=== PATIENT | female | born 1940 | race Caucasian/White ===

== ENCOUNTER 2020-11-26 14:59 | Inpatient (IN) ==
--- NOTE | 2020-11-26 15:41 | CT Scan Report ---
CT head/brain wo con CLINICAL HISTORY: 80 years-old Female with fall eval for injury. Acute head trauma status post fall TECHNIQUE: Multiple axial CT images of the head were obtained without contrast. A dose lowering tech nique was utilized adhering to the principles of ALARA. COMPARISON: CT cervical spine of same day FINDINGS: No acute intracranial hemorrhage, midline shift, intracranial mass, hydrocephalus, territorial ischem ia or abnormal extra-axial collection. Age-related involutional changes with patchy white matter hypo densities suggestive of chronic microvascular ischemic disease. Subcentimeter hypodensity of the left lentiform nucleus suggests chronic lacunar infarct. The calvarium is intact. Prior bilateral lens replacement. Small left supraorbital soft tissue contus ion. The paranasal sinuses, mastoid air cells, and middle ear cavities are clear. IMPRESSION: 1. No acute intracranial abnormality or calvarial fracture. 2. Small left supraorbital scalp contusion. ACT 112: Negative or not required by law. The above report was generated using voice recognition software. It may contain grammatical, syntax o r spelling errors. Electronically signed by: Lonnie Loya M.D. 11/26/2020 3:40 PM
--- NOTE | 2020-11-26 15:49 | CT Scan Report ---
CT cervical spine wo con CT DOSE: 1020.15 mGy.cm CLINICAL HISTORY: 80 years-old Female with fall eval for injury. Acute head and neck injury status p ost fall COMPARISON: Head CT of same day TECHNIQUE: Multiple axial CT images of the cervical spine were obtained without contrast. A dose low ering technique was utilized adhering to the principles of ALARA. FINDINGS: Demineralized appearance of the bones. Severe degeneration at C1-C2. Moderate disc space na rrowing at C5-C6 and C6-C7 with moderate to severe multilevel facet arthrosis. 3 mm anterolisthesis C 7 on T1 is likely on a degenerative basis secondary to chronic severe facet arthrosis. Nuchal ligamen t calcifications. Mastoid air cells and middle ear cavities are clear. No acute fracture or subluxati on. Right IJ Mjmofb-[id number]-Qbiz catheter. No pneumothorax. Enlarged heterogeneous thyroid. Calcified plaque of the carotid bulbs. No prevertebral edema. IMPRESSION: No acute fracture or subluxation. ACT 112: Negative or not required by law. The above report was generated using voice recognition software. It may contain grammatical, syntax o r spelling errors. Electronically signed by: Lonnie Loya M.D. 11/26/2020 3:47 PM
[2020-11-26] MEDS ORDERED: SODIUM CHLORIDE 0.9% 500 ML IV SCH (16:00)
--- NOTE | 2020-11-26 16:03 | Emergency Department Note ---
History of Present Illness General Chief complaint: Fall Stated complaint: FALL, LEFT SIDE HEAD PAIN Time Seen by Provider: 11/26/20 15:06 Source: patient and family History of Present Illness Provider complaint: Generalized weakness Onset (ago): week(s) Location: head Pain Consistency: + constant Maximum Pain Intensity: 4 Quality: + other (Generalized weakness) Relieved By: + none Associated symptoms: + weakness; no chest pain, no cough, no fever/chills, no headaches, no nausea/vomiting and no shortness of breath This is an 80-year-old female with a history of bladder cancer status post surgical resection on the of this month at [facility] presenting with generalized weakness and fall today. The patient states that she has been feeling unsteady and as she was walking today she fell forward and hit her head on the ground. She had no LOC. She has a small laceration to her forehead but denies any significant pain. She states that she has been generally weak since his surgery. She has been having a sore throat since the intubation as the surgery was 7 hours. She sometimes feels nauseous and has been having difficulty eating and drinking. Her son states that she has been refusing her Zofran and Tylenol and has been generally weak. He requests that she be placed in a rehab hospital as they cannot manage taking care of her at home. She denies any chest pain, cough, shortness of breath, vomiting or cold symptoms. She states that her abdominal pain has been getting better since the surgery. She does state that she thinks her naqeinjz-uz-bco took her temperature last night and it was about 100. She denies any other injuries from the fall. She has no hip pain or shoulder or extremity pain. She denies any neck pain. Home Medications Medication Instructions Recorded Confirmed Type cyanocobalamin (vitamin B-12) 1,000 mcg PO DAILY 11/26/20 11/26/20 History [Vitamin B-12] enoxaparin 40 mg SUBCUT DAILY 11/26/20 11/26/20 History hydrochlorothiazide 25 mg PO DAILY 11/26/20 11/26/20 History losartan 100 mg PO DAILY 11/26/20 11/26/20 History Allergies Allergy/AdvReac Type Severity Reaction Status Date / Time ciprofloxacin [From Cipro] Allergy Mild Unknown Verified 11/26/20 17:43 levofloxacin [From Levaquin] Allergy Mild Unknown Verified 11/26/20 17:43 Penicillins Allergy Mild Unknown Unverified 11/26/20 17:43 Sulfa (Sulfonamide Allergy Mild Unknown Unverified 11/26/20 17:43 Antibiotics) SODIUM BRAVITOL Allergy Mild Unknown Uncoded 11/26/20 17:43 Past Med/Surg History Medical History Bladder cancer Social History Smoking Status: Former smoker Hx Alcohol Use: No Hx Substance Use: No Preferred Language: French Communication Ability: Effective Beliefs That Will Affect Care: None Current Living Situation: Family Other Information That Helps Us Care for You: No Feels Safe at Home: Yes Safety Concerns: Feels Safe At This Time Assistive Devices: Glasses and Walker Assistive Devices Comment: reading glasses not here Review of Systems See HPI for pertinent positives & negatives. and A total of 10 systems reviewed and were otherwise negative Physical Exam Vital Signs Vital Signs - 24 hr 11/26/20 15:10 11/26/20 16:42 11/26/20 17:01 Temperature 36.7 C Temperature Source Oral Pulse Rate 76 71 79 Pulse Rate [Apical] Pulse Rate from SpO2 Sensor 71 79 Pulse Rhythm Regular Respiratory Rate 17 19 20 Respiratory Effort / Characteristics Non-Labored Spontaneous Respiratory Depth Normal Respiratory Pattern Regular Blood Pressure 111/42 L 132/48 L 133/53 L Blood Pressure [Right Arm] Blood Pressure Mean 65 76 79 Blood Pressure Mean [Right Arm] Pulse Oximetry 99 100 100 Oxygen Delivery Method Room Air Sepsis Recent Fever Within 48 Hours No Sepsis New/Unexplained Change in Mental Status No Sepsis Action Taken by Nursing No Action Required 11/26/20 18:00 11/26/20 18:19 Temperature 36.7 C Temperature Source Oral Pulse Rate 77 Pulse Rate [Apical] 76 Pulse Rate from SpO2 Sensor Pulse Rhythm Respiratory Rate 23 19 Respiratory Effort / Characteristics Non-Labored Respiratory Depth Normal Respiratory Pattern Regular Blood Pressure 134/47 L Blood Pressure [Right Arm] 134/47 L Blood Pressure Mean 76 Blood Pressure Mean [Right Arm] 76 Pulse Oximetry 96 94 Oxygen Delivery Method Room Air Sepsis Recent Fever Within 48 Hours Sepsis New/Unexplained Change in Mental Status Sepsis Action Taken by Nursing Constitutional: Vital signs reviewed. Eyes: Pupils are equal round reactive to light. Conjunctiva are noninjected. No EOM entrapment. ENT: Pharynx is clear without erythema or exudate. Mucous membranes are dry. Bruising around the left orbit with a 0.5 cm very superficial laceration to the left forehead. No bony tenderness to the orbit or midface or jaw. Neck supple without meningeal signs. No midline tenderness to the cervical spine. Respiratory: Clear to auscultation bilaterally. Breath sounds are equal bila terally. Cardiovascular: Regular rate and rhythm. No rubs or gallops. GI: Soft, nondistended. Bowel sounds are present. Ostomy draining into a Patterson catheter with clear yellow urine. Midline incision is clean dry and intact. No drainage or erythema or significant tenderness in the abdomen. Musculoskeletal: No peripheral edema. No lower extremity tenderness. Integumentary: No cyanosis. or jaundice. Neurologic: The patient is awake and alert. Cranial nerves II-XII are intact. Motor is 5 out of 5 all extremities. Sensation is intact to light touch all extremities. Normal speech. No pronator drift. No limb ataxia. Psychiatric: Normal affect. Not anxious appearing. Course Administered Medications Potassium Chloride/Sodium Chloride (Normal Saline W/20 Meq Kcl) 20 meq in 1,000 mls @ 125 mls/hr IV .Q8H NIRANJAN Stop: 11/28/20 04:29 Last Admin: 11/26/20 20:33 Dose: 125 mls/hr Documented by: [id number] Discontinued Medications Sodium Chloride (Nss) 500 mls @ 125 mls/hr IV .Q4H NIRANJAN Stop: 12/26/20 15:59 Last Infusion: 11/26/20 20:20 Dose: 0 mls/hr Documented by: [id number] Admin: 11/26/20 16:20 Dose: 125 mls/hr Documented by: [id number] Ceftriaxone Sodium (Rocephin) 2,000 mg in 70 mls @ 140 mls/hr IV NOW STA Stop: 11/26/20 18:01 Last Infusion: 11/26/20 18:34 Dose: 0 mls/hr Documented by: [id number] Admin: 11/26/20 17:49 Dose: 140 mls/hr Documented by: [id number] Potassium Chloride (Potassium Chloride Crtab 20 Meq Tabcr) 40 meq PO NOW STA Stop: 11/26/20 19:09 Last Admin: 11/26/20 20:28 Dose: 40 meq Documented by: [id number] Medical Decision Making Differential Diagnosis Dehydration, metabolic derangement, intracranial hemorrhage, concussion, anemia, UTI, pneumonia Medical Records Attestation: I reviewed the patient's medical records. I did perform a limited focused review of portions of the patient's old chart on the electronic medical record. The patient has had no recent pertinent visits to this hospital. Home Medications Current Medication List: was personally reviewed by me Laboratory Data Attestation: I reviewed the patient's lab results. Result diagrams: 11/26/20 16:15 11/26/20 16:15 Lab Results 11/26/20 11/26/20 11/26/20 Range/Units 16:15 16:15 16:40 WBC 13.96 H (4.8-10.8) K/uL RBC 2.53 L (4.2-5.4) M/uL Hgb 8.6 L (12.0-16.0) g/dL Hct 26.6 L (37-47) % MCV 105.1 H (80-100) fL MCH 34.0 (25-34) pg MCHC 32.3 (32-36) g/dL RDW Std Deviation 55.7 H (36.4-46.3) fL RDW Coeff of Emmett 14.4 (11.5-14.5) % Plt Count 472 H (130-400) K/uL MPV 9.9 (7.4-10.4) fL Immature Gran % (Auto) 0.4 % Neut % (Auto) 84.8 % Lymph % (Auto) 5.9 % [place] % (Auto) 8.7 % Eos % (Auto) 0.1 % Baso % (Auto) 0.1 % Neut # (Auto) 11.83 H (1.4-6.5) K/uL Lymph # (Auto) 0.83 L (1.2-3.4) K/uL [place] # (Auto) 1.22 H (0.11-0.59) K/uL Eos # (Auto) 0.01 (0-0.5) K/uL Baso # (Auto) 0.02 (0-0.2) K/uL Immature Gran # (Auto) 0.05 H (0.00-0.02) K/uL Sodium 140 (136-145) mmol/L Potassium 3.1 L (3.5-5.1) mmol/L Chloride 103 (98-107) mmol/L Carbon Dioxide 33 H (21-32) mmol/L Anion Gap 4.0 (3-11) BUN 49 H (7-18) mg/dl Creatinine 1.69 H (0.6-1.2) mg/dl Est Cr Clr Drug Dosing 25.6 ml/min Est GFR ( Amer) 32.2 Est GFR (Non-Af Amer) 27.8 BUN/Creatinine Ratio 29.0 H (10-20) Glucose 154 H (70-99) mg/dl Calcium 9.0 (8.5-10.1) mg/dl Magnesium 2.1 (1.8-2.4) mg/dl Total Bilirubin 0.6 (0.2-1) mg/dl AST 12 L (15-37) U/L ALT 16 (12-78) U/L Alkaline Phosphatase 105 (45-117) U/L Troponin I < 0.015 (0-0.045) ng/ml Total Protein 6.0 L (6.4-8.2) gm/dl Albumin 2.1 L (3.4-5.0) gm/dl Globulin 3.9 (2.5-4.0) gm/dl Albumin/Globulin Ratio 0.5 L (0.9-2) TSH 0.600 (0.300-4.500) uIu/ml Urine Color Yellow Urine Appearance Turbid A (Clear) Urine pH 8.0 H (4.5-7.5) Ur Specific [place] 1.015 (1.000-1.030) Urine Protein 2+ H (Negative) Urine Glucose (UA) Negative (Negative) Urine Ketones Negative (Negative) Urine Blood 1+ H (Negative) Urine Nitrite Positive A (Negative) Urine Bilirubin Negative (Negative) Urine Urobilinogen Negative (Negative) Ur Leukocyte Esterase 1+ H (Negative) Urine RBC 5-10 H (0-4) /hpf Urine WBC 10-30 H (0-5) /hpf Ur Epithelial Cells 0-5 (0-5) /lpf Urine Bacteria 2+ H (Negative) Hyaline Casts 5-10 H (0-5) /lpf Granular Casts 1-5 H (0) /lpf Urine Yeast Budding w/ Hyphae A (None Prsent) COVID-19 Eval Order SARS-CoV-2 (PCR) (Negative) Influenza Type A (PCR) (Neg) Influenza Type B (PCR) (Neg) RSV (RT-PCR) (Neg) 11/26/20 11/26/20 Range/Units 17:52 17:52 WBC (4.8-10.8) K/uL RBC (4.2-5.4) M/uL Hgb (12.0-16.0) g/dL Hct (37-47) % MCV (80-100) fL MCH (25-34) pg MCHC (32-36) g/dL RDW Std Deviation (36.4-46.3) fL RDW Coeff of Emmett (11.5-14.5) % Plt Count (130-400) K/uL MPV (7.4-10.4) fL Immature Gran % (Auto) % Neut % (Auto) % Lymph % (Auto) % [place] % (Auto) % Eos % (Auto) % Baso % (Auto) % Neut # (Auto) (1.4-6.5) K/uL Lymph # (Auto) (1.2-3.4) K/uL [place] # (Auto) (0.11-0.59) K/uL Eos # (Auto) (0-0.5) K/uL Baso # (Auto) (0-0.2) K/uL Immature Gran # (Auto) (0.00-0.02) K/uL Sodium (136-145) mmol/L Potassium (3.5-5.1) mmol/L Chloride (98-107) mmol/L Carbon Dioxide (21-32) mmol/L Anion Gap (3-11) BUN (7-18) mg/dl Creatinine (0.6-1.2) mg/dl Est Cr Clr Drug Dosing ml/min Est GFR ( Amer) Est GFR (Non-Af Amer) BUN/Creatinine Ratio (10-20) Glucose (70-99) mg/dl Calcium (8.5-10.1) mg/dl Magnesium (1.8-2.4) mg/dl Total Bilirubin (0.2-1) mg/dl AST (15-37) U/L ALT (12-78) U/L Alkaline Phosphatase (45-117) U/L Troponin I (0-0.045) ng/ml Total Protein (6.4-8.2) gm/dl Albumin (3.4-5.0) gm/dl Globulin (2.5-4.0) gm/dl Albumin/Globulin Ratio (0.9-2) TSH (0.300-4.500) uIu/ml Urine Color Urine Appearance (Clear) Urine pH (4.5-7.5) Ur Specific [place] (1.000-1.030) Urine Protein (Negative) Urine Glucose (UA) (Negative) Urine Ketones (Negative) Urine Blood (Negative) Urine Nitrite (Negative) Urine Bilirubin (Negative) Urine Urobilinogen (Negative) Ur Leukocyte Esterase (Negative) Urine RBC (0-4) /hpf Urine WBC (0-5) /hpf Ur Epithelial Cells (0-5) /lpf Urine Bacteria (Negative) Hyaline Casts (0-5) /lpf Granular Casts (0) /lpf Urine Yeast (None Prsent) COVID-19 Eval Order CovFluRsv at [facility] SARS-CoV-2 (PCR) NEGATIVE (Negative) Influenza Type A (PCR) Negative (Neg) Influenza Type B (PCR) Negative (Neg) RSV (RT-PCR) Negative (Neg) Imaging Data My Impression: CT head/brain wo con CLINICAL HISTORY: 80 years-old Female with fall eval for injury. Acute head trauma status post fall TECHNIQUE: Multiple axial CT images of the head were obtained without contrast. A dose lowering technique was utilized adhering to the principles of ALARA. COMPARISON: CT cervical spine of same day FINDINGS: No acute intracranial hemorrhage, midline shift, intracranial mass, hydrocephalus, territorial ischemia or abnormal extra-axial collection. Age- related involutional changes with patchy white matter hypodensities suggestive of chronic microvascular ischemic disease. Subcentimeter hypodensity of the left lentiform nucleus suggests chronic lacunar infarct. The calvarium is intact. Prior bilateral lens replacement. Small left sup raorbital soft tissue contusion. The paranasal sinuses, mastoid air cells, and middle ear cavities are clear. IMPRESSION: 1. No acute intracranial abnormality or calvarial fracture. 2. Small left supraorbital scalp contusion. ACT 112: Negative or not required by law. The above report was generated using voice recognition software. It may contain grammatical, syntax or spelling errors. Electronically signed by: Lonnie Loya M.D. 11/26/2020 3:40 PM Dictated: 11/26/20 1537 Transcribed: 11/26/[address] cervical spine wo con CT DOSE: 1020.15 mGy.cm CLINICAL HISTORY: 80 years-old Female with fall eval for injury. Acute head and neck injury status post fall COMPARISON: Head CT of same day TECHNIQUE: Multiple axial CT images of the cervical spine were obtained without contrast. A dose lowering technique was utilized adhering to the principles of ALARA. FINDINGS: Demineralized appearance of the bones. Severe degeneration at C1-C2. Moderate disc space narrowing at C5-C6 and C6-C7 with moderate to severe multilevel facet arthrosis. 3 mm anterolisthesis C7 on T1 is likely on a degenerative basis secondary to chronic severe facet arthrosis. Nuchal ligament calcifications. Mastoid air cells and middle ear cavities are clear. No acute fracture or subluxation. Right IJ Xbfzfh-e-Ctoc catheter. No pneumothorax. Enlarged heterogeneous thyroid. Calcified plaque of the carotid bulbs. No prevertebral edema. IMPRESSION: No acute fracture or subluxation. ACT 112: Negative or not required by law. The above report was generated using voice recognition software. It may contain grammatical, syntax or spelling errors. Electronically signed by: Lonnie Loya M.D. 11/26/2020 3:47 PM Dictated: 11/26/20 1540 Transcribed: 11/26/20 1540 XR chest 1V portable CLINICAL HISTORY: weakness COMPARISON STUDY: Chest radiograph 09/16/2007. FINDINGS: Lung volumes are normal. Lungs are clear. There is no pneumothorax or pleural effusion. Cardiac size is normal. Mediastinal contours are normal. There is no evidence for pulmonary edema. A right internal jugular [id number] is in place. IMPRESSION: No acute cardiopulmonary findings. ACT 112: Negative or not required by law. Electronically signed by: Sky Napier M.D. 11/26/2020 4:37 PM Dictated: 11/26/20 1636Transcribed: 11/26/20 1636 ECG Data Attestation: I personally reviewed and interpreted this ECG as follows: Indication: + weakness Rate (beats per minute): 75 Rhythm: + normal sinus ECG Liguori: + Normal ECG ST segments: no ST elevation ECG Findings: no PVCs Head Trauma GCS Score: 15 MDM Narrative I did evaluate the patient as noted above. Patient is presenting with generalized weakness and a low-grade temperature last night. She is postop approximately 15 days. She denies any significant abdominal pain and states that her abdomen feels better. Her son is concerned that she cannot be cared for at home due to her increased weakness. IV access was established. I did place an order for continuous cardiac monitoring. The monitor showed normal sinus rhythm at a rate of 70 bpm. I did order and personally review the patient's 12-lead EKG as described above. She has no acute ischemic changes on twelve-lead EKG. I did order and personally reviewed the images of the patient's chest x-ray as described above. There is no evidence of pneumonia. I did order a urine analysis. She does have a UTI. She does have multiple drug allergies. She is not sure if she is taking cephalosporins before. I did treat her with 2 g of IV ceftriaxone. I did order and review the patient's blood work as noted in the electronic medical record. Her white blood cell count is 13.9. Her hemoglobin is 8.6. Platelets are 472. Electrolytes demonstrate hypokalemia with a potassium of 3.1. Creatinine is 1.69. Baseline is unclear. She was given normal saline IV. I did order a CT of the head and cervical spine. I did review the images myself as well as the radiology report as described above. There is no evidence of acute cervical fracture or dislocation. No acute intracranial abnormality. I did discuss the test results with the patient and her son. I did recommend hospitalization for further care and evaluation. I did discuss case with the hospitalist and high risk case manager. Impression & Plan Complicated UTI (urinary tract infection), Generalized weakness, Fall, Acute head injury, Anemia, Acute hypokalemia, Elevated serum creatinine Discharge Plan Visit Data Chief Complaint: Fall Stated Complaint: FALL, LEFT SIDE HEAD PAIN ED Provider: Colt Moore Discharge Problem: Complicated UTI (urinary tract infection), Generalized weakness, Fall, Acute head injury, Anemia, Acute hypokalemia, Elevated serum creatinine Patient Disposition: Admitted As Inpatient Discharge Instructions Interventions: ED Discharge Assessment Last Done: 11/26/20 19:31
[2020-11-26 16:30] LABS: Basophils # (auto) 0.02 K/uL (0-0.2); Basophils % (auto) 0.1 %; Eosinophils # (auto) 0.01 K/uL (0-0.5); Eosinophils % (auto) 0.1 %; Hematocrit (blood only) 26.6 % (37-47); Hemoglobin 8.6 g/dL (12.0-16.0); Immature Granulocytes # (auto) 0.05 K/uL (0.00-0.02); Immature Granulocytes % (auto) 0.4 %; Lymphocytes # (auto) 0.83 K/uL (1.2-3.4); Lymphocytes % (auto) 5.9 %; Mean Corpuscular Hgb Conc 32.3 g/dL (32-36); Mean Corpuscular Volume 105.1 fL (80-100); Mean Platelet Volume 9.9 fL (7.4-10.4); Monocytes # (auto) 1.22 K/uL (0.11-0.59); Monocytes % (auto) 8.7 %; Neutrophils # (auto) 11.83 K/uL (1.4-6.5); Neutrophils % (auto) 84.8 %; Platelet Count 472 K/uL (130-400); RDW Coefficient of Variation 14.4 % (11.5-14.5); RDW Standard Deviation 55.7 fL (36.4-46.3); Red Blood Count 2.53 M/uL (4.2-5.4); White Blood Count 13.96 K/uL (4.8-10.8)
--- NOTE | 2020-11-26 16:38 | XRay Report ---
XR chest 1V portable CLINICAL HISTORY: weakness COMPARISON STUDY: Chest radiograph 09/16/2007. FINDINGS: Lung volumes are normal. Lungs are clear. There is no pneumothorax or pleural effusion. Car diac size is normal. Mediastinal contours are normal. There is no evidence for pulmonary edema. A rig ht internal jugular [id number]-[id number] is in place. IMPRESSION: No acute cardiopulmonary findings. ACT 112: Negative or not required by law. Electronically signed by: Sky Napier M.D. 11/26/2020 4:37 PM
--- NOTE | 2020-11-26 16:49 | Electrocardiogram Report ---
Test Reason : Blood Pressure : / mmHG Vent. Rate : 075 BPM Atrial Rate : 075 BPM P-R Int : 136 ms QRS Dur : 078 ms QT Int : 404 ms P-R-T Axes : 056 035 024 degrees QTc Int : 451 ms Normal sinus rhythm Normal ECG No previous ECGs available Confirmed by Bennett Reyes ([id number]) on 11/26/2020 4:49:21 PM Referred By: REFERRED SELF Confirmed By:Ghassan Reyes
[2020-11-26 16:50] LABS: Alanine Aminotransferase 16 U/L (12-78); Albumin Level 2.1 gm/dl (3.4-5.0); Aspartate Aminotransferase 12 U/L (15-37); Blood Urea Nitrogen 49 mg/dl (7-18); Carbon Dioxide 33 mmol/L (21-32); Chloride 103 mmol/L (98-107); Creatinine Clr Calc Pharmacy 25.6 ml/min; Est GFR (African American) 32.2; Est GFR (Non-African American) 27.8; Glucose 154 mg/dl (70-99); Magnesium 2.1 mg/dl (1.8-2.4); Potassium 3.1 mmol/L (3.5-5.1); Sodium 140 mmol/L (136-145)
[2020-11-26 17:02] LABS: Appearance Urine Turbid (Clear); Bilirubin Urine Negative (Negative); Blood Urine 1+ (Negative); Color Urine Yellow; Glucose Urine UA Negative (Negative); Ketones Urine Negative (Negative); Leukocyte Esterase Urine 1+ (Negative); Nitrite Urine Positive (Negative); Protein Urine 2+ (Negative); Specific Gravity Urine 1.015 (1.000-1.030); Urobilinogen Urine Negative (Negative)
[2020-11-26 17:05] LABS: Albumin Globulin Ratio 0.5 (0.9-2); Alkaline Phosphatase 105 U/L (45-117); Bilirubin,Total 0.6 mg/dl (0.2-1); Globulin 3.9 gm/dl (2.5-4.0); Troponin I < 0.015 ng/ml (0-0.045)
[2020-11-26 17:06] LABS: Bacteria Urine 2+ (Negative); Epithelial Cell Urine 0-5 /lpf (0-5)
[2020-11-26] MEDS ORDERED: cefTRIAXone SODIUM 2,000 MG/70 ML BAG IV STA (17:32)
[2020-11-26 19:04] LABS: Influenza A virus by PCR Negative (Neg); Influenza B virus by PCR Negative (Neg); RSV by PCR Negative (Neg); SARS CoV2 RNA(COVID-19) InHosp NEGATIVE (Negative)
--- NOTE | 2020-11-26 19:07 | History & Physical Report ---
Date of Service November 26, 2020 Assessment & Plan (1) Complicated UTI (urinary tract infection): Recent complete cystectomy with ureteral ileal conduit on 11/11/2020 Has been complaining of weakness with fever Noted to have UTI on UA examination Received ceftriaxone 2 g IV and will continue with 1 g daily Urine and blood cultures have been sent-await sensitivity (2) S/P ileal conduit: Recent complete hysterectomy with ureteral ileal conduit on 11/11/2020 Conduit site looks intact with clean urine (3) Bladder cancer: History of bladder cancer and is status post surgery as above Status post hysterectomy and pelvic lymphadenectomy on 11/11/2020 (4) Acute kidney injury superimposed on chronic kidney disease: History of CKD stage IIIb Has acute on chronic kidney disease Will give adequate amount of intravenous fluid and monitor creatinine (5) Hypertension: Will hold hydrochlorothiazide and lisinopril for now (6) Generalized weakness: Likely secondary to recent complex surgery on 11/11/2020 We will get PT and OT evaluation (7) Status post fall: Mechanical fall without any significant injury CT of the head and neck remain unremarkable Minor superficial injury left forehead and adjoining area of the eyebrow DVT prophylaxis Subcu Lovenox CODE STATUS Full History of Present Illness Chief Complaint: Fever, weakness and fall Primary Care Provider: Gumaro Rivera DO She is an 80-year-old female with significant past medical history of malignant neoplasm of bladder status post complete cystectomy with ureteral ileal conduit with bilateral pelvic lymphadenectomy and hysterectomy on 11/11/2020 and also history of hypertension and chronic kidney disease apparently has had a mechanical fall this afternoon at home when she missed a step and ended up falling. No loss of consciousness. Apparently she has been complaining of extreme weakness and tiredness since after surgery and has been getting home PT and OT evaluation to get back her strength. She complains to have fever with occasional sweating at home. His drainage from the eye ileal conduit does not look that dirty. She denies any significant pain in the abdomen. She has bruising involving the left side of the forehead and adjoining left eyebrow but no other significant injury from the fall. She was noted to have UTI on UA examination and also clinically dry with acute on chronic kidney disease. She was admitted to medical telemetry unit for continuation of care Allergies Allergy/AdvReac Type Severity Reaction Status Date / Time ciprofloxacin [From Cipro] Allergy Mild Unknown Verified 11/26/20 17:43 levofloxacin [From Levaquin] Allergy Mild Unknown Verified 11/26/20 17:43 Penicillins Allergy Mild Unknown Unverified 11/26/20 17:43 Sulfa (Sulfonamide Allergy Mild Unknown Unverified 11/26/20 17:43 Antibiotics) SODIUM BRAVITOL Allergy Mild Unknown Uncoded 11/26/20 17:43 Home Medications Medication Instructions Recorded Confirmed Type cyanocobalamin (vitamin B-12) 1,000 mcg PO DAILY 11/26/20 11/26/20 History [Vitamin B-12] enoxaparin 40 mg SUBCUT DAILY 11/26/20 11/26/20 History hydrochlorothiazide 25 mg PO DAILY 11/26/20 11/26/20 History losartan 100 mg PO DAILY 11/26/20 11/26/20 History Past Med/Surg History Medical History Bladder cancer Social History Smoking Status: Former smoker Hx Alcohol Use: No Hx Substance Use: No Preferred Language: Cypriot Communication Ability: Effective Beliefs That Will Affect Care: None Current Living Situation: Family Other Information That Helps Us Care for You: No Feels Safe at Home: Yes Safety Concerns: Feels Safe At This Time Assistive Devices: Glasses and Walker Assistive Devices Comment: reading glasses not here Review of Systems Review of Systems: All systems reviewed & are unremarkable except as noted in HPI & below Physical Exam Physical Exam: Lying in bed with profound weakness but no apparent distress Constitutional: + ill appearing, average body habitus and + in distress Eyes: PERRL, conjunctivae normal, anicteric sclerae ENMT: external ear and nose normal, oropharynx normal Neck: trachea midline, no thyromegaly Respiratory: no respiratory distress Auscultation: lungs clear to au scultation bilaterally Cardiovascular: Rate/Rhythm: regular rate and regular rhythm Heart Sounds: no murmur Extremities: no edema Gastrointestinal (Abdomen): Inspection/Auscultation: normal bowel sounds; abdomen not distended Percussion/Palpation: + abdomen tender (Lower abdomen) and abdomen soft Musculoskeletal: No acute arthritis in any joint Neurologic: Alert, awake and oriented x3. Generally very weak and lethargic but moving all the limbs equally Psychiatric: A+Ox3, euthymic affect Lymphatic: no cervical or axillary lymphadenopathy Results & Data Results & Data ([facility]) Vital Signs (Past 12 Hours) Vital Signs Temp Pulse Pulse Resp BP BP Pulse Ox 11/26/20 18:19 36.7 C 76 19 134/47 L 94 11/26/20 17:01 79 20 133/53 L 100 11/26/20 16:42 71 19 132/48 L 100 11/26/20 15:10 36.7 C 76 17 111/42 L 99 Laboratory Results Short CBC 11/26/20 Range/Units 16:15 WBC 13.96 H (4.8-10.8) K/uL Hgb 8.6 L (12.0-16.0) g/dL Hct 26.6 L (37-47) % Plt Count 472 H (130-400) K/uL BMP 11/26/20 16:15 Sodium 140 Potassium 3.1 L Chloride 103 Carbon Dioxide 33 H BUN 49 H Creatinine 1.69 H Glucose 154 H Calcium 9.0 Cardiac Enzymes 11/26/20 Range/Units 16:15 Troponin I < 0.015 (0-0.045) ng/ml Liver Function 11/26/20 Range/Units 16:15 Total Bilirubin 0.6 (0.2-1) mg/dl AST 12 L (15-37) U/L ALT 16 (12-78) U/L Alkaline Phosphatase 105 (45-117) U/L Albumin 2.1 L (3.4-5.0) gm/dl Urine 11/26/20 Range/Units 16:40 Urine Color Yellow Urine Appearance Turbid A (Clear) Urine pH 8.0 H (4.5-7.5) Ur Specific [place] 1.015 (1.000-1.030) Urine Protein 2+ H (Negative) Urine Glucose (UA) Negative (Negative) Medications Administered Current Inpatient Medications Sodium Chloride (Nss) 500 mls @ 125 mls/hr IV .Q4H NIRANJAN Stop: 12/26/20 15:59 Last Admin: 11/26/20 16:20 Dose: 125 mls/hr Documented by: Ceftriaxone Sodium 1,000 mg/ (Dextrose) 50 mls @ 100 mls/hr IV Q24H NIRANJAN; Protocol Stop: 12/06/20 18:59 Code Status & VTE Plan VTE Prophylaxis Plan VTE Prophylaxis will be ordered: Yes
[2020-11-26] MEDS ORDERED: POTASSIUM CHLORIDE CRTAB 20 MEQ TABCR PO STA (19:08)
[2020-11-26] MEDS: NSS + 20MEQ KCL 20 MEQ/1,000 ML BAG IV SCH (20:33)
[2020-11-27] MEDS: NSS + 20MEQ KCL 20 MEQ/1,000 ML BAG IV SCH ×3 (05:01→20:33)
[2020-11-27 07:17] LABS: Basophils # (auto) 0.02 K/uL (0-0.2); Basophils % (auto) 0.2 %; Eosinophils # (auto) 0.08 K/uL (0-0.5); Eosinophils % (auto) 0.6 %; Hematocrit (blood only) 24.4 % (37-47); Hemoglobin 7.9 g/dL (12.0-16.0); Immature Granulocytes # (auto) 0.09 K/uL (0.00-0.02); Immature Granulocytes % (auto) 0.7 %; Lymphocytes # (auto) 1.18 K/uL (1.2-3.4); Mean Corpuscular Hemoglobin 33.9 pg (25-34); Mean Corpuscular Hgb Conc 32.4 g/dL (32-36); Mean Corpuscular Volume 104.7 fL (80-100); Monocytes # (auto) 1.32 K/uL (0.11-0.59); Monocytes % (auto) 10.1 %; Neutrophils # (auto) 10.35 K/uL (1.4-6.5); Neutrophils % (auto) 79.4 %; Platelet Count 412 K/uL (130-400); RDW Coefficient of Variation 14.7 % (11.5-14.5); RDW Standard Deviation 56.2 fL (36.4-46.3); Red Blood Count 2.33 M/uL (4.2-5.4); White Blood Count 13.04 K/uL (4.8-10.8)
[2020-11-27 07:45] LABS: BUN Creatinine Ratio 32.7 (10-20); Calcium 8.5 mg/dl (8.5-10.1); Creatinine Clr Calc Pharmacy 33.8 ml/min; Est GFR (African American) 45.1; Est GFR (Non-African American) 38.9; Magnesium 2.1 mg/dl (1.8-2.4); Phosphorus 2.8 mg/dl (2.5-4.9); Potassium 3.6 mmol/L (3.5-5.1)
[2020-11-27 07:50] LABS: Rouleaux 1+
[2020-11-27] MEDS: ENOXAPARIN INJ 40 MG/0.4 ML SYR SQ SCH (08:37)
[2020-11-27] MEDS: CYANOCOBALAMIN 500 MCG TABLET (VITAMIN B-12) PO SCH (08:38)
[2020-11-27] MEDS ORDERED: ENOXAPARIN INJ 30 MG/0.3 ML SYR SQ SCH (09:00)
[2020-11-27] MEDS: LOSARTAN POTASSIUM 50 MG TAB PO SCH (11:51)
--- NOTE | 2020-11-27 16:01 | Hospitalist Progress Note ---
Date of Service November 27, 2020 Assessment & Plan (1) Complicated UTI (urinary tract infection): Recent complete cystectomy with ureteral ileal conduit on 11/11/2020 Has been complaining of weakness with fever Noted to have UTI on UA examination Received ceftriaxone 2 g IV and will continue with 1 g daily Urine is growing pinpoint growth and reintubating Blood cultures grew gram-negative bacilli-further identification and sensitivity are pending (2) S/P ileal conduit: Recent complete hysterectomy with ureteral ileal conduit on 11/11/2020 Conduit site looks intact with clean urine (3) Bladder cancer: History of bladder cancer and is status post surgery as above Status post hysterectomy and pelvic lymphadenectomy on 11/11/2020 (4) Acute kidney injury superimposed on chronic kidney disease: History of CKD stage IIIb Has acute on chronic kidney disease Will give adequate amount of intravenous fluid and monitor creatinine Creatinine has been improving and will restart losartan to control blood pressure (5) Hypertension: Will hold hydrochlorothiazide and lisinopril for now Losartan has been restarted Continue to hold hydrochlorothiazide (6) Generalized weakness: Likely secondary to recent complex surgery on 11/11/2020 We will get PT and OT evaluation (7) Status post fall: Mechanical fall without any significant injury CT of the head and neck remain unremarkable Minor superficial injury left forehead and adjoining area of the eyebrow We will get PT and OT evaluation DVT prophylaxis Subcu Lovenox CODE STATUS Full Admission and Anticipated Discharge Date Admission Date: November 26, 2020 Subjective 11/27/2020 Patient was seen and examined in medical telemetry unit She has been feeling a little bit better today Remains generally weak but otherwise stable Denies any fever and/or chills, any abdominal pain nausea and or vomiting Review of Systems Review of Systems: All systems reviewed and are unremarkable except as noted below Neurologic: + generalized weakness Physical Exam Physical Exam: Lying in bed with profound weakness but no apparent distress Constitutional: + ill appearing, average body habitus and + in distress Eyes: PERRL, conjunctivae normal, anicteric sclerae ENMT: external ear and nose normal, oropharynx normal Neck: trachea midline, no thyromegaly Respiratory: no respiratory distress Auscultation: lungs clear to auscultation bilaterally Cardiovascular: Rate/Rhythm: regular rate and regular rhythm Heart Sounds: no murmur Extremities: no edema Gastrointestinal (Abdomen): Inspection/Auscultation: normal bowel sounds; abdomen not distended Percussion/Palpation: + abdomen tender (Lower abdomen) and abdomen soft Musculoskeletal: No acute arthritis in any joint Neurologic: Alert, awake and oriented x3. Generally weak but no neuro deficit Psychiatric: A+Ox3, euthymic affect Lymphatic: no cervical or axillary lymphadenopathy Results & Data Results & Data ([facility]) Vital Signs (Past 12 Hours) Vital Signs Temp Pulse Resp BP Pulse Ox 11/27/20 15:18 36.4 C L 108 H 20 106/50 L 98 11/27/20 11:42 36.7 C 79 18 118/54 L 93 11/27/20 07:32 36.9 C 80 20 131/57 L 98 Laboratory Results Short CBC 11/26/20 11/27/20 Range/Units 16:15 06:47 WBC 13.96 H 13.04 H (4.8-10.8) K/uL Hgb 8.6 L 7.9 L (12.0-16.0) g/dL Hct 26.6 L 24.4 L (37-47) % Plt Count 472 H 412 H (130-400) K/uL BMP 11/26/20 11/27/20 16:15 06:47 Sodium 140 141 Potassium 3.1 L 3.6 D Chloride 103 108 H Carbon Dioxide 33 H 29 BUN 49 H 42 H Creatinine 1.69 H 1.28 H D Glucose 154 H 106 H Calcium 9.0 8.5 Cardiac Enzymes 11/26/20 Range/Units 16:15 Troponin I < 0.015 (0-0.045) ng/ml Liver Function 11/26/20 Range/Units 16:15 Total Bilirubin 0.6 (0.2-1) mg/dl AST 12 L (15-37) U/L ALT 16 (12-78) U/L Alkaline Phosphatase 105 (45-117) U/L Albumin 2.1 L (3.4-5.0) gm/dl Urine 11/26/20 Range/Units 16:40 Urine Color Yellow Urine Appearance Turbid A (Clear) Urine pH 8.0 H (4.5-7.5) Ur Specific [place] 1.015 (1.000-1.030) Urine Protein 2+ H (Negative) Urine Glucose (UA) Negative (Negative) Medications Administered Current Inpatient Medications Cyanocobalamin (Cyanocobalamin 500 Mcg Tablet (Vitamin B-12)) 1,000 mcg PO DAILY NIRANJAN Stop: 12/27/20 08:59 Last Admin: 11/27/20 08:38 Dose: 1,000 mcg Documented by: Enoxaparin Sodium (Enoxaparin Inj 40 Mg/0.4 Ml Syr) 40 mg SQ DAILY NIRANJAN Stop: 12/27/20 08:59 Last Admin: 11/27/20 08:37 Dose: 40 mg Documented by: Ceftriaxone Sodium 1,000 mg/ (Dextrose) 50 mls @ 100 mls/hr IV Q24H NIRANJAN; Protocol Stop: 12/07/20 17:59 Potassium Chloride/Sodium Chloride (Normal Saline W/20 Meq Kcl) 20 meq in 1,000 mls @ 125 mls/hr IV .Q8H NIRANJAN Stop: 11/28/20 04:29 Last Admin: 11/27/20 11:51 Dose: 125 mls/hr Documented by: Losartan Potassium (Losartan Potassium 50 Mg Tab) 100 mg PO DAILY NIRANJAN Stop: 12/27/20 09:44 Last Admin: 11/27/20 11:51 Dose: 100 mg Documented by:
[2020-11-27] MEDS: cefTRIAXone SODIUM 1,000 MG in DEXTROSE 5% 50 ML IV SCH (18:34)
[2020-11-28] MEDS: LOSARTAN POTASSIUM 50 MG TAB PO SCH (07:48)
[2020-11-28] MEDS: ENOXAPARIN INJ 40 MG/0.4 ML SYR SQ SCH (07:48)
[2020-11-28] MEDS: CYANOCOBALAMIN 500 MCG TABLET (VITAMIN B-12) PO SCH (07:48)
--- NOTE | 2020-11-28 07:55 | Hospitalist Progress Note ---
Date of Service November 28, 2020 Assessment & Plan (1) Complicated UTI (urinary tract infection): Recent complete cystectomy with ureteral ileal conduit on 11/11/2020 Has been complaining of weakness with fever Noted to have UTI on UA examination Received ceftriaxone 2 g IV and will continue with 1 g daily Urine is growing pinpoint growth and re-incubating Blood cultures grew gram-negative bacilli, repeat ordered today to make sure blood is sterile +Leukocytosis-improving (2) S/P ileal conduit: Recent complete hysterectomy with ureteral ileal conduit on 11/11/2020 Conduit site looks intact with clean urine (3) Bladder cancer: History of bladder cancer and is status post surgery as above Status post hysterectomy and pelvic lymphadenectomy on 11/11/2020 (4) Acute kidney injury superimposed on chronic kidney disease: History of CKD stage IIIb Has acute on chronic kidney disease Creatinine has been improving restarted losartan to control blood pressure (5) Hypertension: Will hold hydrochlorothiazide and DC lisinopril, no indication for HUMZA-I/ARB combo Losartan has been restarted (6) Generalized weakness: Likely secondary to recent complex surgery on 11/11/2020 PT and OT (7) Status post fall: Mechanical fall without any significant injury CT of the head and neck unremarkable Minor superficial injury left forehead and adjoining area of the eyebrow DVT prophylaxis Subcu Lovenox CODE STATUS Full Labs checked, Hb dropped, wait today's labs ROS-No Headache, No Visual Changes, No Nausea, No Vomiting, No Fever, No Chills, No Neck Pain or Stiffness, No Chest Pain, No Palpitations, No SOB, No SANCHES, No Cough, No Sputum, No Wheezing, No Abdominal Pain, No Diarrhea, No Hematemesis, No Hemoptysis, No Unexpected Weight Loss, No Flank pain, No Melena, No Hematochezia, No Frequency, No Urgency, No Burning, No Hematuria, No Rashes, No Diaphoresis. Appetite is Normal, +Pelvic Pain Physical Exam Gen-AAO x 3, NAD, Afebrile, tender pelvis when legs moved Head-NCAT, EOMI, PERRLA, Anicteric Sclera, No Posterior Pharyngeal Erythema Neck-Supple, No JVD, No Thyromegaly, No Masses, No LAD, No Bruits Lungs-Clear to Auscultation Bilaterally, No Rales, No Rhonchi, No Wheezing, No Crepitus Chest-No S4, +S1, +S2, No S3, No Murmurs, No Rubs, No Gallops, No Ectopy Abdomen-Soft, Bowel Sounds Present, Non Tender, Non Distended, No Hepatomegaly, No Splenomegaly, No Palpable Masses, No Rebound, No Rigidity, No Guarding Musculoskeletal-No CVAT Extremities-No Cyanosis, No Clubbing, No Edema Nuero-Cranial Nerves II-XII grossly intact, Motor WNL, DTRs WNL, Strength WNL, Non Focal Psych-Normal Mood Admission and Anticipated Discharge Date Admission Date: November 26, 2020 Results & Data Results & Data ([facility]) Vital Signs (Past 12 Hours) Vital Signs Temp Pulse Pulse Resp BP Pulse Ox 11/28/20 07:28 36.5 C 94 H 18 145/69 H 97 11/28/20 03:00 36.4 C L 97 H 20 149/71 H 97 11/28/20 00:37 97 H 11/27/20 22:58 37 C 93 H 20 145/67 H 97
[2020-11-28 08:56] LABS: Basophils # (auto) 0.04 K/uL (0-0.2); Basophils % (auto) 0.3 %; Eosinophils # (auto) 0.17 K/uL (0-0.5); Eosinophils % (auto) 1.4 %; Hematocrit (blood only) 28.1 % (37-47); Hemoglobin 8.8 g/dL (12.0-16.0); Immature Granulocytes # (auto) 0.09 K/uL (0.00-0.02); Immature Granulocytes % (auto) 0.7 %; Lymphocytes # (auto) 1.25 K/uL (1.2-3.4); Lymphocytes % (auto) 10.1 %; Mean Corpuscular Hemoglobin 33.2 pg (25-34); Mean Corpuscular Hgb Conc 31.3 g/dL (32-36); Monocytes % (auto) 8.1 %; Neutrophils # (auto) 9.84 K/uL (1.4-6.5); Neutrophils % (auto) 79.4 %; Platelet Count 514 K/uL (130-400); RDW Coefficient of Variation 14.7 % (11.5-14.5); RDW Standard Deviation 55.9 fL (36.4-46.3); Red Blood Count 2.65 M/uL (4.2-5.4); White Blood Count 12.39 K/uL (4.8-10.8)
[2020-11-28 09:59] LABS: BUN Creatinine Ratio 24.5 (10-20); Calcium 8.7 mg/dl (8.5-10.1); Creatinine Clr Calc Pharmacy 39.1 ml/min; Est GFR (African American) 53.6; Est GFR (Non-African American) 46.2; Potassium 3.5 mmol/L (3.5-5.1)
[2020-11-28] MEDS: metroNIDAZOLE 500 MG/100 ML BAG IV SCH (17:52)
[2020-11-28] MEDS: cefTRIAXone SODIUM 1,000 MG in DEXTROSE 5% 50 ML IV SCH (17:52)
[2020-11-29] MEDS: metroNIDAZOLE 500 MG/100 ML BAG IV SCH ×3 (00:26→17:12)
[2020-11-29 06:49] LABS: Hematocrit (blood only) 24.4 % (37-47); Mean Corpuscular Hemoglobin 33.8 pg (25-34); Mean Corpuscular Hgb Conc 32.8 g/dL (32-36); Platelet Count 431 K/uL (130-400); RDW Coefficient of Variation 14.9 % (11.5-14.5); RDW Standard Deviation 55.5 fL (36.4-46.3); Red Blood Count 2.37 M/uL (4.2-5.4); White Blood Count 10.27 K/uL (4.8-10.8)
[2020-11-29 07:23] LABS: BUN Creatinine Ratio 28.9 (10-20); Calcium 8.1 mg/dl (8.5-10.1); Creatinine Clr Calc Pharmacy 46.3 ml/min; Est GFR (African American) 64.6; Est GFR (Non-African American) 55.8; Potassium 3.7 mmol/L (3.5-5.1)
[2020-11-29] MEDS: CYANOCOBALAMIN 500 MCG TABLET (VITAMIN B-12) PO SCH (08:19)
[2020-11-29] MEDS: ENOXAPARIN INJ 40 MG/0.4 ML SYR SQ SCH (08:19)
[2020-11-29] MEDS: LOSARTAN POTASSIUM 50 MG TAB PO SCH (08:19)
[2020-11-29] MEDS ORDERED: ACETAMINOPHEN 325 MG TAB PO PRN (08:23)
--- NOTE | 2020-11-29 08:27 | Hospitalist Progress Note ---
Date of Service November 29, 2020 Assessment & Plan (1) Complicated UTI (urinary tract infection): Recent complete cystectomy with ureteral ileal conduit on 11/11/2020 Has been complaining of weakness with fever Noted to have UTI on UA examination Received ceftriaxone 2 g IV and will continue with 1 g daily Urine is growing pinpoint growth and re-incubating Blood cultures grew gram-negative bacilli, repeat ordered 11/28 to make sure blood is sterile +Leukocytosis-resolved (2) S/P ileal conduit: Recent complete hysterectomy with ureteral ileal conduit on 11/11/2020 Conduit site looks intact with clean urine (3) Bladder cancer: History of bladder cancer and is status post surgery as above Status post hysterectomy and pelvic lymphadenectomy on 11/11/2020 (4) Acute kidney injury superimposed on chronic kidney disease: History of CKD stage IIIb Has acute on chronic kidney disease Creatinine has been improving restarted losartan to control blood pressure (5) Hypertension: Will hold hydrochlorothiazide and DC lisinopril, no indication for HUMZA-I/ARB combo Losartan has been restarted (6) Generalized weakness: Likely secondary to recent complex surgery on 11/11/2020 PT and OT (7) Status post fall: Mechanical fall without any significant injury CT of the head and neck unremarkable Minor superficial injury left forehead and adjoining area of the eyebrow DVT prophylaxis Subcu Lovenox CODE STATUS Full Labs checked ROS-No Headache, No Visual Changes, No Nausea, No Vomiting, No Fever, No Chills, No Neck Pain or Stiffness, No Chest Pain, No Palpitations, No SOB, No SANCHES, No Cough, No Sputum, No Wheezing, No Abdominal Pain, No Diarrhea, No Hematemesis, No Hemoptysis, No Unexpected Weight Loss, No Flank pain, No Melena, No Hematochezia, No Frequency, No Urgency, No Burning, No Hematuria, No Rashes, No Diaphoresis. Appetite is Normal, +Pelvic Pain Physical Exam Gen-AAO x 3, NAD, Afebrile, tender pelvis when legs moved Head-NCAT, EOMI, PERRLA, Anicteric Sclera, No Posterior Pharyngeal Erythema Neck-Supple, No JVD, No Thyromegaly, No Masses, No LAD, No Bruits Lungs-Clear to Auscultation Bilaterally, No Rales, No Rhonchi, No Wheezing, No Crepitus Chest-No S4, +S1, +S2, No S3, No Murmurs, No Rubs, No Gallops, No Ectopy Abdomen-Soft, Bowel Sounds Present, Non Tender, Non Distended, No Hepatomegaly, No Splenomegaly, No Palpable Masses, No Rebound, No Rigidity, No Guarding Musculoskeletal-No CVAT Extremities-No Cyanosis, No Clubbing, No Edema Nuero-Cranial Nerves II-XII grossly intact, Motor WNL, DTRs WNL, Strength WNL, Non Focal Psych-Normal Mood Admission and Anticipated Discharge Date Admission Date: November 26, 2020 Results & Data Results & Data ([facility]) Vital Signs (Past 12 Hours) Vital Signs Temp Pulse Pulse Resp BP BP Pulse Ox 11/29/20 08:00 36.5 C 92 H 18 139/70 96 11/29/20 07:15 90 11/29/20 04:00 37.1 C 77 20 142/70 H 97 11/28/20 22:57 36.8 C 88 20 127/56 L 97 11/28/20 22:55 78
[2020-11-29] MEDS: MECLIZINE 12.5 MG TAB PO PRN (14:48)
[2020-11-29] MEDS: cefTRIAXone SODIUM 1,000 MG in DEXTROSE 5% 50 ML IV SCH (17:12)
[2020-11-29] MEDS ORDERED: VANCOMYCIN CONSULT ACTIVE PRN (17:35)
[2020-11-29] MEDS ORDERED: VANCOMYCIN HCL 1,750 MG in SODIUM CHLORIDE 0.9% 500 ML IV ONE (18:30)
--- NOTE | 2020-11-29 19:40 | Pharmacy Report ---
Pharmacy Abx Dose Short Note - Date of Service November 29, 2020 - Assessment & Plan Assessment 80 year old F ordered vancomycin for coag negative staph complicated UTI s/p cystectomy with ureteral ileal conduit on 11/11/2020. Patient is also on ceftriaxone and metronidazole with anaerobic gram negative bacilli in the blood. Plan Vancomycin * Loading dose: 1750 mg IV * Maintenance dose: 1250 mg IV (16 mg/kg) q18h * Goal trough level for 12 - 15 mcg/mL * Trough level will likely be ordered with the 3rd or 4th dose * Close monitoring of renal function due to advanced age and history of CKD Pharmacy will continue to follow and will adjust dose/frequency as necessary. Thank you.
[2020-11-30] MEDS: metroNIDAZOLE 500 MG/100 ML BAG IV SCH ×3 (00:27→16:56)
[2020-11-30] MEDS: LOSARTAN POTASSIUM 50 MG TAB PO SCH (08:02)
[2020-11-30] MEDS: ENOXAPARIN INJ 40 MG/0.4 ML SYR SQ SCH (08:02)
[2020-11-30] MEDS: CYANOCOBALAMIN 500 MCG TABLET (VITAMIN B-12) PO SCH (08:02)
[2020-11-30 08:06] LABS: Hematocrit (blood only) 26.8 % (37-47); Hemoglobin 8.6 g/dL (12.0-16.0); Mean Corpuscular Hemoglobin 33.6 pg (25-34); Mean Corpuscular Hgb Conc 32.1 g/dL (32-36); Mean Corpuscular Volume 104.7 fL (80-100); Mean Platelet Volume 9.8 fL (7.4-10.4); Platelet Count 445 K/uL (130-400); RDW Coefficient of Variation 14.9 % (11.5-14.5); RDW Standard Deviation 56.5 fL (36.4-46.3); Red Blood Count 2.56 M/uL (4.2-5.4); White Blood Count 10.48 K/uL (4.8-10.8)
[2020-11-30 08:44] LABS: Albumin Level 1.9 gm/dl (3.4-5.0); BUN Creatinine Ratio 23.5 (10-20); Calcium 8.6 mg/dl (8.5-10.1); Creatinine Clr Calc Pharmacy 44.3 ml/min; Est GFR (African American) 61.5; Est GFR (Non-African American) 53.1; Potassium 3.7 mmol/L (3.5-5.1)
[2020-11-30 08:47] LABS: Albumin Globulin Ratio 0.6 (0.9-2); Bilirubin,Total 0.2 mg/dl (0.2-1); Globulin 3.2 gm/dl (2.5-4.0); Total Protein 5.1 gm/dl (6.4-8.2)
[2020-11-30] MEDS: MECLIZINE 12.5 MG TAB PO PRN (09:22)
--- NOTE | 2020-11-30 09:43 | Hospitalist Progress Note ---
Date of Service November 30, 2020 Assessment & Plan (1) Complicated UTI (urinary tract infection): Recent complete cystectomy with ureteral ileal conduit on 11/11/2020 Has been complaining of weakness with fever Noted to have UTI on UA examination Received ceftriaxone 2 g IV and will continue with 1 g daily Urine is growing pinpoint growth and re-incubating Blood cultures grew gram-negative bacilli, repeat ordered 11/28 to make sure blood is sterile +Leukocytosis-resolved DC to [facility] on Doxy and Omnicef (2) S/P ileal conduit: Recent complete hysterectomy with ureteral ileal conduit on 11/11/2020 Conduit site looks intact with clean urine (3) Bladder cancer: History of bladder cancer and is status post surgery as above Status post hysterectomy and pelvic lymphadenectomy on 11/11/2020 (4) Acute kidney injury superimposed on chronic kidney disease: History of CKD stage IIIb Has acute on chronic kidney disease Creatinine has been improving restarted losartan to control blood pressure (5) Hypertension: Will hold hydrochlorothiazide and DC lisinopril, no indication for HUMZA-I/ARB combo Losartan has been restarted, Will add Norvasc (6) Generalized weakness: Likely secondary to recent complex surgery on 11/11/2020 PT and OT (7) Status post fall: Mechanical fall without any significant injury CT of the head and neck unremarkable Minor superficial injury left forehead and adjoining area of the eyebrow Vertigo-Antivert DVT prophylaxis Subcu Lovenox CODE STATUS Full DC to Acute rehab when bed available Labs checked ROS-No Headache, No Visual Changes, No Nausea, No Vomiting, No Fever, No Chills, No Neck Pain or Stiffness, No Chest Pain, No Palpitations, No SOB, No SANCHES, No Cough, No Sputum, No Wheezing, No Abdominal Pain, No Diarrhea, No Hematemesis, No Hemoptysis, No Unexpected Weight Loss, No Flank pain, No Melena, No Hematochezia, No Frequency, No Urgency, No Burning, No Hematuria, No Rashes, No Diaphoresis. Appetite is Normal, +Pelvic Pain Physical Exam Gen-AAO x 3, NAD, Afebrile, tender pelvis when legs moved Head-NCAT, EOMI, PERRLA, Anicteric Sclera, No Posterior Pharyngeal Erythema Neck-Supple, No JVD, No Thyromegaly, No Masses, No LAD, No Bruits Lungs-Clear to Auscultation Bilaterally, No Rales, No Rhonchi, No Wheezing, No Crepitus Chest-No S4, +S1, +S2, No S3, No Murmurs, No Rubs, No Gallops, No Ectopy Abdomen-Soft, Bowel Sounds Present, Non Tender, Non Distended, No Hepatomegaly, No Splenomegaly, No Palpable Masses, No Rebound, No Rigidity, No Guarding Musculoskeletal-No CVAT Extremities-No Cyanosis, No Clubbing, No Edema Nuero-Cranial Nerves II-XII grossly intact, Motor WNL, DTRs WNL, Strength WNL, Non Focal Psych-Normal Mood Admission and Anticipated Discharge Date Admission Date: November 26, 2020 Results & Data Results & Data ([facility]) Vital Signs (Past 12 Hours) Vital Signs Temp Pulse Pulse Resp BP Pulse Ox 11/30/20 07:22 36.8 C 84 16 148/68 H 97 11/30/20 03:56 36.5 C 86 18 144/64 H 98 11/29/20 23:18 36.9 C 79 20 132/65 97 11/29/20 23:06 73
[2020-11-30] MEDS: amLODIPine BESYLATE 5 MG TAB PO SCH (10:39)
[2020-11-30] MEDS: VANCOMYCIN HCL 1,250 MG in SODIUM CHLORIDE 0.9% 250 ML IV SCH (12:22)
[2020-11-30] MEDS: cefTRIAXone SODIUM 1,000 MG in DEXTROSE 5% 50 ML IV SCH (18:06)
[2020-12-01] MEDS: metroNIDAZOLE 500 MG/100 ML BAG IV SCH ×2 (00:54→09:40)
[2020-12-01] MEDS: VANCOMYCIN HCL 1,250 MG in SODIUM CHLORIDE 0.9% 250 ML IV SCH (05:25)
[2020-12-01 06:29] LABS: Hematocrit (blood only) 25.2 % (37-47); Hemoglobin 8.1 g/dL (12.0-16.0); Mean Corpuscular Hemoglobin 33.5 pg (25-34); Mean Corpuscular Hgb Conc 32.1 g/dL (32-36); Mean Corpuscular Volume 104.1 fL (80-100); Platelet Count 456 K/uL (130-400); RDW Coefficient of Variation 14.9 % (11.5-14.5); Red Blood Count 2.42 M/uL (4.2-5.4); White Blood Count 10.03 K/uL (4.8-10.8)
[2020-12-01 07:05] LABS: BUN Creatinine Ratio 23.9 (10-20); Calcium 8.1 mg/dl (8.5-10.1); Creatinine Clr Calc Pharmacy 42.1 ml/min; Est GFR (African American) 57.9; Potassium 3.8 mmol/L (3.5-5.1)
[2020-12-01] MEDS: CYANOCOBALAMIN 500 MCG TABLET (VITAMIN B-12) PO SCH (09:41)
[2020-12-01] MEDS: LOSARTAN POTASSIUM 50 MG TAB PO SCH (09:41)
[2020-12-01] MEDS: ENOXAPARIN INJ 40 MG/0.4 ML SYR SQ SCH (09:41)
[2020-12-01] MEDS: amLODIPine BESYLATE 5 MG TAB PO SCH (09:41)
--- NOTE | 2020-12-01 12:13 | Discharge Summary ---
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 No loss of consciousness. Apparently she has been complaining of extreme weakness and tiredness since after surgery and has been getting home PT and OT evaluation to get back her strength. She complains to have fever with occasional sweating at home. His drainage from the eye ileal conduit does not look that dirty. She denies any significant pain in the abdomen. She has bruising involving the left side of the forehead and adjoining left eyebrow but no other significant injury from the fall. She was noted to have UTI on UA examination and also clinically dry with acute on chronic kidney disease. She was admitted to medical telemetry unit for continuation of care Admission Exam Per Admitting Provider Physical Exam: Lying in bed with profound weakness but no apparent distress Constitutional: + ill appearing, average body habitus and + in distress Eyes: PERRL, conjunctivae normal, anicteric sclerae ENMT: external ear and nose normal, oropharynx normal Neck: trachea midline, no thyromegaly Respiratory: no respiratory distress Auscultation: lungs clear to auscultation bilaterally Cardiovascular: Rate/Rhythm: regular rate and regular rhythm Heart Sounds: no murmur Extremities: no edema Gastrointestinal (Abdomen): Inspection/Auscultation: normal bowel sounds; abdomen not distended Percussion/Palpation: + abdomen tender (Lower abdomen) and abdomen soft Musculoskeletal: No acute arthritis in any joint Neurologic: Alert, awake and oriented x3. Generally very weak and lethargic but moving all the limbs equally Psychiatric: A+Ox3, euthymic affect Lymphatic: no cervical or axillary lymphadenopathy Principal Diagnosis Complicated UTI (urinary tract infection): S/P ileal conduit: Bladder cancer: Acute kidney injury superimposed on chronic kidney disease: CKD stage IIIb Hypertension: Generalized weakness: Status post fall: Mechanical fall without any significant injury Vertigo Discharge Exam See Below Discharge Data Allergies Allergy/AdvReac Type Severity Reaction Status Date / Time ciprofloxacin [From Cipro] Allergy Mild Unknown Verified 11/26/20 17:43 levofloxacin [From Levaquin] Allergy Mild Unknown Verified 11/26/20 17:43 Penicillins Allergy Mild Unknown Unverified 11/26/20 17:43 Sulfa (Sulfonamide Allergy Mild Unknown Unverified 11/26/20 17:43 Antibiotics) SODIUM BRAVITOL Allergy Mild Unknown Uncoded 11/26/20 17:43 Consultations 11/26/20 18:13 ED Decision to Admit Stat Ordered Studies 11/26/20 15:12 CT cervical spine wo con Stat CT head/brain wo con Stat Current Diagnoses Malignant neoplasm of bladder, unspecified (11/26/20) Essential (primary) hypertension (11/26/20) Acute kidney failure, unspecified (11/26/20) Chronic kidney disease, unspecified (11/26/20) Urinary tract infection, site not specified (11/26/20) Weakness (11/26/20) History of falling (11/26/20) Other artificial openings of urinary tract status (11/26/20) Allergies ciprofloxacin [From Cipro] Allergy (Mild, Verified 11/26/20 17:43) Unknown levofloxacin [From Levaquin] Allergy (Mild, Verified 11/26/20 17:43) Unknown Penicillins Allergy (Mild, Unverified 11/26/20 17:43) Unknown Sulfa (Sulfonamide Antibiotics) Allergy (Mild, Unverified 11/26/20 17:43) Unknown SODIUM BRAVITOL Allergy (Mild, Uncoded 11/26/20 17:43) Unknown Height/Weight/Isolation Height 5 ft 4 in Weight 78 kg Chemistry 11/30/20 12/01/20 07:39 05:53 Sodium 143 142 Potassium 3.7 3.8 Chloride 111 H 112 H Carbon Dioxide 26 27 Anion Gap 5.0 3.0 BUN 23 H 25 H Creatinine 0.99 1.04 Glucose 98 95 Microbiology 11/26/20 16:15 Blood Aerobic Blood Culture - Preliminary No growth in Aerobic bottle after 48 hours. 11/26/20 16:15 Blood Anaerobic Blood Culture - Preliminary Bacteroides caccae 11/28/20 08:22 Blood Aerobic Blood Culture - Preliminary No growth in Aerobic bottle after 48 hours. 11/28/20 08:22 Blood Anaerobic Blood Culture - Preliminary No growth in Anaerobic bottle after 48 hours. 11/28/20 08:05 Blood Aerobic Blood Culture - Preliminary No growth in Aerobic bottle after 48 hours. 11/28/20 08:05 Blood Anaerobic Blood Culture - Preliminary No growth in Anaerobic bottle after 48 hours. 11/26/20 16:20 Blood Aerobic Blood Culture - Preliminary No growth in Aerobic bottle after 48 hours. 11/26/20 16:20 Blood Anaerobic Blood Culture - Preliminary Anaerobic gram negative [facility] Course (1) Complicated UTI (urinary tract infection): Recent complete cystectomy with ureteral ileal conduit on 11/11/2020 Has been complaining of weakness with fever Noted to have UTI on UA examination Received ceftriaxone 2 g IV and will continue with 1 g daily Urine is growing pinpoint growth and re-incubating Blood cultures grew gram-negative bacilli, repeat ordered 11/28 to make sure blood is sterile +Leukocytosis-resolved DC to [facility] today on Doxy and Omnicef (2) S/P ileal conduit: Recent complete hysterectomy with ureteral ileal conduit on 11/11/2020 Conduit site looks intact with clean urine (3) Bladder cancer: History of bladder cancer and is status post surgery as above Status post hysterectomy and pelvic lymphadenectomy on 11/11/2020 (4) Acute kidney injury superimposed on chronic kidney disease: History of CKD stage IIIb Has acute on chronic kidney disease Creatinine has been improving restarted losartan to control blood pressure (5) Hypertension: Will hold hydrochlorothiazide and DC lisinopril, no indication for HUMZA-I/ARB combo Losartan has been restarted, Will add Norvasc (6) Generalized weakness: Likely secondary to recent complex surgery on 11/11/2020 PT and OT (7) Status post fall: Mechanical fall without any significant injury CT of the head and neck unremarkable Minor superficial injury left forehead and adjoining area of the eyebrow Vertigo-Antivert DVT prophylaxis Subcu Lovenox CODE STATUS Full DC to [facility] Labs checked ROS-No Headache, No Visual Changes, No Nausea, No Vomiting, No Fever, No Chills, No Neck Pain or Stiffness, No Chest Pain, No Palpitations, No SOB, No SANCHES, No Cough, No Sputum, No Wheezing, No Abdominal Pain, No Diarrhea, No Hematemesis, No Hemoptysis, No Unexpected Weight Loss, No Flank pain, No Melena, No Hematochezia, No Frequency, No Urgency, No Burning, No Hematuria, No Rashes, No Diaphoresis. Appetite is Normal, +Pelvic Pain Physical Exam Gen-AAO x 3, NAD, Afebrile, tender pelvis when legs moved Head-NCAT, EOMI, PERRLA, Anicteric Sclera, No Posterior Pharyngeal Erythema Neck-Supple, No JVD, No Thyromegaly, No Masses, No LAD, No Bruits Lungs-Clear to Auscultation Bilaterally, No Rales, No Rhonchi, No Wheezing, No Crepitus Chest-No S4, +S1, +S2, No S3, No Murmurs, No Rubs, No Gallops, No Ectopy Abdomen-Soft, Bowel Sounds Present, Non Tender, Non Distended, No Hepatomegaly, No Splenomegaly, No Palpable Masses, No Rebound, No Rigidity, No Guarding Musculoskeletal-No CVAT Extremities-No Cyanosis, No Clubbing, No Edema Nuero-Cranial Nerves II-XII grossly intact, Motor WNL, DTRs WNL, Strength WNL, Non Focal Psych-Normal Mood Total Time Total Time Spent Total Time Spent (In Minutes): 45 mins Total Time Includes: Examination of the Patient, Discharge Planning, Medication Reconciliation and Communication With Other Providers Discharge Plan Discharge Items Patient Disposition: Transfer Inpatient Rehab Fac Reason For Visit: UTI, FALL GENERALIZED WEAKNESS Discharge Diagnosis: Complicated UTI (urinary tract infection): S/P ileal conduit: Bladder cancer: Acute kidney injury superimposed on chronic kidney disease: CKD stage IIIb Hypertension: Generalized weakness: Status post fall: Mechanical fall without any significant injury Vertigo Condition on Discharge: Good Health Concerns: Falls and Vertigo Activity: Per Instructions section Activity Comment: Activity c Supervision Lifting: Gradually increase as tolerated Bathing: No limitations Sexual Activity: When tolerated Weightbearing: Full weightbearing Non-emergency contact: Primary Care Provider Call non-emergency contact if: you have any medication questions Follow-up/Referrals: Gumaro Rivera DO [Primary Care Provider] - Diet: Regular Addtl Attending Provider Instructions: None Pending Studies at Discharge: No Stand-Alone Forms: My [facility] Skilled Items Patient informed of condition?: Yes DNR: No Discharge Level of Care: Acute rehab Communicable Disease: No Discharge Prognosis: Improving Lines: None Urinary Catheter: No Medications and DC Order Prescriptions: New acetaminophen 325 mg Tablet 650 mg PO Q4H PRN (Reason: fever or pain) Qty: 90 RF: 0 amlodipine [Norvasc] 5 mg Tablet 5 mg PO QAM Qty: 30 RF: 0 meclizine 12.5 mg Tablet 12.5 mg PO TID PRN (Reason: dizziness) Qty: 30 RF: 0 doxycycline monohydrate 100 mg capsule 100 mg PO BID 7 Days Qty: 14 RF: 0 cefdinir 300 mg capsule 300 mg PO Q12H 7 Days Qty: 14 RF: 0 Continued cyanocobalamin (vitamin B-12) [Vitamin B-12] 1,000 mcg Tablet 1,000 mcg PO DAILY RF: 0 hydrochlorothiazide 25 mg Tablet 25 mg PO DAILY RF: 0 losartan 100 mg Tablet 100 mg PO DAILY RF: 0 enoxaparin 40 mg/0.4 mL Syringe 40 mg SUBCUT DAILY RF: 0 Discharge Orders: Discharge Order (Routine); Ordered 12/01/20 Ordered By: Mirza Schmitt Admission Data Admit Date/Time: 11/26/20 18:49 Attending Provider: Mirza Schmitt Admit Provider: Sara Brown Primary Care Provider: Gumaro Rivera Other Providers: [facility] ; Sara Brown
[2020-12-02] MEDS ORDERED: VANCOMYCIN TROUGH ONE (17:30)
--- NOTE | 2020-12-03 16:35 | Coding Query ---
CODING QUERY To promote full compliance with coding requirements relating to patient care, provider participation is requested in all cases of bike shop manager uncertainty. Please assist us with the question(s) below: Coding Question(s): Patient s/o total cystectomy /ileal conduit surgery on 11/11. Presents with Complicated UTI and YAKELIN. UTI is documented as complicated . Please check below the phrase that describes Complicated UTI. Thanks for your help! JOSE DANIEL Dumont [facility] Physician's Response(s): The UTI is a complication of the recent cystectomy/ileal conduit surgery The UTI is not a complication of the recent cystectomy/ileal conduit surgery ____XX____ Cannot clinically correlate if the recent surgery is a complication or expected occurrence Other: Please document: Principal Diagnosis: "that condition established after study, to be chiefly responsible for occasioning the admission of the patient to the hospital for care." Co-Existing Principal Diagnosis: "when two or more diagnoses equally meet the criteria for principal diagnosis as determined by the circumstances of admission, diagnostic work up, and/or therapy provided, and the Alphabetic Index, Tabular List, or another coding guideline does not provide sequencing direction, any one of the diagnoses may be sequenced first." "When the physician has documented what appears to be a current diagnosis in the body of the record, but has not included the diagnosis in the final diagnostic statement, the physician should be asked whether the diagnosis should be added." (Source Coding [facility] 2 QTR90. p3-4) KATHY
== END 2020-12-01 15:53 | DRG 699 ==
LOC: ED 14:59 → 2N 18:49 → SUATTDRO 18:49 → 2N 19:31 → 3N 11-30 22:46

== ENCOUNTER 2021-06-07 10:21 | Inpatient (IN) ==
[2021-06-07 11:13] LABS: Basophils # (auto) 0.01 K/uL (0-0.2); Basophils % (auto) 0.1 %; Eosinophils # (auto) 0.01 K/uL (0-0.5); Eosinophils % (auto) 0.1 %; Hematocrit (blood only) 36.9 % (37-47); Hemoglobin 12.2 g/dL (12.0-16.0); Immature Granulocytes # (auto) 0.07 K/uL (0.00-0.02); Immature Granulocytes % (auto) 0.4 %; Lymphocytes # (auto) 0.93 K/uL (1.2-3.4); Lymphocytes % (auto) 5.5 %; Mean Corpuscular Hemoglobin 30.9 pg (25-34); Mean Corpuscular Hgb Conc 33.1 g/dL (32-36); Mean Corpuscular Volume 93.4 fL (80-100); Mean Platelet Volume 10.5 fL (7.4-10.4); Monocytes # (auto) 1.06 K/uL (0.11-0.59); Monocytes % (auto) 6.3 %; Neutrophils % (auto) 87.6 %; Platelet Count 401 K/uL (130-400); RDW Coefficient of Variation 14.4 % (11.5-14.5); RDW Standard Deviation 49.4 fL (36.4-46.3); Red Blood Count 3.95 M/uL (4.2-5.4); White Blood Count 16.88 K/uL (4.8-10.8)
[2021-06-07 11:42] LABS: Alanine Aminotransferase 106 U/L (12-78); Albumin Globulin Ratio 0.6 (0.9-2); Albumin Level 2.4 gm/dl (3.4-5.0); Alkaline Phosphatase 479 U/L (45-117); Aspartate Aminotransferase 133 U/L (15-37); BUN Creatinine Ratio 23.6 (10-20); Bilirubin,Total 1.3 mg/dl (0.2-1); Blood Urea Nitrogen 45 mg/dl (7-18); Carbon Dioxide 26 mmol/L (21-32); Chloride 103 mmol/L (98-107); Est GFR (African American) 27.8 ml/min; Globulin 3.8 gm/dl (2.5-4.0); Glucose 156 mg/dl (70-99); Lipase 99 U/L (73-393); Potassium 4.7 mmol/L (3.5-5.1); Sodium 136 mmol/L (136-145); Total Protein 6.2 gm/dl (6.4-8.2)
--- NOTE | 2021-06-07 11:45 | XRay Report ---
XR chest 1V portable HISTORY: 81 years-old Female SEPSIS acute sepsis COMPARISON: Chest radiograph 11/26/2020 TECHNIQUE: Portable AP view the chest FINDINGS: The cardiac silhouette appears normal. Mild asymmetric right hilar prominence may be projectional. Ri ght IJ Wqhmle-v-Lrfw catheter appears unchanged. Calcified plaque the thoracic aorta. Mild right jose diaphragmatic elevation. No pneumothorax, pleural effusion, airspace consolidation or overt pulmonary edema. Degenerative changes of the shoulders and spine. IMPRESSION: No acute process. ACT 112: Negative or not required by law. The above report was generated using voice recognition software. It may contain grammatical, syntax o r spelling errors. Electronically signed by: Brody Loya M.D. 06/07/2021 11:44 AM
[2021-06-07 11:53] LABS: INR 1.3 (0.9-1.1); Partial Thromboplastin Ratio 0.9; Partial Thromboplastin Time 22.9 Seconds (21.0-31.0)
[2021-06-07] MEDS: SODIUM CHLORIDE 0.9% 1000ML 1,000 ML IV SCH ×2 (11:53→21:26)
[2021-06-07 12:03] LABS: Magnesium 2.1 mg/dl (1.8-2.4); Troponin I < 0.015 ng/ml (0-0.045)
[2021-06-07 12:32] LABS: Influenza A virus by PCR Negative (Negative); Influenza B virus by PCR Negative (Negative)
--- NOTE | 2021-06-07 12:44 | CT Scan Report ---
CT head/brain wo con Clinical Indication: MN ^CTR RM C4 ^fever weakness nausea bladder ca . Technique: Contiguous axial CT images of the head were acquired from the base of the skull to the tami елена without intravenous contrast administration. Images were viewed in brain, subdural and bone windo ws. Automated dose lowering techniques and/or adjustment according to patient size were utilized for this exam. Comparison: None available at the time of this dictation. Findings: The ventricles, basal cisterns, and cerebral sulci are normal. There is no acute intracranial hemorrh age or evidence of acute territorial infarction. Neither mass effect, shift of the midline structures , nor abnormal extra-axial fluid collections are shown. An old lacunar infarct is seen in the left in ternal capsule. Imaged portions of the paranasal sinuses and mastoid air cells are clear. The orbits appear normal. There are no acute fractures of the calvaria or scalp swelling. Impression: No acute intracranial process, in particular no edema to suggest metastatic disease in this patient w ith history of bladder cancer. ACT 112: Negative or not required by law. Electronically signed by: Stew Ramsey M.D. 06/07/2021 12:42 PM
[2021-06-07 12:54] LABS: Appearance Urine Cloudy (Clear); Bacteria Urine Automated 4+ (Negative); Blood Urine 2+ (Negative); Epithelial Cell Urine Auto 0-5 /lpf (0-5); Glucose Urine UA Negative (Negative); Ketones Urine 1+ (Negative); Leukocyte Esterase Urine 2+ (Negative); Nitrite Urine Positive (Negative); Protein Urine 2+ (Negative); RBC Urine Automated >30 /hpf (0-4); Specific Gravity Urine 1.021 (1.000-1.030); Urobilinogen Urine Negative (Negative); WBC Urine Automated >30 /hpf (0-5)
[2021-06-07 12:55] LABS: Bilirubin Urine 1+ (Negative); Color Urine Amber
--- NOTE | 2021-06-07 12:58 | CT Scan Report ---
CT abd pelvis wo con CLINICAL INDICATION: Abdominal pain, nausea, fever, bladder cancer history. TECHNIQUE: Helical axial images of the abdomen and pelvis were obtained. Automated dose lowering tech niques and/or adjustment according to patient size were utilized for this exam. This exam was perfor med without intravenous contrast. COMPARISON: None available at the time of this dictation. FINDINGS: Lower chest: No acute abnormality Liver: Multiple hypodensities are seen in the liver compatible with cysts. Hepatomegaly is seen. Gallbladder and biliary tree: No calcified gallstones. Normal caliber wall. No intra- or extrahepatic biliary ductal dilation. Pancreas: Unremarkable, no focal lesions. Spleen: Unremarkable. Adrenals: Unremarkable. Kidneys and ureters: Unremarkable. Bladder: Patient is status post cystectomy with ileal conduit creation. Reproductive organs: Patient is status post hysterectomy. Bowel: A hiatal hernia is seen. Diverticulosis is seen without evidence of diverticulitis. The append ix is absent. Lymph nodes Retroperitoneal: Unremarkable. Mesenteric: Unremarkable. Pelvic: Unremarkable. Peritoneum: Normal Vessels: Atherosclerotic calcifications are seen. Abdominal wall: A fat-containing umbilical hernia is seen. Bones: Degenerative changes in the visualized spine. IMPRESSION: Status post cystectomy with ileal conduit formation. No evidence of recurrent or metastatic disease. ACT 112: Negative or not required by law. Electronically signed by: Stew Ramsey M.D. 06/07/2021 12:57 PM
[2021-06-07] MEDS ORDERED: cefTRIAXone SODIUM 1,000 MG/50 ML BAG IV STA (13:38)
--- NOTE | 2021-06-07 14:19 | History & Physical Report ---
Date of Service June 07, 2021 Assessment & Plan (1) Sepsis: (2) Complicated UTI (urinary tract infection): Plan: This is an 81yo F with a PMH of recurrent bladder cancer, metastasis to lung, cancer related pain, opioid induced, constipation, CKD III, HTN and other medical problems listed below who was sent from [facility] for further evaluation of subjective fevers, generalized weakness and was found to have sepsis 2/2 complicated UTI. Afebrile, BP stable, wbc 16.88k, procal 2.01, lactate 2.1 -> 1.9 UA grossly abnormal, started on empiric Rocephin which will be continued Follow urine, blood cultures CXR and CT abd/pelvis without acute changes or evidence of infection IV fluids (3) Acute kidney injury superimposed on chronic kidney disease: Plan: Cr 1.9 (baseline ~1 but trending upwards for past month) in setting of poor PO intake, recently started on Keytruda Urine studies pending Continue IV fluids Holding losartan Repeat renal labs tomorrow (4) Bladder cancer: Plan: Diagnosed in 2018 with recurrence S/p cystectomy with ureteroileal conduit at [facility] in November [address] Paul Galicia of medical oncology and Dr. Amrita Galicia for rad onc Started Keytruda 3 weeks ago and was scheduled for first palliative external beam radiation therapy to recurrent pelvic mass today Recently established with [facility] palliative care as well to readdress goals (see HPI) (5) Cancer related pain: Plan: Continue oxycodone 10mg Q4H PRN, adding lidocaine patch Family interested in medical marijuana - will discuss with OP palliative care Avoiding Tylenol given worsening transaminitis, nsaids given YAKELIN (6) Elevated LFTs: Plan: Up trending LFTs over the past month - patient inadvertently taking too much tylenol (1,000mg Q6H) but recently decreased to 500mg Q6H Today tbili 1.3, AST 133, ALT 106, alk phos 479 Keytruda possibly contributing ? Hold tylenol for now, trend CMP (7) Hypertension: Plan: BP currently 123/50 Continue Amlodipine, Toprol Holding losartan in setting of YAKELIN DVT Ppx: SQ heparin Code status: DNR/DNI PCP: Sherin Rivera Dispo: Admitted to PCU. Discharge planning ordered Patient seen in collaboration with Dr. Mcneil. Please see addendum. History of Present Illness Chief Complaint: subj fevers, weakness Primary Care Provider: Gumaro Rivera DO This is an 81yo F with a PMH of recurrent bladder cancer, metastasis to lung, cancer related pain, opioid induced, constipation, CKD III, HTN and other medical problems listed below who was sent from Cancer Center for further evaluation of subjective fevers, generalized weakness. Follows with Dr. Paul Galicia of medical oncology and Dr. Amrita Galicia for rad onc. Started Keytruda 3 weeks ago and was scheduled for first palliative external beam radiation therapy to recu rrent pelvic mass today but was feeling poorly and was sent over by Cancer center for further evaluation in ED. Has been feeling progressively more weak and fatigued over the past 2 weeks. Ongoing pelvic pain. Denies any fever or chills. No headache, lightheadedness, chest pain, SOB, nausea, vomiting, abdominal pain. Poor appetite over the past 3 weeks with decreased PO intake. Issues with constipation on opioids. Adjusted bowel regimen in past few weeks. Recently established with outpatient [facility] palliative care to better address goals of addressing pain and improving quality of life. Is a DNR/DNI but agreeable to IV antibiotics. Allergies Allergy/AdvReac Type Severity Reaction Status Date / Time ciprofloxacin [From Cipro] Allergy Mild Unknown Verified 06/07/21 11:48 levofloxacin [From Levaquin] Allergy Mild Unknown Verified 06/07/21 11:48 methohexital [From Brevital] Allergy Mild Unknown Verified 06/09/21 20:57 Penicillins Allergy Mild Unknown Unverified 06/07/21 11:48 Sulfa (Sulfonamide Allergy Mild Unknown Unverified 06/07/21 11:48 Antibiotics) Home Medications Medication Instructions Recorded Confirmed Type cyanocobalamin (vitamin B-12) 1,000 mcg PO HS 11/26/20 06/07/21 History 1,000 mcg tablet (Vitamin B-12) losartan 100 mg tablet 100 mg PO HS 11/26/20 06/07/21 History metoprolol succinate 25 mg 25 mg PO HS tab 05/28/21 06/07/21 History tablet,extended release 24 hr oxycodone 10 mg tablet 10 mg PO Q4H PRN 05/28/21 06/07/21 History acetaminophen 500 mg tablet 500 mg PO Q6H PRN 06/07/21 06/07/21 History (Tylenol Extra Strength) amlodipine 5 mg tablet (Norvasc) 5 mg PO HS 06/07/21 06/07/21 History ondansetron HCl 8 mg tablet 8 mg PO Q8H PRN 06/07/21 06/07/21 History pantoprazole 20 mg tablet,delayed 20 mg PO DAILY 06/07/21 06/07/21 History release polyethylene glycol 3350 17 17 g PO DAILY 06/07/21 06/07/21 History gram/dose oral powder (Miralax) sennosides 8.6 mg tablet (senna) 8.6 mg PO BID 06/07/21 06/07/21 History Past Med/Surg History Medical History Bladder cancer (~02/2018) CKD (chronic kidney disease), stage III Generalized weakness Hiatal hernia s/p Repair History of chemotherapy 07/21/2020 - 10/07/2020 - Gemcitabine + Carboplatin Local BCG + Mitomycin BCG (Intravescial) Planning - Keytruda q 21 days (with Dr. Alfie Galicia) Hypertension Port-A-Cath in place Retinal lesion "treat localized" Surgical History History of cataract extraction History of laparoscopic appendectomy History of repair of hiatal hernia (2016) History of tonsillectomy and adenoidectomy History of total hysterectomy with bilateral salpingo-oophorectomy (BSO) () History of transurethral destruction of bladder lesion x 5 S/P ileal conduit (11/11/20) Family History Mother , Passed age 89 of "brain bleeding" complications No problems noted. Father , Passed age 86 of natural causes Prostate cancer, Onset Age: 55 Radiation - did well after Brother , Passed age 4 of Hydrocephalus No problems noted. Brother , Passed age 21 of drug overdose No problems noted. Sister Breast cancer, Onset Age: 56 Son No problems noted. Daughter No problems noted. 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 Physical Exam Physical Exam: General Appearance: WD/WN, vitals as above, NAD, sitting up in bed, pleasant, conversing easily Head: normocephalic, atraumatic Eyes: normal inspection, PERRL, conjunctivae normal, anicteric sclerae ENT: external ear and nose normal, oropharynx normal Neck: normal visual inspection, trachea midline, no thyromegaly Respiratory: normal respiratory effort, lungs clear to auscultation, no wheeze, rales, rhonchi. No accessory muscle use Cardiovascular: regular rate, rhythm, no murmur, normal peripheral pulses, no BLE edema. Vessels: no JVD Chest: normal inspection of chest Abdomen/GI: normal bowel sounds, soft, nontender, no hepatosplenomegaly : +Ileal conduit opening RLQ Extremities/Musculoskeletal: no cyanosis or clubbing, extremities motor strength 5/5 Neurologic: PERRL, EOMI, accommodation nl, no face palsy, no dysarthria, CN's II-XI intact bilaterally and moves all extremities Psychiatric: A+Ox3, euthymic affect Skin: no rashes, normal color, warm/dry Results & Data Results & Data ([facility]) Vital Signs (Past 12 Hours) Vital Signs Temp Pulse Resp BP Pulse Ox 06/07/21 13:05 67 21 123/50 L 06/07/21 10:26 36.1 C L 65 16 104/53 L 95 Laboratory Results Short CBC 06/07/21 Range/Units 11:05 WBC 16.88 H (4.8-10.8) K/uL Hgb 12.2 (12.0-16.0) g/dL Hct 36.9 L (37-47) % Plt Count 401 H (130-400) K/uL BMP 06/07/21 11:05 Sodium 136 Potassium 4.7 Chloride 103 Carbon Dioxide 26 BUN 45 H Creatinine 1.90 H Glucose 156 H Calcium 10.0 Cardiac Enzymes 06/07/21 Range/Units 11:06 Troponin I < 0.015 (0-0.045) ng/ml Liver Function 06/07/21 Range/Units 11:05 Total Bilirubin 1.3 H (0.2-1) mg/dl AST 133 H (15-37) U/L ALT 106 H (12-78) U/L Alkaline Phosphatase 479 H (45-117) U/L Albumin 2.4 L (3.4-5.0) gm/dl Urine 06/07/21 Range/Units Unknown Urine Color Radha Urine Appearance Cloudy A (Clear) Urine pH 6.0 (4.5-7.5) Ur Specific [place] 1.021 (1.000-1.030) Urine Protein 2+ H (Negative) Urine Glucose (UA) Negative (Negative) Diagnostic Findings Chest X-Ray 06/07/21 11:18 XR chest 1V portable HISTORY: 81 years-old Female SEPSIS acute sepsis COMPARISON: Chest radiograph 11/26/2020 TECHNIQUE: Portable AP view the chest FINDINGS: The cardiac silhouette appears normal. Mild asymmetric right hilar prominence may be projectional. Right IJ Eofezw-v-Gtio catheter appears unchanged. Calcified plaque the thoracic aorta. Mild right hemidiaphragmatic elevation. No pneumothorax, pleural effusion, airspace consolidation or overt pulmonary edema. Degenerative changes of the shoulders and spine. IMPRESSION: No acute process. ACT 112: Negative or not required by law. The above report was generated using voice recognition software. It may contain grammatical, syntax or spelling errors. Electronically signed by: Brody Loya M.D. 06/07/2021 11:[address] 06/07/21 11:19 CT head/brain wo con Clinical Indication: MN ^CTR RM C4 ^fever weakness nausea bladder ca . Technique: Contiguous axial CT images of the head were acquired from the base of the skull to the vertex without intravenous contrast administration. Images were viewed in brain, subdural and bone windows. Automated dose lowering techniques and/or adjustment according to patient size were utilized for this exam. Comparison: None available at the time of this dictation. Findings: The ventricles, basal cisterns, and cerebral sulci are normal. There is no acute intracranial hemorrhage or evidence of acute territorial infarction. Neither mass effect, shift of the midline structures, nor abnormal extra-axial fluid collections are shown. 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 Imaged portions of the paranasal sinuses and mastoid air cells are clear. The orbits appear normal. There are no acute fractures of the calvaria or scalp swelling. Impression: No acute intracranial process, in particular no edema to suggest metastatic disease in this patient with history of bladder cancer. ACT 112: Negative or not required by law. Electronically signed by: Stew Ramsey M.D. 06/07/2021 12:42 PM Abdomen/Pelvis CT 06/07/21 11:49 CT abd pelvis wo con CLINICAL INDICATION: Abdominal pain, nausea, fever, bladder cancer history. TECHNIQUE: Helical axial images of the abdomen and pelvis were obtained. Automated dose lowering techniques and/or adjustment according to patient size were utilized for this exam. This exam was performed without intravenous contrast. COMPARISON: None available at the time of this dictation. FINDINGS: Lower chest: No acute abnormality Liver: Multiple hypodensities are seen in the liver compatible with cysts. Hepatomegaly is seen. Gallbladder and biliary tree: No calcified gallstones. Normal caliber wall. No intra- or extrahepatic biliary ductal dilation. Pancreas: Unremarkable, no focal lesions. Spleen: Unremarkable. Adrenals: Unremarkable. Kidneys and ureters: Unremarkable. Bladder: Patient is status post cystectomy with ileal conduit creation. Reproductive organs: Patient is status post hysterectomy. Bowel: A hiatal hernia is seen. Diverticulosis is seen without evidence of diverticulitis. The appendix is absent. Lymph nodes Retroperitoneal: Unremarkable. Mesenteric: Unremarkable. Pelvic: Unremarkable. Peritoneum: Normal Vessels: Atherosclerotic calcifications are seen. Abdominal wall: A fat-containing umbilical hernia is seen. Bones: Degenerative changes in the visualized spine. IMPRESSION: Status post cystectomy with ileal conduit formation. No evidence of recurrent or metastatic disease. ACT 112: Negative or not required by law. Electronically signed by: Stew Ramsey M.D. 06/07/2021 12:57 PM Code Status & VTE Plan VTE Prophylaxis Plan VTE Prophylaxis will be ordered: Yes Supervising Physician Co-Signing Physician Notes Pt seen and examined by me, care coordinated with Kelley Charles PA-C, pls refer to her note above for further detail. Pt is an 81yo F with hx of recurrent bladder cancer, metastasis to lung, cancer related pain, opioid induced, constipation, CKD III, HTN who was sent from [facility] for further evaluation of subjective fevers, generalized weakness. Follows with Dr. Paul Galicia of medical oncology and Dr. Amrita Galicia for rad onc. Started Keytruda 3 weeks ago and was scheduled for first palliative external beam radiation therapy to recurrent pelvic mass today but was feeling poorly and was sent to ED. Currently pt is laying in bed in NAD. She is alert oriented, answering most questions appropriately. Appears tired though, and chronically ill. Lungs are clear to auscultation, heart sounds regular, abdomen soft, only mildly tender at suprapubic area, no notable distention. No LE edema, moves extremities. Skin is warm and dry. Continue Rocephin for now and follow cultures. Cont. to closely monitor hemodynamic status. Nohemi Mcneil MD
--- NOTE | 2021-06-07 14:36 | Electrocardiogram Report ---
Test Reason : Blood Pressure : / mmHG Vent. Rate : 067 BPM Atrial Rate : 067 BPM P-R Int : 140 ms QRS Dur : 090 ms QT Int : 434 ms P-R-T Axes : 068 018 012 degrees QTc Int : 458 ms Normal sinus rhythm RSR' or QR pattern in V1 suggests right ventricular conduction delay Borderline ECG When compared with ECG of 26-NOV-2020 16:14, No significant change was found Confirmed by Bennett Reyes ([id number]) on 06/07/2021 2:36:26 PM Referred By: Confirmed By:Ghassan Reyes
[2021-06-07] MEDS: oxyCODONE HCL IR 5 MG TAB (IMMEDIATE RELEASE) PO PRN ×2 (17:14→21:24)
--- NOTE | 2021-06-07 19:34 | Emergency Department Note ---
History of Present Illness General Chief complaint: Weakness Stated complaint: FATIGUE,WEAKNESS,NAUSEA,RECTAL PAIN Time Seen by Provider: 06/07/21 11:05 History of Present Illness Provider complaint: Nausea fever weakness Onset (ago): day(s) 2 Maximum Pain Intensity: 6 Associated symptoms: + fever/chills, + nausea/vomiting and + weakness; no chest pain, no cough, no headaches or no shortness of breath 81-year-old female with history of bladder cancer presents emergency department for nausea, weakness, and subjective fevers. Patient states she was sent from the cancer center for concern for sepsis. Patient states she has vomited many times over the last day. She reports no hematemesis coffee-ground emesis or bilious vomiting. Home Medications Medication Instructions Recorded Confirmed Type cyanocobalamin (vitamin B-12) 1,000 mcg PO HS 11/26/20 06/07/21 History 1,000 mcg tablet (Vitamin B-12) losartan 100 mg tablet 100 mg PO HS 11/26/20 06/07/21 History metoprolol succinate 25 mg 25 mg PO HS tab 05/28/21 06/07/21 History tablet,extended release 24 hr oxycodone 10 mg tablet 10 mg PO Q4H PRN 05/28/21 06/07/21 History acetaminophen 500 mg tablet 500 mg PO Q6H PRN 06/07/21 06/07/21 History (Tylenol Extra Strength) amlodipine 5 mg tablet (Norvasc) 5 mg PO HS 06/07/21 06/07/21 History ondansetron HCl 8 mg tablet 8 mg PO Q8H PRN 06/07/21 06/07/21 History pantoprazole 20 mg tablet,delayed 20 mg PO DAILY 06/07/21 06/07/21 History release polyethylene glycol 3350 17 17 g PO DAILY 06/07/21 06/07/21 History gram/dose oral powder (Miralax) sennosides 8.6 mg tablet (senna) 8.6 mg PO BID 06/07/21 06/07/21 History Allergies Allergy/AdvReac Type Severity Reaction Status Date / Time ciprofloxacin [From Cipro] Allergy Mild Unknown Verified 06/07/21 11:48 levofloxacin [From Levaquin] Allergy Mild Unknown Verified 06/07/21 11:48 Penicillins Allergy Mild Unknown Unverified 06/07/21 11:48 Sulfa (Sulfonamide Allergy Mild Unknown Unverified 06/07/21 11:48 Antibiotics) SODIUM BRAVITOL Allergy Mild Unknown Uncoded 06/07/21 11:48 Past Med/Surg History Medical History Bladder cancer (~02/2018) CKD (chronic kidney disease), stage III Generalized weakness Hiatal hernia s/p Repair History of chemotherapy 07/21/2020 - 10/07/2020 - Gemcitabine + Carboplatin Local BCG + Mitomycin BCG (Intravescial) Planning - Keytruda q 21 days (with Dr. Alfie Galicia) Hypertension Port-A-Cath in place Retinal lesion "treat localized" Surgical History History of cataract extraction History of laparoscopic appendectomy History of repair of hiatal hernia (2016) History of tonsillectomy and adenoidectomy History of total hysterectomy with bilateral salpingo-oophorectomy (BSO) (11/11/20) History of transurethral destruction of bladder lesion x 5 S/P ileal conduit (11/11/20) Family History Mother , Passed age 89 of "brain bleeding" complications No problems noted. Father , Passed age 86 of natural causes Prostate cancer, Onset Age: 55 Radiation - did well after Brother , Passed age 4 of Hydrocephalus No problems noted. Brother , Passed age 21 of drug overdose No problems noted. Sister Breast cancer, Onset Age: 56 Son No problems noted. Daughter No problems noted. 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 Feels Safe at Home: Yes Childhood Exposure to Second-Hand Smoke: Yes caffeine: Yes (1 cup of coffee/day ) during the past year weight has: decreased > 10 lbs Dental Care, Regularly: Yes Assistive Devices: None Review of Systems A total of 10 systems reviewed and were otherwise negative Physical Exam Vital Signs Vital Signs - 24 hr 06/07/21 10:26 06/07/21 13:05 06/07/21 14:00 Temperature 36.1 C L Temperature Source Temporal Artery Scan Pulse Rate 65 67 70 Respiratory Rate 16 21 20 Blood Pressure 104/53 L 123/50 L 126/52 L Blood Pressure Mean 70 74 76 Pulse Oximetry 95 Oxygen Delivery Method Room Air Sepsis Recent Fever Within 48 Hours No Sepsis New/Unexplained Change in Mental Status No Sepsis Action Taken by Nursing No Action Required 06/07/21 15:00 06/07/21 17:00 06/07/21 18:00 Temperature Temperature Source Pulse Rate 70 78 76 Respiratory Rate 18 22 16 Blood Pressure 133/54 L 108/47 L 128/55 L Blood Pressure Mean 80 67 79 Pulse Oximetry Oxygen Delivery Method Sepsis Recent Fever Within 48 Hours Sepsis New/Unexplained Change in Mental Status Sepsis Action Taken by Nursing Physical Exam GENERAL: She is oriented to person, place, and time. She appears well-developed and well-nourished. She does not appear distressed. HENT: Exam performed. -Head: Normocephalic and atraumatic. -Right Ear: External ear normal. No mastoid tenderness. -Left Ear: External ear normal. No mastoid tenderness. -Mouth/Throat: The oropharynx is clear and moist. No trismus in the jaw. No dental abscesses or uvula swelling. No oropharyngeal exudate or tonsillar abscesses. EYES: Conjunctivae and EOM are normal. Pupils are equal, round, and reactive to light. Right eye exhibits no discharge. Left eye exhibits no discharge. No scleral icterus. NECK: Normal range of motion. Neck supple. No JVD present. No spinous process tenderness present. No carotid bruit present. No rigidity. No tracheal deviation and normal range of motion present. No Brudzinski's sign and no Kernig's sign noted. CV: Normal rate, regular rhythm, normal heart sounds and intact distal pulses. There is no peripheral edema. Palpable radial pulses bue. PULM/CHEST: Effort normal and breath sounds normal. No respiratory distress. No stridor. She has no wheezes. She has no rales. -Chest Wall: She exhibits no tenderness. ABD: The abdomen is soft. Colostomy bag present. Bowel sounds are normal. She has no distension. No mass is present. There is no tenderness. There is no rebound, no guarding, no Contreras's sign and no tenderness at McBurney's point. Rovsig negative MUSC/SKEL: Normal range of motion. There is no peripheral edema, tenderness or deformity. LYMPH: No cervical adenopathy. NEURO: She is alert and oriented to person, place, and time. She has normal strength. No cranial nerve deficit or sensory deficit. Coordination and gait normal. GCS eye subscore is 4. GCS verbal subscore is 5. GCS motor subscore is 6. Cerebellar tests wnl. SKIN: Skin is warm and dry. She is not diaphoretic. PSYCH: She has a normal mood and affect. Behavior is normal. Judgment and thought content normal. Course Course 1105: The patient was evaluated in room C4. A complete history and physical exam was performed Cardiac monitoring: An order was placed for continuous cardiac monitoring. The monitor shows a rate of 70 with sinus rhythm 1345: Vital signs stable. Labs show leukocytosis of 16.8. Lactic acid elevated 2.1. Urinalysis concerning for UTI. Procalcitonin is elevated. Patient treated with Rocephin. Creatinine up to 1.9 from baseline of around 1. [facility]. Administered Medications Sodium Chloride (Nss 1000ml) 1,000 mls @ 100 mls/hr IV .Q10H [facility] Stop: 07/07/21 11:29 Last Admin: 06/07/21 11:53 Dose: 125 mls/hr Documented by: [id number] Oxycodone HCl (Oxycodone Hcl Ir 5 Mg Tab (Immediate Release)) 10 mg PO Q4H PRN PRN Reason: Pain Stop: 06/21/21 16:41 Last Admin: 06/07/21 17:14 Dose: 10 mg Documented by: [id number] Discontinued Medications Ceftriaxone Sodium (Rocephin) 1,000 mg in 50 mls @ 100 mls/hr IV NOW STA Stop: 06/07/21 14:07 Last Infusion: 06/07/21 14:40 Dose: 0 mls/hr Documented by: [id number] Admin: 06/07/21 14:04 Dose: 100 mls/hr Documented by: [id number] Medical Decision Making Laboratory Data Result diagrams: 06/07/21 11:05 06/07/21 11:05 Lab Results 06/07/21 06/07/21 06/07/21 Range/Units 11:05 11:05 11:06 WBC 16.88 H (4.8-10.8) K/uL RBC 3.95 L (4.2-5.4) M/uL Hgb 12.2 (12.0-16.0) g/dL Hct 36.9 L (37-47) % MCV 93.4 (80-100) fL MCH 30.9 (25-34) pg MCHC 33.1 (32-36) g/dL RDW Std Deviation 49.4 H (36.4-46.3) fL RDW Coeff of [place] 14.4 (11.5-14.5) % Plt Count 401 H (130-400) K/uL MPV 10.5 H (7.4-10.4) fL Immature Gran % (Auto) 0.4 % Neut % (Auto) 87.6 % Lymph % (Auto) 5.5 % [place] % (Auto) 6.3 % Eos % (Auto) 0.1 % Baso % (Auto) 0.1 % Neut # (Auto) 14.80 H (1.4-6.5) K/uL Lymph # (Auto) 0.93 L (1.2-3.4) K/uL [place] # (Auto) 1.06 H (0.11-0.59) K/uL Eos # (Auto) 0.01 (0-0.5) K/uL Baso # (Auto) 0.01 (0-0.2) K/uL Immature Gran # (Auto) 0.07 H (0.00-0.02) K/uL PT 13.0 H (9.0-12.0) Seconds INR 1.3 H (0.9-1.1) APTT 22.9 (21.0-31.0) Seconds PTT Ratio 0.9 Sodium 136 (136-145) mmol/L Potassium 4.7 (3.5-5.1) mmol/L Chloride 103 (98-107) mmol/L Carbon Dioxide 26 (21-32) mmol/L Anion Gap 7.0 (3-11) BUN 45 H (7-18) mg/dl Creatinine 1.90 H (0.6-1.2) mg/dl Est Cr Clr Drug Dosing Not Reportable Est GFR ( Amer) 27.8 ml/min Est GFR (Non-Af Amer) 24.0 ml/min BUN/Creatinine Ratio 23.6 H (10-20) Glucose 156 H (70-99) mg/dl Lactate (0.4-2.0) mmol/L Calcium 10.0 (8.5-10.1) mg/dl Magnesium (1.8-2.4) mg/dl Total Bilirubin 1.3 H (0.2-1) mg/dl AST 133 H (15-37) U/L ALT 106 H (12-78) U/L Alkaline Phosphatase 479 H (45-117) U/L Troponin I (0-0.045) ng/ml Total Protein 6.2 L (6.4-8.2) gm/dl Albumin 2.4 L (3.4-5.0) gm/dl Globulin 3.8 (2.5-4.0) gm/dl Albumin/Globulin Ratio 0.6 L (0.9-2) Lipase 99 (73-393) U/L Procalcitonin Specimen Hemolysis Urine Color Urine Appearance (Clear) Urine pH (4.5-7.5) Ur Specific [place] (1.000-1.030) Urine Protein (Negative) Urine Glucose (UA) (Negative) Urine Ketones (Negative) Urine Blood (Negative) Urine Nitrite (Negative) Urine Bilirubin (Negative) Urine Urobilinogen (Negative) Ur Leukocyte Esterase (Negative) Urine WBC (Auto) (0-5) /hpf Urine RBC (Auto) (0-4) /hpf U Hyaline Cast (Auto) (0-5) /lpf U Epithel Cells (Auto) (0-5) /lpf Urine Bacteria (Auto) (Negative) COVID-19 Eval Order SARS-CoV-2 (PCR) (Negative) Influ A Molecular Assay (Negative) Influ B Molecular Assay (Negative) 06/07/21 06/07/21 06/07/21 Range/Units 11:06 11:06 11:15 WBC (4.8-10.8) K/uL RBC (4.2-5.4) M/uL Hgb (12.0-16.0) g/dL Hct (37-47) % MCV (80-100) fL MCH (25-34) pg MCHC (32-36) g/dL RDW Std Deviation (36.4-46.3) fL RDW Coeff of [place] (11.5-14.5) % Plt Count (130-400) K/uL MPV (7.4-10.4) fL Immature Gran % (Auto) % Neut % (Auto) % Lymph % (Auto) % [place] % (Auto) % Eos % (Auto) % Baso % (Auto) % Neut # (Auto) (1.4-6.5) K/uL Lymph # (Auto) (1.2-3.4) K/uL [place] # (Auto) (0.11-0.59) K/uL Eos # (Auto) (0-0.5) K/uL Baso # (Auto) (0-0.2) K/uL Immature Gran # (Auto) (0.00-0.02) K/uL PT (9.0-12.0) Seconds INR (0.9-1.1) APTT (21.0-31.0) Seconds PTT Ratio Sodium (136-145) mmol/L Potassium (3.5-5.1) mmol/L Chloride (98-107) mmol/L Carbon Dioxide (21-32) mmol/L Anion Gap (3-11) BUN (7-18) mg/dl Creatinine (0.6-1.2) mg/dl Est Cr Clr Drug Dosing Est GFR ( Amer) ml/min Est GFR (Non-Af Amer) ml/min BUN/Creatinine Ratio (10-20) Glucose (70-99) mg/dl Lactate (0.4-2.0) mmol/L Calcium (8.5-10.1) mg/dl Magnesium 2.1 (1.8-2.4) mg/dl Total Bilirubin (0.2-1) mg/dl AST (15-37) U/L ALT (12-78) U/L Alkaline Phosphatase (45-117) U/L Troponin I < 0.015 (0-0.045) ng/ml Total Protein (6.4-8.2) gm/dl Albumin (3.4-5.0) gm/dl Globulin (2.5-4.0) gm/dl Albumin/Globulin Ratio (0.9-2) Lipase (73-393) U/L Procalcitonin Cancelled Specimen Hemolysis Urine Color Urine Appearance (Clear) Urine pH (4.5-7.5) Ur Specific [place] (1.000-1.030) Urine Protein (Negative) Urine Glucose (UA) (Negative) Urine Ketones (Negative) Urine Blood (Negative) Urine Nitrite (Negative) Urine Bilirubin (Negative) Urine Urobilinogen (Negative) Ur Leukocyte Esterase (Negative) Urine WBC (Auto) (0-5) /hpf Urine RBC (Auto) (0-4) /hpf U Hyaline Cast (Auto) (0-5) /lpf U Epithel Cells (Auto) (0-5) /lpf Urine Bacteria (Auto) (Negative) COVID-19 Eval Order SARS-CoV-2 (PCR) (Negative) Influ A Molecular Assay Negative (Negative) Influ B Molecular Assay Negative (Negative) 06/07/21 06/07/21 06/07/21 Range/Units 11:15 11:15 11:46 WBC (4.8-10.8) K/uL RBC (4.2-5.4) M/uL Hgb (12.0-16.0) g/dL Hct (37-47) % MCV (80-100) fL MCH (25-34) pg MCHC (32-36) g/dL RDW Std Deviation (36.4-46.3) fL RDW Coeff of [place] (11.5-14.5) % Plt Count (130-400) K/uL MPV (7.4-10.4) fL Immature Gran % (Auto) % Neut % (Auto) % Lymph % (Auto) % [place] % (Auto) % Eos % (Auto) % Baso % (Auto) % Neut # (Auto) (1.4-6.5) K/uL Lymph # (Auto) (1.2-3.4) K/uL [place] # (Auto) (0.11-0.59) K/uL Eos # (Auto) (0-0.5) K/uL Baso # (Auto) (0-0.2) K/uL Immature Gran # (Auto) (0.00-0.02) K/uL PT (9.0-12.0) Seconds INR (0.9-1.1) APTT (21.0-31.0) Seconds PTT Ratio Sodium (136-145) mmol/L Potassium (3.5-5.1) mmol/L Chloride (98-107) mmol/L Carbon Dioxide (21-32) mmol/L Anion Gap (3-11) BUN (7-18) mg/dl Creatinine (0.6-1.2) mg/dl Est Cr Clr Drug Dosing Est GFR ( Amer) ml/min Est GFR (Non-Af Amer) ml/min BUN/Creatinine Ratio (10-20) Glucose (70-99) mg/dl Lactate 2.1 H* (0.4-2.0) mmol/L Calcium (8.5-10.1) mg/dl Magnesium (1.8-2.4) mg/dl Total Bilirubin (0.2-1) mg/dl AST (15-37) U/L ALT (12-78) U/L Alkaline Phosphatase (45-117) U/L Troponin I (0-0.045) ng/ml Total Protein (6.4-8.2) gm/dl Albumin (3.4-5.0) gm/dl Globulin (2.5-4.0) gm/dl Albumin/Globulin Ratio (0.9-2) Lipase (73-393) U/L Procalcitonin Specimen Hemolysis Urine Color Urine Appearance (Clear) Urine pH (4.5-7.5) Ur Specific [place] (1.000-1.030) Urine Protein (Negative) Urine Glucose (UA) (Negative) Urine Ketones (Negative) Urine Blood (Negative) Urine Nitrite (Negative) Urine Bilirubin (Negative) Urine Urobilinogen (Negative) Ur Leukocyte Esterase (Negative) Urine WBC (Auto) (0-5) /hpf Urine RBC (Auto) (0-4) /hpf U Hyaline Cast (Auto) (0-5) /lpf U Epithel Cells (Auto) (0-5) /lpf Urine Bacteria (Auto) (Negative) COVID-19 Eval Order Covid19 at [facility] SARS-CoV-2 (PCR) NEGATIVE (Negative) Influ A Molecular Assay (Negative) Influ B Molecular Assay (Negative) 06/07/21 06/07/21 06/07/21 Range/Units 12:47 14:22 Unknown WBC (4.8-10.8) K/uL RBC (4.2-5.4) M/uL Hgb (12.0-16.0) g/dL Hct (37-47) % MCV (80-100) fL MCH (25-34) pg MCHC (32-36) g/dL RDW Std Deviation (36.4-46.3) fL RDW Coeff of [place] (11.5-14.5) % Plt Count (130-400) K/uL MPV (7.4-10.4) fL Immature Gran % (Auto) % Neut % (Auto) % Lymph % (Auto) % [place] % (Auto) % Eos % (Auto) % Baso % (Auto) % Neut # (Auto) (1.4-6.5) K/uL Lymph # (Auto) (1.2-3.4) K/uL [place] # (Auto) (0.11-0.59) K/uL Eos # (Auto) (0-0.5) K/uL Baso # (Auto) (0-0.2) K/uL Immature Gran # (Auto) (0.00-0.02) K/uL PT (9.0-12.0) Seconds INR (0.9-1.1) APTT (21.0-31.0) Seconds PTT Ratio Sodium (136-145) mmol/L Potassium (3.5-5.1) mmol/L Chloride (98-107) mmol/L Carbon Dioxide (21-32) mmol/L Anion Gap (3-11) BUN (7-18) mg/dl Creatinine (0.6-1.2) mg/dl Est Cr Clr Drug Dosing Est GFR ( Amer) ml/min Est GFR (Non-Af Amer) ml/min BUN/Creatinine Ratio (10-20) Glucose (70-99) mg/dl Lactate 1.9 (0.4-2.0) mmol/L Calcium (8.5-10.1) mg/dl Magnesium (1.8-2.4) mg/dl Total Bilirubin (0.2-1) mg/dl AST (15-37) U/L ALT (12-78) U/L Alkaline Phosphatase (45-117) U/L Troponin I (0-0.045) ng/ml Total Protein (6.4-8.2) gm/dl Albumin (3.4-5.0) gm/dl Globulin (2.5-4.0) gm/dl Albumin/Globulin Ratio (0.9-2) Lipase (73-393) U/L Procalcitonin 2.01 H Specimen Hemolysis Urine Color [place]ha Urine Appearance Cloudy A (Clear) Urine pH 6.0 (4.5-7.5) Ur Specific [place] 1.021 (1.000-1.030) Urine Protein 2+ H (Negative) Urine Glucose (UA) Negative (Negative) Urine Ketones 1+ H (Negative) Urine Blood 2+ H (Negative) Urine Nitrite Positive A (Negative) Urine Bilirubin 1+ H (Negative) Urine Urobilinogen Negative (Negative) Ur Leukocyte Esterase 2+ H (Negative) Urine WBC (Auto) >30 H (0-5) /hpf Urine RBC (Auto) >30 H (0-4) /hpf U Hyaline Cast (Auto) 1-5 (0-5) /lpf U Epithel Cells (Auto) 0-5 (0-5) /lpf Urine Bacteria (Auto) 4+ H (Negative) COVID-19 Eval Order SARS-CoV-2 (PCR) (Negative) Influ A Molecular Assay (Negative) Influ B Molecular Assay (Negative) Imaging Data Radiologist's Impression: Chest X-Ray 06/07/21 11:18 XR chest 1V portable HISTORY: 81 years-old Female SEPSIS acute sepsis COMPARISON: Chest radiograph 11/26/2020 TECHNIQUE: Portable AP view the chest FINDINGS: The cardiac silhouette appears normal. Mild asymmetric right hilar prominence may be projectional. Right IJ [id number] catheter appears unchanged. Calcified plaque the thoracic aorta. Mild right hemidiaphragmatic elevation. No pneumothorax, pleural effusion, airspace consolidation or overt pulmonary edema. Degenerative changes of the shoulders and spine. IMPRESSION: No acute process. ACT 112: Negative or not required by law. The above report was generated using voice recognition software. It may contain grammatical, syntax or spelling errors. Electronically signed by: Brody Loya M.D. 06/07/2021 11:[address] 06/07/21 11:19 CT head/brain wo con Clinical Indication: MN ^CTR RM C4 ^fever weakness nausea bladder ca . Technique: Contiguous axial CT images of the head were acquired from the base of the skull to the vertex without intravenous contrast administration. Images were viewed in brain, subdural and bone windows. Automated dose lowering techniques and/or adjustment according to patient size were utilized for this exam. Comparison: None available at the time of this dictation. Findings: The ventricles, basal cisterns, and cerebral sulci are normal. There is no acute intracranial hemorrhage or evidence of acute territorial infarction. Neither mass effect, shift of the midline structures, nor abnormal extra-axial fluid collections are shown. 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 Imaged portions of the paranasal sinuses and mastoid air cells are clear. The orbits appear normal. There are no acute fractures of the calvaria or scalp swelling. Impression: No acute intracranial process, in particular no edema to suggest metastatic disease in this patient with history of bladder cancer. ACT 112: Negative or not required by law. Electronically signed by: Stew Ramsey M.D. 06/07/2021 12:42 PM Abdomen/Pelvis CT 06/07/21 11:49 CT abd pelvis wo con CLINICAL INDICATION: Abdominal pain, nausea, fever, bladder cancer history. TECHNIQUE: Helical axial images of the abdomen and pelvis were obtained. Automated dose lowering techniques and/or adjustment according to patient size were utilized for this exam. This exam was performed without intravenous contrast. COMPARISON: None available at the time of this dictation. FINDINGS: Lower chest: No acute abnormality Liver: Multiple hypodensities are seen in the liver compatible with cysts. Hepatomegaly is seen. Gallbladder and biliary tree: No calcified gallstones. Normal caliber wall. No intra- or extrahepatic biliary ductal dilation. Pancreas: Unremarkable, no focal lesions. Spleen: Unremarkable. Adrenals: Unremarkable. Kidneys and ureters: Unremarkable. Bladder: Patient is status post cystectomy with ileal conduit creation. Reproductive organs: Patient is status post hysterectomy. Bowel: A hiatal hernia is seen. Diverticulosis is seen without evidence of diverticulitis. The appendix is absent. Lymph nodes Retroperitoneal: Unremarkable. Mesenteric: Unremarkable. Pelvic: Unremarkable. Peritoneum: Normal Vessels: Atherosclerotic calcifications are seen. Abdominal wall: A fat-containing umbilical hernia is seen. Bones: Degenerative changes in the visualized spine. IMPRESSION: Status post cystectomy with ileal conduit formation. No evidence of recurrent or metastatic disease. ACT 112: Negative or not required by law. Electronically signed by: Stew Ramsey M.D. 06/07/2021 12:57 PM ECG Data Indication: + nausea Rate (beats per minute): 67 Rhythm: + normal sinus ECG Intervals/blocks: + Normal QRS, + Normal MT and + Normal QT-c ECG ST segments: + Normal ST segments MDM Narrative Vital signs stable. Labs show leukocytosis of 16.8. Lactic acid elevated 2.1. Urinalysis concerning for UTI. Procalcitonin is elevated. Patient treated with Rocephin. Creatinine up to 1.9 from baseline of around 1. [facility]. Impression & Plan Complicated UTI (urinary tract infection), Acute kidney injury superimposed on chronic kidney disease Discharge Plan Visit Data Chief Complaint: Weakness Stated Complaint: FATIGUE,WEAKNESS,NAUSEA,RECTAL PAIN Discharge Problem: Complicated UTI (urinary tract infection), Acute kidney injury superimposed on chronic kidney disease Patient Disposition: Admitted As Inpatient Forms Stand Alone Forms: [facility] [place] [email or web address] Prescriptions Prescriptions: No Action metoprolol succinate 25 mg tablet extended release 24 hr 25 mg PO HS RF: 0 oxycodone 10 mg tablet 10 mg PO Q4H PRN (Reason: Pain) RF: 0 cyanocobalamin (vitamin B-12) [Vitamin B-12] 1,000 mcg Tablet 1,000 mcg PO HS RF: 0 losartan 100 mg Tablet 100 mg PO HS RF: 0 sennosides [senna] 8.6 mg Tablet 8.6 mg PO BID RF: 0 acetaminophen [Tylenol Extra Strength] 500 mg Tablet 500 mg PO Q6H PRN (Reason: Pain) RF: 0 polyethylene glycol 3350 [Miralax] 17 gram/dose Powder 17 g PO DAILY RF: 0 amlodipine [Norvasc] 5 mg tablet 5 mg PO HS RF: 0 ondansetron HCl 8 mg tablet 8 mg PO Q8H PRN (Reason: Nausea) RF: 0 pantoprazole 20 mg Tablet,Delayed Release (Dr/Ec) 20 mg PO DAILY RF: 0 Referrals Referrals: Gumaro Rivera, [Primary Care Provider] -
[2021-06-07] MEDS ORDERED: POLYETHYLENE (MIRALAX) 17 GM PACK PO PRN (20:39)
[2021-06-07] MEDS: LIDOCAINE 5% 1 PATCH TD SCH (20:55)
[2021-06-07] MEDS: METOPROLOL SUCC 25MG EXT REL TAB PO SCH (21:54)
[2021-06-07] MEDS: SENNA 8.6 MG TAB PO SCH (21:54)
[2021-06-07] MEDS: amLODIPine BESYLATE 5 MG TAB PO SCH (21:54)
[2021-06-07] MEDS: CYANOCOBALAMIN 500 MCG TABLET (VITAMIN B-12) PO SCH (21:55)
[2021-06-07] MEDS: HEPARIN SOD 5,000 UNIT/0.5 ML VIAL SQ SCH (21:55)
[2021-06-08] MEDS: oxyCODONE HCL IR 5 MG TAB (IMMEDIATE RELEASE) PO PRN ×4 (01:30→20:57)
[2021-06-08] MEDS: SODIUM CHLORIDE 0.9% 1000ML 1,000 ML IV SCH ×2 (05:40→16:11)
[2021-06-08] MEDS: HEPARIN SOD 5,000 UNIT/0.5 ML VIAL SQ SCH ×3 (05:40→20:47)
[2021-06-08 07:12] LABS: Hematocrit (blood only) 32.3 % (37-47); Hemoglobin 10.9 g/dL (12.0-16.0); Mean Corpuscular Hemoglobin 30.6 pg (25-34); Mean Corpuscular Hgb Conc 33.7 g/dL (32-36); Mean Corpuscular Volume 90.7 fL (80-100); Mean Platelet Volume 10.2 fL (7.4-10.4); Platelet Count 383 K/uL (130-400); RDW Coefficient of Variation 14.5 % (11.5-14.5); RDW Standard Deviation 48.6 fL (36.4-46.3); Red Blood Count 3.56 M/uL (4.2-5.4); White Blood Count 15.47 K/uL (4.8-10.8)
[2021-06-08 07:41] LABS: Albumin Level 1.9 gm/dl (3.4-5.0); BUN Creatinine Ratio 30.7 (10-20); Calcium 8.8 mg/dl (8.5-10.1); Creatinine Clr Calc Pharmacy 28.5 ml/min; Est GFR (African American) 40.2 ml/min; Est GFR (Non-African American) 34.7 ml/min; Potassium 4.4 mmol/L (3.5-5.1)
[2021-06-08 07:46] LABS: Albumin Globulin Ratio 0.5 (0.9-2); Bilirubin,Total 0.8 mg/dl (0.2-1); Globulin 3.5 gm/dl (2.5-4.0); Total Protein 5.4 gm/dl (6.4-8.2)
[2021-06-08] MEDS: cefTRIAXone SODIUM 1,000 MG in DEXTROSE 5% 50 ML IV SCH (08:16)
[2021-06-08] MEDS: SENNA 8.6 MG TAB PO SCH ×2 (08:20→20:47)
[2021-06-08] MEDS: PANTOprazole 40 MG TAB PO SCH (08:20)
[2021-06-08] MEDS: POLYETHYLENE (MIRALAX) 17 GM PACK PO SCH (08:26)
[2021-06-08] MEDS: LIDOCAINE 5% 1 PATCH TD SCH (10:20)
[2021-06-08] MEDS: CYANOCOBALAMIN 500 MCG TABLET (VITAMIN B-12) PO SCH (20:46)
[2021-06-08] MEDS: amLODIPine BESYLATE 5 MG TAB PO SCH (20:46)
[2021-06-08] MEDS: METOPROLOL SUCC 25MG EXT REL TAB PO SCH (20:47)
[2021-06-09] MEDS: SODIUM CHLORIDE 0.9% 1000ML 1,000 ML IV SCH ×2 (02:47→13:04)
[2021-06-09] MEDS: HEPARIN SOD 5,000 UNIT/0.5 ML VIAL SQ SCH ×3 (06:24→22:00)
[2021-06-09] MEDS: oxyCODONE HCL IR 5 MG TAB (IMMEDIATE RELEASE) PO PRN ×3 (06:31→21:56)
[2021-06-09 07:34] LABS: Hematocrit (blood only) 32.2 % (37-47); Hemoglobin 10.7 g/dL (12.0-16.0); Mean Corpuscular Hemoglobin 30.1 pg (25-34); Mean Corpuscular Hgb Conc 33.2 g/dL (32-36); Mean Corpuscular Volume 90.7 fL (80-100); Mean Platelet Volume 10.2 fL (7.4-10.4); Platelet Count 382 K/uL (130-400); RDW Coefficient of Variation 14.5 % (11.5-14.5); RDW Standard Deviation 48.5 fL (36.4-46.3); Red Blood Count 3.55 M/uL (4.2-5.4); White Blood Count 11.48 K/uL (4.8-10.8)
[2021-06-09 08:07] LABS: Albumin Level 1.7 gm/dl (3.4-5.0); BUN Creatinine Ratio 33.1 (10-20); Calcium 8.9 mg/dl (8.5-10.1); Creatinine Clr Calc Pharmacy 41.3 ml/min; Est GFR (African American) 56.9 ml/min; Est GFR (Non-African American) 49.1 ml/min; Potassium 4.2 mmol/L (3.5-5.1)
[2021-06-09] MEDS: cefTRIAXone SODIUM 1,000 MG in DEXTROSE 5% 50 ML IV SCH (08:07)
[2021-06-09] MEDS: POLYETHYLENE (MIRALAX) 17 GM PACK PO SCH (08:07)
[2021-06-09] MEDS: SENNA 8.6 MG TAB PO SCH ×2 (08:08→22:00)
[2021-06-09] MEDS: PANTOprazole 40 MG TAB PO SCH (08:08)
[2021-06-09 08:10] LABS: Albumin Globulin Ratio 0.5 (0.9-2); Bilirubin,Total 0.9 mg/dl (0.2-1); Globulin 3.4 gm/dl (2.5-4.0); Total Protein 5.1 gm/dl (6.4-8.2)
[2021-06-09] MEDS: LIDOCAINE 5% 1 PATCH TD SCH (10:08)
--- NOTE | 2021-06-09 20:46 | Hospitalist Progress Note ---
Date of Service June 09, 2021 Assessment & Plan (1) Sepsis: (2) Complicated UTI (urinary tract infection): (3) Bladder cancer: Plan: 81yo F with a PMH of recurrent bladder cancer, metastasis to lung, cancer related pain, opioid induced, constipation, CKD III, HTN was sent 06/07 from [facility] for further evaluation of subjective fevers, generalized weakness. Follows with Dr. Paul Galicia of medical oncology and Dr. Amrita Galicia for rad onc. Started Keytruda 3 weeks ago and was scheduled for first palliative external beam radiation therapy to recurrent pelvic mass today but was feeling poorly and was sent over by [facility] center for further evaluation in ED. Has been feeling progressively more weak and fatigued over the past 2 weeks. Ongoing pelvic pain. Denies any fever or chills. No headache, lightheadedness, chest pain, SOB, nausea, vomiting, abdominal pain. Poor appetite over the past 3 weeks with decreased PO intake. Issues with constipation on opioids. Adjusted bowel regimen in past few weeks. Recently established with outpatient [facility] palliative care to better address goals of addressing pain and improving quality of life. Is a DNR/DNI but agreeable to IV antibiotics. #. Sepsis: #. Complicated UTI (urinary tract infection): Sent from [facility] 06/07 for further evaluation of subjective fevers, generalized weakness and was found to have sepsis 2/2 complicated UTI in the ED. At presentation - Afebrile, BP stable, wbc 16.88k, procal 2.01, lactate 2.1 -> 1.9 Sepsis resolved, patient doing better, WBC trending down. UA grossly abnormal, started on empiric Rocephin which will be continued Follow urine, blood cultures; tailor antibiotic when results are out. CXR and CT abd/pelvis without acute changes or evidence of infection IV fluids and ATB #. Acute kidney injury superimposed on chronic kidney disease: Cr 1.9 (baseline ~1 but trending upwards for past month) in setting of poor PO intake, recently started on Keytruda Resolved. Will resume losartan. DC IV fluids. #. Bladder cancer: Diagnosed in 2018 with recurrence S/p cystectomy with [place]teroileal [place] [facility] [place] [address] Paul Galicia of medical oncology and Dr. Amrita Galicia for rad onc Started Keytruda 3 weeks ago and was scheduled for first palliative external beam radiation therapy to recurrent pelvic mass on the day of presentation Recently established with [facility] palliative care as well to readdress goals We will consult radiation oncology. #. Cancer related pain: Continue oxycodone 10mg Q4H PRN, adding lidocaine patch Family interested in medical marijuana - will discuss with OP palliative care Avoiding Tylenol given worsening transaminitis, nsaids given YAKELIN Will consider Relistor if patient continues to be constipated despite adequate oral intake. #. Elevated LFTs: Up trending LFTs over the past month - patient inadvertently taking too much tylenol (1,000mg Q6H) but recently decreased to 500mg Q6H At presentation - tbili 1.3, AST 133, ALT 106, alk phos 479 Keytruda possibly contributing ? Hold tylenol for now, trend CMP #. Hypertension: Fairly under control Continue Amlodipine, Toprol and losartan DVT Ppx: SQ heparin Code status: DNR/DNI PCP: Sherin Rivera Dispo: Admitted to PCU. Discharge planning ordered. Await PT OT eval. Admission and Anticipated Discharge Date Admission Date: June 07, 2021 Subjective Patient was lying in bed, on room air, in mild distress secondary to pain in her pelvic region, no new events overnight. Patient is eating less, states that she does not have appetite, has not moved bowel. Patient denies headache/fever/chest pain/other review of symptoms. Patient states that oxycodone makes her constipated but she needs it for pain control. Physical Exam Physical Exam: GENERAL: Alert and oriented x3. mild distress, on RA. HEENT: No pallor, no icterus. Pupils equal, round and reactive to light. Oral mucosa moist. NECK: No JVD, no neck masses. HEART: S1 and S2 heard. Regular rate and rhythm. Systolic murmur at pulmonic area, no gallop. RESPIRATORY SYSTEM: Normal AP diameter. No accessory muscle use. No wheezing, no crackles. ABDOMEN: Soft, bowel sounds present, nontender, no distention. Right urostomy bag with urine collection. CENTRAL NERVOUS SYSTEM: No facial droop. Speech is clear. Obeys simple commands. Moves extremities. EXTREMITIES: No edema, no erythema seen. Results & Data Results & Data ([facility]) Vital Signs (Past 12 Hours) Vital Signs Temp Pulse Pulse Resp BP BP Pulse Ox 06/09/21 16:00 76 06/09/21 15:50 76 06/09/21 15:26 36.7 C 61 18 138/68 94 06/09/21 10:58 37.1 C 78 16 125/56 L
[2021-06-09] MEDS: LOSARTAN POTASSIUM 50 MG TAB PO SCH (21:57)
[2021-06-09] MEDS: amLODIPine BESYLATE 5 MG TAB PO SCH (21:58)
[2021-06-09] MEDS: CYANOCOBALAMIN 500 MCG TABLET (VITAMIN B-12) PO SCH (21:58)
[2021-06-09] MEDS: METOPROLOL SUCC 25MG EXT REL TAB PO SCH (22:00)
[2021-06-10] MEDS: HEPARIN SOD 5,000 UNIT/0.5 ML VIAL SQ SCH ×3 (06:20→21:05)
[2021-06-10] MEDS: oxyCODONE HCL IR 5 MG TAB (IMMEDIATE RELEASE) PO PRN (06:21)
[2021-06-10 07:56] LABS: Hematocrit (blood only) 35.1 % (37-47); Hemoglobin 11.4 g/dL (12.0-16.0); Mean Corpuscular Hemoglobin 30.2 pg (25-34); Mean Corpuscular Hgb Conc 32.5 g/dL (32-36); Mean Corpuscular Volume 92.9 fL (80-100); Mean Platelet Volume 10.1 fL (7.4-10.4); Platelet Count 393 K/uL (130-400); RDW Coefficient of Variation 14.4 % (11.5-14.5); RDW Standard Deviation 49.4 fL (36.4-46.3); Red Blood Count 3.78 M/uL (4.2-5.4); White Blood Count 12.31 K/uL (4.8-10.8)
[2021-06-10] MEDS: LIDOCAINE 5% 1 PATCH TD SCH (08:02)
[2021-06-10] MEDS: cefTRIAXone SODIUM 1,000 MG in DEXTROSE 5% 50 ML IV SCH (08:04)
[2021-06-10] MEDS: PANTOprazole 40 MG TAB PO SCH (08:05)
[2021-06-10] MEDS: SENNA 8.6 MG TAB PO SCH ×2 (08:05→19:54)
[2021-06-10] MEDS: POLYETHYLENE (MIRALAX) 17 GM PACK PO SCH (08:10)
[2021-06-10 08:22] LABS: Albumin Level 1.8 gm/dl (3.4-5.0); BUN Creatinine Ratio 31.9 (10-20); Calcium 8.7 mg/dl (8.5-10.1); Creatinine Clr Calc Pharmacy 43.7 ml/min; Est GFR (African American) 60.3 ml/min; Est GFR (Non-African American) 52.1 ml/min; Potassium 4.3 mmol/L (3.5-5.1)
[2021-06-10 08:25] LABS: Albumin Globulin Ratio 0.5 (0.9-2); Bilirubin,Total 1.2 mg/dl (0.2-1); Globulin 3.5 gm/dl (2.5-4.0); Total Protein 5.3 gm/dl (6.4-8.2)
--- NOTE | 2021-06-10 09:14 | Communication Note ---
Date of Service: June 10, 2021 I have communicated with the hospitalist team. The patient is doing better since being admitted to the hospital for sepsis. The patient is currently on treatment for palliative external beam radiation therapy for pelvic recurrence. We will continue to bring the patient down for radiation therapy while she is admitted to the hospital. The patient's admission was unrelated to her current radiation therapy.
[2021-06-10] MEDS: ONDANSETRON INJ 2 MG/ML 2 ML VIAL IV PRN ×2 (13:13→18:37)
--- NOTE | 2021-06-10 16:05 | Gastrointestinal Consultation ---
Date of Consultation June 10, 2021 Assessment & Plan (1) Elevated LFTs: Elevated transaminases and alk phos, consistent with Keytruda use and metastatic disease. Keytruda causes moderate transaminase elevation and 10 to 20% of patients. It also causes an autoimmune reaction and a smaller proportion of patients though typically with higher LFTs if from an autoimmune issue. Would check right upper quadrant ultrasound to verify no evidence of gallbladder disease and no bile duct abnormalities. We will check LEONARDA to screen for autoimmune disorders. This does not contraindicate Keytruda use, would watch LFTs carefully. We will continue to follow. Supervising Physician Co-Signing Physician Notes Attending attestation Late entry, patient was seen on date of [employer] provider: I have seen, examined this patient, and agree with the findings and above by our mid-level provider JEANETTE Dover, with the following additions - ? drug induced, serologic work up and will need follow up History of Present Illness Reason for Consultation: Elevated LFT Requesting Physician: Dr. Hu Attending Physician: Luis Angel Hu MD History of Present Illness Ms. Kristine Tucker is an 81-year-old female patient of Dr. Gumaro Rivera with a hx of recurrent bladder cancer, metastasis to lung, cancer related pain, opioid induced, constipation, CKD III, HTN , presented to the ED on 06 07 for subjective fevers. Work-up positive for UTI sepsis. GI is consulted for elevated transaminases. Review of LFTs in the outpatient and inpatient setting shows normal LFTs in April. Keytruda was started on May 11, 2021 Next dose was given on June 01. LFTs were mildly elevated when checked on June 01. With further elevation on arrival here. The patient denies any right upper quadrant abdominal pain, postprandial nausea or postprandial upper abdomen pain. She does have significant suprapubic pain. She has not had yellow skin, dark urine, vomiting, though has had some nausea. CT scan with hepatomegaly, multiple liver cysts, normal bile ducts..Liver: Multiple hypodensities are seen in the liver compatible with cysts. Hepatomegaly is seen. Gallbladder is present no calcified gallstones. Allergies Allergy/AdvReac Type Severity Reaction Status Date / Time ciprofloxacin [From Cipro] Allergy Mild Unknown Verified 06/07/21 11:48 levofloxacin [From Levaquin] Allergy Mild Unknown Verified 06/07/21 11:48 methohexital [From Brevital] Allergy Mild Unknown Verified 06/09/21 20:57 Penicillins Allergy Mild Unknown Unverified 06/07/21 11:48 Sulfa (Sulfonamide Allergy Mild Unknown Unverified 06/07/21 11:48 Antibiotics) Home Medications Medication Instructions Recorded Confirmed Type cyanocobalamin (vitamin B-12) 1,000 mcg PO HS 11/26/20 06/07/21 History 1,000 mcg tablet (Vitamin B-12) losartan 100 mg tablet 100 mg PO HS 11/26/20 06/07/21 History metoprolol succinate 25 mg 25 mg PO HS tab 05/28/21 06/07/21 History tablet,extended release 24 hr oxycodone 10 mg tablet 10 mg PO Q4H PRN 05/28/21 06/07/21 History acetaminophen 500 mg tablet 500 mg PO Q6H PRN 06/07/21 06/07/21 History (Tylenol Extra Strength) amlodipine 5 mg tablet (Norvasc) 5 mg PO HS 06/07/21 06/07/21 History ondansetron HCl 8 mg tablet 8 mg PO Q8H PRN 06/07/21 06/07/21 History pantoprazole 20 mg tablet,delayed 20 mg PO DAILY 06/07/21 06/07/21 History release polyethylene glycol 3350 17 17 g PO DAILY 06/07/21 06/07/21 History gram/dose oral powder (Miralax) sennosides 8.6 mg tablet (senna) 8.6 mg PO BID 06/07/21 06/07/21 History Patient History Medical History Bladder cancer (~02/2018) CKD (chronic kidney disease), stage III Generalized weakness Hiatal hernia s/p Repair History of chemotherapy 07/21/2020 - 10/07/2020 - Gemcitabine + Carboplatin Local BCG + Mitomycin BCG (Intravescial) Planning - Keytruda q 21 days (with Dr. Alfie Galicia) Hypertension Port-A-Cath in place Retinal lesion "treat localized" Surgical History History of cataract extraction History of laparoscopic appendectomy History of repair of hiatal hernia (2017) History of tonsillectomy and adenoidectomy History of total hysterectomy with bilateral salpingo-oophorectomy (BSO) (11/11/20) History of transurethral destruction of bladder lesion x 5 S/P ileal conduit (11/11/20) Family History Mother , Passed age 89 of "brain bleeding" complications No problems noted. Father , Passed age 86 of natural causes Prostate cancer, Onset Age: 55 Radiation - did well after Brother , Passed age 4 of Hydrocephalus No problems noted. Brother , Passed age 21 of drug overdose No problems noted. Sister Breast cancer, Onset Age: 56 Son No problems noted. Daughter No problems noted. 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 Skin: No jaundice, itching or new rashes A total of 12 systems were reviewed, all others negative Physical Exam Constitutional: well developed, well nourished, + thin and cooperative Eyes: PERRL, conjunctivae normal, anicteric sclerae Respiratory: normal respiratory effort, lungs clear to auscultation Cardiovascular: RRR, no murmur, no edema Gastrointestinal (Abdomen): Inspection/Auscultation: abdomen normal to inspection and normal bowel sounds Percussion/Palpation: + abdomen tender (Lower abdomen) and abdomen soft; no ascites Skin: no rashes, warm and dry normal turgor Neurologic: PERRL, EOMI, accommodation nl, no face palsy, no dysarthria awake; not confused Psychiatric: A+Ox3, euthymic affect Orientation: alert, oriented x 3 and cooperative Results & Data ([facility]) Vital Signs (Past 12 Hours) Vital Signs Temp Pulse Resp BP Pulse Ox 06/10/21 11:00 36.9 C 84 18 129/68 99 06/10/21 08:00 37.0 C 81 18 135/73 99 06/10/21 04:39 36.7 C 87 20 145/61 H 96 Laboratory Results WBC 12, Hb 11, HCT 35, PLT S3 9 3, NA 140, K4.3, CL 113, CO2 20, BUN 32, CR 1, glucose 81 T bili 1.2, AST 114, ALT 89, alk phos 375 Diagnostic Findings CTAP: 06/07/21: Gallbladder and biliary tree: No calcified gallstones. Normal caliber wall. No intra- or extrahepatic biliary ductal dilation. Status post cystectomy with ileal conduit formation. No evidence of recurrent or metastatic disease.
--- NOTE | 2021-06-10 17:38 | Ultrasound Report ---
US abdomen limited HISTORY: 81 years-old Female elevated LFTs, r/o gallstones, CBD abnormalities acutely elevated LFTs COMPARISON: CT abdomen and pelvis 06/07/2021, CTA chest 05/05/2021. TECHNIQUE: Multiple real-time sonographic images of the abdominal right upper quadrant were obtained assessing grayscale appearance and color flow FINDINGS: Visualized pancreas is unremarkable, partially obscured by bowel gas. Heterogeneity of the liver with areas of increased echogenicity. Cysts of the liver including a septa yasmine cyst which overall measures 1.7 x 1.6 x 1.6 cm. No intrahepatic biliary ductal dilation. Mild gallbladder distention. No shadowing cholelithiasis, wall thickening or pericholecystic fluid. N ormal common bile duct, 4 mm. The imaged right kidney is unremarkable without hydronephrosis. IMPRESSION: 1. Diffusely heterogeneous liver with areas of increased echogenicity are suggestive of geographic he patic steatosis. 2. Hepatic cysts are redemonstrated. 3. No cholelithiasis or sonographic evidence of acute cholecystitis. ACT 112: Negative or not required by law. The above report was generated using voice recognition software. It may contain grammatical, syntax o r spelling errors. Electronically signed by: Brody Loya M.D. 06/10/2021 5:37 PM
--- NOTE | 2021-06-10 18:25 | Hospitalist Progress Note ---
Date of Service June 10, 2021 Assessment & Plan (1) Sepsis: (2) Complicated UTI (urinary tract infection): (3) Bladder cancer: Plan: 81yo F with a PMH of recurrent bladder cancer, metastasis to lung, cancer related pain, opioid induced, constipation, CKD III, HTN was sent 06/07 from [facility] for further evaluation of subjective fevers, generalized weakness. Follows with Dr. Paul Galicia of medical oncology and Dr. Amrita Galicia for rad onc. She is being managed for the following: #. Sepsis: #. Complicated UTI (urinary tract infection): Sent from [facility] 06/07 for further evaluation of subjective fevers, generalized weakness and was found to have sepsis 2/2 complicated UTI in the ED. At presentation - Afebrile, BP stable, wbc 16.88k, procal 2.01, lactate 2.1 -> 1.9 Sepsis resolved, patient doing better, WBC trending down. UA grossly abnormal, started on empiric Rocephin which will be continued Transition to oral Augmentin after tomorrow's Rocephin dose. CXR and CT abd/pelvis without acute changes or evidence of infection #. Acute kidney injury superimposed on chronic kidney disease: Cr 1.9 (baseline ~1 but trending upwards for past month) in setting of poor PO intake, recently started on Keytruda Resolved. #. Bladder cancer: Diagnosed in 2018 with recurrence S/p cystectomy with ureteroileal conduit at [facility] [place] in November [address] Paul Galicia of medical oncology and Dr. Amrita Galicia for rad onc Started Keytruda 3 weeks ago and was scheduled for first palliative external beam radiation therapy to recurrent pelvic mass on the day of presentation Recently established with [facility] palliative care as well to readdress goals Radiation oncology consulted, patient undergoing palliative radiation while inpatient. #. Cancer related pain: Continue oxycodone 10mg Q4H PRN, adding lidocaine patch Family interested in medical marijuana - will discuss with OP palliative care Avoiding Tylenol given worsening transaminitis, nsaids given YAKELIN Will consider Relistor if patient continues to be constipated despite adequate oral intake. #. Elevated LFTs: Up trending LFTs over the past month - patient inadvertently taking too much tylenol (1,000mg Q6H) but recently decreased to 500mg Q6H At presentation - tbili 1.3, AST 133, ALT 106, alk phos 479 Keytruda possibly contributing GI consulted: Likely Keytruda contributing, ordered RUQ ultrasound and LEONARDA, no contraindication to Keytruda use but monitor LFTs carefully. Hold tylenol for now, trend CMP #. Hypertension: Fairly under control Continue Amlodipine, Toprol and losartan DVT Ppx: SQ heparin Code status: DNR/DNI PCP: Sherin Rivera Dispo: Admitted to PCU. Discharge planning ordered. OT recommending 27/03 supervision and home health OT. Expect discharge in 1 to 2 days. Admission and Anticipated Discharge Date Admission Date: June 07, 2021 Subjective Patient was lying in bed, on room air, in mild distress, no new events overnight. Patient reporting constant pelvic/perineal pain. Denies headache/dizziness/other review of symptoms. Physical Exam Physical Exam: GENERAL: Alert and oriented x3. mild distress, on RA. HEENT: No pallor, no icterus. Pupils equal, round and reactive to light. Oral mucosa moist. NECK: No JVD, no neck masses. HEART: S1 and S2 heard. Regular rate and rhythm. Systolic murmur at pulmonic area, no gallop. RESPIRATORY SYSTEM: Normal AP diameter. No accessory muscle use. No wheezing, no crackles. ABDOMEN: Soft, bowel sounds present, nontender, no distention. Right urostomy bag with urine collection. CENTRAL NERVOUS SYSTEM: No facial droop. Speech is clear. Obeys simple commands. Moves extremities. EXTREMITIES: No edema, no erythema seen. Results & Data Results & Data ([facility]) Vital Signs (Past 12 Hours) Vital Signs Temp Pulse Resp BP Pulse Ox 06/10/21 14:00 36.4 C L 87 18 124/63 93 06/10/21 11:00 36.9 C 84 18 129/68 99 06/10/21 08:00 37.0 C 81 18 135/73 99
[2021-06-10] MEDS: amLODIPine BESYLATE 5 MG TAB PO SCH (19:52)
[2021-06-10] MEDS: CYANOCOBALAMIN 500 MCG TABLET (VITAMIN B-12) PO SCH (19:52)
[2021-06-10] MEDS: METOPROLOL SUCC 25MG EXT REL TAB PO SCH (19:53)
[2021-06-10] MEDS: LOSARTAN POTASSIUM 50 MG TAB PO SCH (19:53)
[2021-06-11] MEDS: HEPARIN SOD 5,000 UNIT/0.5 ML VIAL SQ SCH ×3 (05:36→23:57)
[2021-06-11] MEDS: oxyCODONE HCL IR 5 MG TAB (IMMEDIATE RELEASE) PO PRN ×4 (06:18→19:15)
[2021-06-11 06:34] LABS: Hematocrit (blood only) 37.5 % (37-47); Hemoglobin 12.1 g/dL (12.0-16.0); Mean Corpuscular Hemoglobin 30.4 pg (25-34); Mean Corpuscular Hgb Conc 32.3 g/dL (32-36); Mean Corpuscular Volume 94.2 fL (80-100); Mean Platelet Volume 12.2 fL (7.4-10.4); Platelet Count 365 K/uL (130-400); RDW Coefficient of Variation 14.8 % (11.5-14.5); RDW Standard Deviation 50.4 fL (36.4-46.3); Red Blood Count 3.98 M/uL (4.2-5.4); White Blood Count 11.97 K/uL (4.8-10.8)
[2021-06-11 06:58] LABS: Albumin Level 1.9 gm/dl (3.4-5.0); BUN Creatinine Ratio 30.7 (10-20); Calcium 8.9 mg/dl (8.5-10.1); Creatinine Clr Calc Pharmacy 31.7 ml/min; Est GFR (African American) 45.6 ml/min; Est GFR (Non-African American) 39.4 ml/min; Potassium 4.7 mmol/L (3.5-5.1)
[2021-06-11 07:00] LABS: Albumin Globulin Ratio 0.5 (0.9-2); Bilirubin,Total 1.1 mg/dl (0.2-1); Globulin 3.6 gm/dl (2.5-4.0); Total Protein 5.5 gm/dl (6.4-8.2)
[2021-06-11] MEDS: LIDOCAINE 5% 1 PATCH TD SCH (09:44)
[2021-06-11] MEDS: cefTRIAXone SODIUM 1,000 MG in DEXTROSE 5% 50 ML IV SCH (09:44)
[2021-06-11] MEDS: PANTOprazole 40 MG TAB PO SCH (09:44)
[2021-06-11] MEDS: POLYETHYLENE (MIRALAX) 17 GM PACK PO SCH (09:44)
[2021-06-11] MEDS: SENNA 8.6 MG TAB PO SCH ×2 (09:44→23:56)
[2021-06-11] MEDS: SODIUM CHLORIDE 0.9% 1000ML 1,000 ML IV SCH ×2 (09:46→23:06)
--- NOTE | 2021-06-11 10:34 | Hospitalist Progress Note ---
Date of Service June 11, 2021 Assessment & Plan (1) Sepsis: (2) Complicated UTI (urinary tract infection): (3) Bladder cancer: Plan: 81yo F with a PMH of recurrent bladder cancer, metastasis to lung, cancer related pain, opioid induced, constipation, CKD III, HTN was sent 06/07 from [facility] for further evaluation of subjective fevers, generalized weakness. Follows with Dr. Paul Galicia of medical oncology and Dr. Amrita Galicia for rad onc. She is being managed for the following: #. Sepsis: #. Complicated UTI (urinary tract infection)/ureteral ileal conduit associated UTI Sent from [facility] 06/07 for further evaluation of subjective fevers, generalized weakness and was found to have sepsis 2/2 complicated UTI in the ED. Pt has urostomy bag in situ. At presentation - Afebrile, BP stable, wbc 16.88k, procal 2.01, lactate 2.1 -> 1.9 Sepsis resolved, patient doing better, WBC trending down. UA grossly abnormal, started on empiric Rocephin which will be continued Patient on Rocephin 06/08, DC after tomorrow's dose. CXR and CT abd/pelvis without acute changes or evidence of infection #. Acute kidney injury superimposed on chronic kidney disease: Cr 1.9 (baseline ~1 but trending upwards for past month) in setting of poor PO intake, recently started on Keytruda Creatinine creeping up a little bit today, will put her on gentle hydration. #. Dry mouth She reports dry mouth since coming to the hospital this time. Awaiting LEONARDA, suspect immunologic process versus environmental [patient does not have a problem with swallowing food and does not complain of dry eyes]. Patient will need follow-up with PCP as an outpatient. #. Bladder cancer: Diagnosed in 2018 with recurrence S/p cystectomy with ureteroileal conduit at [facility] [place] in November [address] Paul Galicia of medical oncology and Dr. Amrita Galicia for rad onc Started Keytruda 3 weeks ago and was scheduled for first palliative external beam radiation therapy to recurrent pelvic mass on the day of presentation Recently established with [facility] palliative care as well to readdress goals Radiation oncology consulted, patient undergoing palliative radiation while inp atient. GI recommending stopping Keytruda given her continuous elevation in LFTs. Will communicate this to her oncologist Dr. Galicia. #. Cancer related pain: Continue oxycodone 10mg Q4H PRN, adding lidocaine patch Family interested in medical marijuana - will discuss with OP palliative care Avoiding Tylenol given worsening transaminitis, nsaids given YAKELIN Will consider Relistor if patient continues to be constipated despite adequate oral intake. #. Elevated LFTs: Up trending LFTs over the past month - patient inadvertently taking too much tylenol (1,000mg Q6H) but recently decreased to 500mg Q6H At presentation - tbili 1.3, AST 133, ALT 106, alk phos 479 Keytruda possibly contributing GI consulted: Likely Keytruda contributing on background of metastatic disease, recommends discontinuing Keytruda, MRCP to verify no ductal abnormalities. Viral and autoimmune serology to follow. LEONARDA pending Hold tylenol for now, trend CMP #. Hypertension: Fairly under control Continue Amlodipine, Toprol and losartan DVT Ppx: SQ heparin Code status: DNR/DNI PCP: Sherin Rivera Dispo: Admitted to PCU. Discharge planning ordered. OT recommending 24/ supervision and home health OT. Expect discharge in 1 to 2 days. Patient reports that her son has just come out of rehab, and She won't get enough care at her home. Indicated that she wants to go to rehab. CM working on [employer]. Admission and Anticipated Discharge Date Admission Date: June 07, 2021 Subjective Patient was lying in bed, on room air, NAD, no new events overnight. Patient reporting constant pelvic/perineal pain. She received radiation today. She reports dry mouth since coming to the hospital this time. Awaiting LEONARDA, suspect immunologic process versus environmental [patient does not have a problem with swallowing food and does not complain of dry eyes], patient will need follow-up with PCP as an outpatient. Denies headache/dizziness/other review of symptoms. Patient reports that her son has just come out of rehab, and She won't get enough care at her home. Indicated that she wants to go to rehab. Physical Exam Physical Exam: GENERAL: Alert and oriented x3. mild distress, on RA. HEENT: No pallor, no icterus. Pupils equal, round and reactive to light. Oral mucosa moist. NECK: No JVD, no neck masses. HEART: S1 and S2 heard. Regular rate and rhythm. Systolic murmur at pulmonic area, no gallop. RESPIRATORY SYSTEM: Normal AP diameter. No accessory muscle use. No wheezing, no crackles. ABDOMEN: Soft, bowel sounds present, nontender, no distention. Right urostomy bag with urine collection. CENTRAL NERVOUS SYSTEM: No facial droop. Speech is clear. Obeys simple commands. Moves extremities. EXTREMITIES: No edema, no erythema seen. Results & Data Results & Data ([facility]) Vital Signs (Past 12 Hours) Vital Signs Temp Pulse Resp BP Pulse Ox 06/11/21 02:59 36.4 C L 89 16 125/68 94 06/10/21 23:03 36.7 C 77 18 95/53 L 96
--- NOTE | 2021-06-11 11:27 | Gastroenterology Progress Note ---
Date of Service June 11, 2021 Assessment & Plan (1) Elevated LFTs: Plan: Elevated transaminases and alk phos, consistent with Keytruda use and metastatic disease. There is no evidence of gallstones, CBD dilation and pt has not had upper abodmen pain. Keytruda causes moderate transaminase elevation and 10 to 20% of patients. It also causes an autoimmune reaction and a smaller proportion of patients though typically with higher LFTs if from an autoimmune issue. With continued increasing LFTs, recommend discontinuing Keytruda. Will do complete vi MRCP to verify no ductal abnormalities. Viral and autoimmune serology (ordered). LEONARDA pending. WIll review MRCP results and watch peripherally. Admission and Anticipated Discharge Date Admission Date: June 07, 2021 Supervising Physician Co-Signing Physician Notes I saw and evaluated the patient. The patient does have a history of elevated liver test, based on the history I suspect that the likely etiology is her medication which is being used for her malignancy. The patient is on Keytruda which is known to cause elevated liver enzymes. Recommendations: Consider stopping Keytruda/would chelle that this be discussed this with her oncology doctor hepatitis HBV serologies CMV serologies EBV serologies Daily liver enzymes Please call with any questions or concerns Subjective 81 female metastatic bladder cancer on Keytruda. GI consulted for asymptomatic elevation of LFTs. T bili 1.1, AST increased to 154 today, ALT increased to 101, alk phos increased to 411 today. Ultrasound with fatty liver no stones or bile duct dilation. Noncontrast CT June 07 with liver cysts no bile duct abnormalities. No events. Eating small amts. Suprapubic pain. No nausea/vomiting or jaundice. No upper abd pain. Review of Systems Review of Systems: ROS: Gen: +weakness - improving, + fevers, +weight loss Eyes: No eye redness, or pain, no recent vision changes Resp: No SOB, no cough Cardio: No palpitations/irregular beats, no chest pain GI: See HPI otherwise negative : + suprapubic pain, ileostomy tube. Skin: No jaundice, itching or new rashes A total of 12 systems were reviewed, all others negative Physical Exam Constitutional: well developed, well nourished, + thin and cooperative Eyes: PERRL, conjunctivae normal, anicteric sclerae Respiratory: normal respiratory effort, lungs clear to auscultation Cardiovascular: RRR, no murmur, no edema Gastrointestinal (Abdomen): Inspection/Auscultation: abdomen normal to inspection and normal bowel sounds Percussion/Palpation: + abdomen tender (Lower abdomen) and abdomen soft; no ascites Skin: no rashes, warm and dry normal turgor Neurologic: PERRL, EOMI, accommodation nl, no face palsy, no dysarthria awake; not confused Psychiatric: A+Ox3, euthymic affect Orientation: alert, oriented x 3 and cooperative Results & Data ([facility]) Vital Signs (Past 12 Hours) Vital Signs Temp Pulse Resp BP Pulse Ox 06/11/21 10:40 36.7 C 83 18 118/67 94 06/11/21 02:59 36.4 C L 89 16 125/68 94 Laboratory Results WBC was 15 today 11, Hb 12, HCT 37, Plt is 365, Na 142, K 4.7, BUN 39, CR 1.26, glucose 98 Diagnostic Findings US 06/10 1. Diffusely heterogeneous liver with areas of increased echogenicity are suggestive of geographic hepatic steatosis. 2. Hepatic cysts are redemonstrated. 3. No cholelithiasis or sonographic evidence of acute cholecystitis. Non contrast CT 06/07: Liver: Multiple hypodensities are seen in the liver compatible with cysts. Hepatomegaly is seen. Gallbladder and biliary tree: No calcified gallstones. Normal caliber wall. No intra- or extrahepatic biliary ductal dilation.is.
[2021-06-11 14:39] LABS: Ferritin 804.5 ng/ml (8-388)
[2021-06-11 14:57] LABS: Hepatitis B Surf Ag Rflx Conf Neg (Neg)
[2021-06-11 15:26] LABS: Hepatitis C IgG 13Yrs+Old_Rflx Neg (Neg)
[2021-06-11] MEDS ORDERED: PROMETHAZINE HCL 6.25 MG in SODIUM CHLORIDE 0.9% 50 ML IV PRN (21:14)
[2021-06-11] MEDS ORDERED: NALOXONE HCL 0.4 MG/1 ML VIAL/CARP IV STA (23:04)
[2021-06-11] MEDS: CYANOCOBALAMIN 500 MCG TABLET (VITAMIN B-12) PO SCH (23:54)
[2021-06-11] MEDS: METOPROLOL SUCC 25MG EXT REL TAB PO SCH (23:54)
[2021-06-11] MEDS: amLODIPine BESYLATE 5 MG TAB PO SCH (23:55)
[2021-06-11] MEDS: LOSARTAN POTASSIUM 50 MG TAB PO SCH (23:56)
[2021-06-12] MEDS ORDERED: LACTULOSE SYRUP 30 GM/45 ML UDP PO STA (00:07)
--- NOTE | 2021-06-12 00:07 | Communication Note ---
Date of Service: June 12, 2021 Made aware by RN of patient lethargy. Serum ammonia 62.3 AP Encephalopathy Multifactorial Hepatic encephalopathy Opioid narcosis Lactulose Hold oxycodone for sedation/confusion Narcan as needed Will relay to AM provider.
[2021-06-12] MEDS: HEPARIN SOD 5,000 UNIT/0.5 ML VIAL SQ SCH ×3 (07:12→21:07)
[2021-06-12] MEDS ORDERED: MoRPHine SULFATE 2 MG/ML CARP IV STA ×2 (08:01→12:52)
[2021-06-12 08:20] LABS: Calcium 8.5 mg/dl (8.5-10.1); Creatinine Clr Calc Pharmacy 18.8 ml/min; Est GFR (African American) 24.3 ml/min; Potassium 4.6 mmol/L (3.5-5.1)
[2021-06-12 08:23] LABS: Albumin Globulin Ratio 0.6 (0.9-2); Bilirubin,Total 1.1 mg/dl (0.2-1); Globulin 3.4 gm/dl (2.5-4.0); Total Protein 5.4 gm/dl (6.4-8.2)
[2021-06-12] MEDS: cefTRIAXone SODIUM 1,000 MG in DEXTROSE 5% 50 ML IV SCH ×2 (08:29→23:59)
[2021-06-12] MEDS: LACTULOSE SYRUP 30 GM/45 ML UDP PO SCH ×3 (11:55→20:46)
[2021-06-12] MEDS: LACTATED RINGER'S 1,000 ML IV SCH ×2 (11:56→19:33)
[2021-06-12] MEDS ORDERED: MoRPHine SULFATE 2 MG/ML CARP ONE (12:54)
[2021-06-12] MEDS ORDERED: METHYLNALTREXONE BROMIDE 12 MG/0.6 ML VIAL SQ ONE (13:45)
[2021-06-12] MEDS: POLYETHYLENE (MIRALAX) 17 GM PACK PO SCH (13:54)
[2021-06-12] MEDS: LIDOCAINE 5% 1 PATCH TD SCH (13:56)
[2021-06-12] MEDS: PANTOprazole 40 MG TAB PO SCH (14:52)
[2021-06-12] MEDS: SENNA 8.6 MG TAB PO SCH ×2 (14:52→20:45)
--- NOTE | 2021-06-12 18:09 | Hospitalist Progress Note ---
Date of Service June 12, 2021 Assessment & Plan (1) Sepsis: (2) Complicated UTI (urinary tract infection): (3) Bladder cancer: Plan: 81yo F with a PMH of recurrent bladder cancer, metastasis to lung, cancer related pain, opioid induced, constipation, CKD III, HTN was sent 06/07 from [facility] for further evaluation of subjective fevers, generalized weakness. Follows with Dr. Paul Galicia of medical oncology and Dr. Amrita Galicia for rad onc. She is being managed for the following: #. Sepsis: #. Complicated UTI (urinary tract infection)/ureteral ileal conduit associated UTI Sent from [facility] 06/07 for further evaluation of subjective fevers, generalized weakness and was found to have sepsis 2/2 complicated UTI in the ED. Pt has urostomy bag in situ. At presentation - Afebrile, BP stable, wbc 16.88k, procal 2.01, lactate 2.1 -> 1.9 Sepsis resolved, patient doing better, WBC trending down. UA grossly abnormal, started on empiric Rocephin which will be continued Patient completed course of ceftriaxone on 06/[address] abd/pelvis without acute changes or evidence of infection. #. Acute kidney injury superimposed on chronic kidney disease: Cr 1.9 (baseline ~1 but trending upwards for past month) in setting of poor PO intake, recently started on Keytruda Creatinine uptrending, continue with IV fluids. Held losartan. Continue to monitor BMP daily. #. Dry mouth She reports dry mouth since coming to the hospital this time. Awaiting LEONARDA, suspect immunologic process versus environmental [patient does not have a problem with swallowing food and does not complain of dry eyes]. Patient will need follow-up with PCP as an outpatient. #. Bladder cancer: Diagnosed in 2018 with recurrence S/[place] [facility] [place] [address] Paul Galicia of medical oncology and Dr. Amrita Galicia for rad onc Started Keytruda 3 weeks ago and was scheduled for first palliative external beam radiation therapy to recurrent pelvic mass on the day of presentation Recently established with [facility] palliative care as well to readdress goals Radiation oncology consulted, patient undergoing palliative radiation while inpatient. GI recommending stopping Keytruda given her continuous elevation in LFTs. Will communicate this to her oncologist Dr. Galicia. #. Cancer related pain: #. Constipation due to opiates Continue oxycodone 10mg Q4H PRN, adding lidocaine patch Family interested in medical marijuana - will discuss with OP palliative care Avoiding Tylenol given worsening transaminitis, nsaids given YAKELIN Will consider Relistor if patient continues to be constipated despite adequate oral intake. 06/12, patient reported increased right belly pain, CT abdomen pelvis ordered, formal read pending IV as needed pain meds, consult pain management. Trial of Relistor for 3 to 4 days. #. Elevated LFTs: Up trending LFTs over the past month - patient inadvertently taking too much tylenol (1,000mg Q6H) but recently decreased to 500mg Q6H At presentation - tbili 1.3, AST 133, ALT 106, alk phos 479 Keytruda possibly contributing GI consulted: Likely Keytruda contributing on background of metastatic disease, recommends discontinuing Keytruda, MRCP to verify no ductal abnormalities. Viral and autoimmune serology to follow. LEONARDA pending Hold tylenol for now, trend CMP 06/12 MRCP: Formal read pending #. Hypertension: Fairly under control Continue Amlodipine, Toprol and losartan DVT Ppx: SQ heparin Code status: DNR/DNI PCP: Sherin Rivera Dispo: Admitted to PCU. Discharge planning ordered. OT recommending 24/7 supervision and home health OT. Possible discharge after GI clearance. Patient reports that her son has just come out of rehab, and She won't get enough care at her home. Indicated that she wants to go to rehab. CM working on [facility]. Admission and Anticipated Discharge Date Admission Date: June 07, 2021 Subjective Patient was lying in bed, on room air, in mild distress, no new events overnight. Patient reporting constant pelvic/perineal pain which is increased today to 10/10. She has been getting inpatient radiation. Denies headache/dizziness/other review of symptoms. Talked with her grandson at bedside and updated about her status and plan of care. He voiced understanding and was agreeable. Physical Exam Physical Exam: GENERAL: Alert and oriented x3. mild distress, on RA. HEENT: No pallor, no icterus. Pupils equal, round and reactive to light. Oral mucosa moist. NECK: No JVD, no neck masses. HEART: S1 and S2 heard. Regular rate and rhythm. Systolic murmur at pulmonic area, no gallop. RESPIRATORY SYSTEM: Normal AP diameter. No accessory muscle use. No wheezing, no crackles. ABDOMEN: Soft, bowel sounds present, right upper quadrant tenderness, no distention. Right urostomy bag with urine collection. CENTRAL NERVOUS SYSTEM: No facial droop. Speech is clear. Obeys simple co mmands. Moves extremities. EXTREMITIES: No edema, no erythema seen. Results & Data Results & Data ([facility]) Vital Signs (Past 12 Hours) Vital Signs Temp Pulse Pulse Resp BP Pulse Ox 06/12/21 16:15 36.9 C 96 H 18 131/70 93 06/12/21 14:20 97 H 06/12/21 11:54 36.5 C 95 H 18 126/64 91 06/12/21 07:50 90 06/12/21 06:22 36.5 C 90 18 131/68 92
--- NOTE | 2021-06-12 20:02 | Magnetic Resonance Report ---
MR MRCP HISTORY: 81 years-old Female elevated LFTs, verify no choledocholithiasis acutely elevated LFTs with chronic nausea and vomiting. History of bladder cancer COMPARISON: CT abdomen and pelvis of same day and also 06/07/2021 TECHNIQUE: MRCP was obtained without the use of IV contrast according to institutional protocol. FINDINGS: The black off worker localizer images demonstrate hepatomegaly. Hepatic cysts are noted along with diffuse heter ogeneity of the liver and scattered hepatic lesions suspicious for metastasis. Mild marginal nodulari ty of the liver. Bibasilar pulmonary metastasis with small pleural effusions. Atrophic left kidney. B irena wall edema with trace abdominal pelvic ascites. Motion degraded exam. Distended gallbladder. No cholelithiasis or choledocholithiasis identified. The common bile duct is normal measuring 6 mm. The pancreatic duct measures within the upper limits of n ormal at 3 mm. No pancreatic divisum identified. No intrahepatic biliary ductal dilation. IMPRESSION: 1. Distended gallbladder. No cholelithiasis, biliary ductal dilation or choledocholithiasis. 2. Pulmonary and hepatic metastasis are better characterized on the CT study of same day. 3. Small pleural effusions with body wall edema and trace abdominopelvic ascites. ACT 112: Negative or not required by law. The above report was generated using voice recognition software. It may contain grammatical, syntax o r spelling errors. Electronically signed by: Brody Loya M.D. 06/12/2021 8:00 PM
--- NOTE | 2021-06-12 20:15 | CT Scan Report ---
ABDOMEN AND PELVIS CT WITHOUT CONTRAST CT DOSE: 1299.99 mGycm HISTORY: Acute generalized abdominal pain. Prior cystectomy with ileal conduit. History of bladder ca ncer acute worsening of belly pain. TECHNIQUE: Multiaxial CT images of the abdomen and pelvis were performed without contrast. A dose lo wering technique was utilized adhering to the principles of ALARA. COMPARISON STUDY: MRCP of same day, CT abdomen and pelvis 06/07/2021, CT abdomen and pelvis from [facility] 05/05/2021 (images only without report). FINDINGS: Limited exam secondary to upper extremity positioning, lack of IV contrast and respiratory motion art ifact. Trace pleural effusions with dependent bibasilar consolidation. Bibasilar solid pulmonary nodu les measure up to 1.5 cm on the right. Small pleural effusions with mild dependent bibasilar consolid ation. Mild cardiomegaly with coronary artery calcifications. Unremarkable spleen. Mild pancreatic atrophy. Unremarkable adrenal glands. Scattered hepatic cysts ar e redemonstrated. Additionally, there are scattered ill-defined hepatic lesions measuring up to 3 cm within the inferior right hepatic lobe and 2.1 cm within the hepatic dome which were not definitively seen on the 05/05/2021 exam. Moderately distended gallbladder with pericholecystic edema. Bilateral scattered renal hypodensities are suggestive of probable cysts. Atrophic left kidney. Cyste ctomy with ileal conduit. 10 mm right inguinal chain lymph node. There are a few scattered small none nlarged perirectal lymph nodes. Rectal wall thickening with perirectal inflammatory stranding. Severa l additional prominent lymph nodes of the pelvic mesentery are noted as seen on image 361 series 3. Small hiatal hernia. No bowel obstruction. Rectal wall thickening as above. Colonic diverticulosis. M oderate fecal retention. The appendix is reportedly surgically absent. Mild generalized body wall vianney ma. Degenerative changes of the spine, pelvis and hips. No acute fracture. Lumbar levoscoliosis. IMPRESSION: 1. Bibasilar solid pulmonary nodules suggestive of pulmonary metastasis have progressively worsened f rom 05/05/2021. There are new small pleural effusions with mild dependent bibasilar consolidation sugge stive of atelectasis. 2. Numerous ill-defined scattered hypodense hepatic lesions suggestive of metastasis appear to be new from 05/05/2021. 3. Prior cystectomy with ileal conduit. There are a few prominent lower mesenteric lymph nodes which should be evaluated on follow-up to exclude lymphatic metastasis. 4. Rectal wall thickening with perirectal inflammation and prominent perirectal lymph nodes is compat ible with a nonspecific proctitis. 5. Distended gallbladder with trace upper abdominal ascites. Please refer to the MRCP study of same d ay for additional findings. ACT 112: Negative or not required by law. The above report was generated using voice recognition software. It may contain grammatical, syntax o r spelling errors. Electronically signed by: Brody Loya M.D. 06/12/2021 8:14 PM
[2021-06-12] MEDS: METOPROLOL SUCC 25MG EXT REL TAB PO SCH (20:45)
[2021-06-12] MEDS: CYANOCOBALAMIN 500 MCG TABLET (VITAMIN B-12) PO SCH (20:46)
[2021-06-12] MEDS: amLODIPine BESYLATE 5 MG TAB PO SCH (20:46)
[2021-06-12] MEDS: oxyCODONE HCL IR 5 MG TAB (IMMEDIATE RELEASE) PO PRN (21:01)
[2021-06-12] MEDS ORDERED: HEPARIN 100 UNIT/ML 5ML FLUSH FLUSH PRN (22:26)
--- NOTE | 2021-06-12 23:05 | Communication Note ---
Date of Service: June 12, 2021 11 PM Made aware by RN off increased abdominal distention with some guarding. No fever, no chills. AP Abdominal pain Trace upper abdominal ascites on imaging ? SBP Ceftriaxone, Albumin for now Diagnostic paracentesis if possible Will relay to AM provider.
[2021-06-13] MEDS: ALBUMIN 25% 12.5 GM/50 ML VIAL IV SCH ×5 (00:44→17:25)
[2021-06-13 02:35] LABS: Hepatitis A Antibody IgM NON-REACTIVE (NON-REACTIVE); Hepatitis B Core Antibody IgM NON-REACTIVE (NON-REACTIVE)
[2021-06-13] MEDS: HEPARIN SOD 5,000 UNIT/0.5 ML VIAL SQ SCH ×3 (05:50→21:16)
[2021-06-13 05:55] LABS: Hematocrit (blood only) 32.7 % (37-47); Hemoglobin 10.5 g/dL (12.0-16.0); Mean Corpuscular Hemoglobin 29.6 pg (25-34); Mean Corpuscular Hgb Conc 32.1 g/dL (32-36); Mean Corpuscular Volume 92.1 fL (80-100); Mean Platelet Volume 10.4 fL (7.4-10.4); Platelet Count 361 K/uL (130-400); RDW Coefficient of Variation 14.9 % (11.5-14.5); RDW Standard Deviation 50.6 fL (36.4-46.3); Red Blood Count 3.55 M/uL (4.2-5.4); White Blood Count 14.56 K/uL (4.8-10.8)
[2021-06-13 06:16] LABS: Albumin Level 2.3 gm/dl (3.4-5.0); BUN Creatinine Ratio 33.3 (10-20); Calcium 8.6 mg/dl (8.5-10.1); Creatinine Clr Calc Pharmacy 27.3 ml/min; Est GFR (African American) 33.2 ml/min; Est GFR (Non-African American) 28.6 ml/min; Potassium 4.2 mmol/L (3.5-5.1)
[2021-06-13 06:18] LABS: Albumin Globulin Ratio 0.8 (0.9-2); Bilirubin,Total 1.2 mg/dl (0.2-1); Total Protein 5.3 gm/dl (6.4-8.2)
[2021-06-13] MEDS: LACTULOSE SYRUP 30 GM/45 ML UDP PO SCH ×3 (09:16→21:14)
[2021-06-13] MEDS: METHYLNALTREXONE BROMIDE 12 MG/0.6 ML VIAL SQ SCH (09:17)
[2021-06-13] MEDS: SENNA 8.6 MG TAB PO SCH ×2 (09:17→21:13)
[2021-06-13] MEDS: PANTOprazole 40 MG TAB PO SCH (09:17)
[2021-06-13] MEDS: LIDOCAINE 5% 1 PATCH TD SCH (09:18)
[2021-06-13] MEDS: POLYETHYLENE (MIRALAX) 17 GM PACK PO SCH (10:18)
[2021-06-13] MEDS: oxyCODONE HCL IR 5 MG TAB (IMMEDIATE RELEASE) PO PRN (10:29)
--- NOTE | 2021-06-13 18:08 | Hospitalist Progress Note ---
Date of Service June 13, 2021 Assessment & Plan (1) Sepsis: (2) Complicated UTI (urinary tract infection): (3) Bladder cancer: Plan: 81yo F with a PMH of recurrent bladder cancer, metastasis to lung, cancer related pain, opioid induced, constipation, CKD III, HTN was sent 06/07 from [email or web address] for further evaluation of subjective fevers, generalized weakness. Follows with Dr. Paul Galicia of medical oncology and Dr. Amrita Galicia for rad onc. She is being managed for the following: #. Sepsis: #. Complicated UTI (urinary tract infection)/ureteral ileal conduit associated UTI Sent from [facility] [[email or web address] 06/07 for further evaluation of subjective fevers, generalized weakness and was found to have sepsis 2/2 complicated UTI in the ED. Pt has urostomy bag in situ. At presentation - Afebrile, BP stable, wbc 16.88k, procal 2.01, lactate 2.1 -> 1.9 Sepsis resolved, patient doing better, WBC started uptrending UA grossly abnormal, started on empiric Rocephin which will be continued Rocephin resumed, continue with Rocephin CXR and CT abd/pelvis without acute changes or evidence of infection. 06/12 CTAP positive for distended gallbladder with trace upper abdominal ascites 06/12 ERCP showed distended gallbladder but no cholelithiasis/biliary duct dilation or choledocholithiasis. #. Acute kidney injury superimposed on chronic kidney disease: Cr 1.9 (baseline ~1 but trending upwards for past month) in setting of poor PO intake, recently started on Keytruda Creatinine uptrending, continue with IV fluids. Held losartan. Continue to monitor BMP daily. #. Dry mouth She reports dry mouth since coming to the hospital this time. Awaiting LEONARDA, suspect immunologic process versus environmental [patient does not have a problem with swallowing food and does not complain of dry eyes]. Patient will need follow-up with PCP as an outpatient. #. Bladder cancer: Diagnosed in 2018 with recurrence S/p cystectomy with ureteroileal conduit at [facility] [place] in November [address] Paul Galicia of medical oncology and Dr. Amrita Galicia for rad onc Started Keytruda 3 weeks ago and was scheduled for first palliative external beam radiation therapy to recurrent pelvic mass on the day of presentation Recently established with [facility] palliative care as well to readdress goals Radiation oncology consulted, patient undergoing palliative radiation while inpatient. GI recommending stopping Keytruda given her continuous elevation in LFTs. Will communicate this to her oncologist Dr. Galicia. Patient is having increasing pain, I believe that she will get more improvement after few series of palliative radiation and palliative care has been consulted while in hospital per patient wish due to worsening condition. #. Cancer related pain: #. Constipation due to opiates Continue oxycodone 10mg Q4H PRN, adding lidocaine patch Family interested in medical marijuana - will discuss with OP palliative care Avoiding Tylenol given worsening transaminitis, nsaids given YAKELIN Will consider Relistor if patient continues to be constipated despite adequate oral intake. 06/12, patient reported increased right belly pain, CT abdomen pelvis ordered, formal read pending IV as needed pain meds, consult pain management. Trial of Relistor for 3 to 4 days. Patient moved a bit of fall today. Continue with pain medication. #. Elevated LFTs: Up trending LFTs over the past month - patient inadvertently taking too much tylenol (1,000mg Q6H) but recently decreased to 500mg Q6H At presentation - tbili 1.3, AST 133, ALT 106, alk phos 479 Keytruda possibly contributing GI consulted: Likely Keytruda contributing on background of metastatic disease, recommends discontinuing Keytruda, MRCP to verify no ductal abnormalities. Viral and autoimmune serology to follow. LEONARDA pending Hold tylenol for now, trend CMP 06/12 MRCP: Distended gallbladder. No cholelithiasis, biliary ductal dilation or choledocholithiasis. #. Hypertension: Fairly under control Continue Amlodipine, Toprol and hold losartan until YAKELIN resolves DVT Ppx: SQ heparin Code status: DNR/DNI PCP: Sherin Rivera Dispo: Admitted to PCU. Discharge planning ordered. OT recommending 24/7 supervision and home health OT. Patient reports that her son has just come out of rehab, and She won't get enough care at her home. Indicated that she wants to go to rehab. CM working on [employer]. Admission and Anticipated Discharge Date Admission Date: June 07, 2021 Subjective Patient was lying in bed, on room air, in mild distress, CTAP overnight for increasing belly pain. Patient reporting constant pelvic/perineal pain which is moving towards mid belly. She has been getting inpatient radiation during the weekdays. Denies headache/dizziness/other review of symptoms. Called her son Everton ([phone]] 2 times today, went to [employer], left message. Physical Exam Physical Exam: GENERAL: Alert and oriented x3. mild distress, on RA. HEENT: No pallor, no icterus. Pupils equal, round and reactive to light. Oral mucosa moist. NECK: No JVD, no neck masses. HEART: S1 and S2 heard. Regular rate and rhythm. Systolic murmur at pulmonic area, no gallop. RESPIRATORY SYSTEM: Normal AP diameter. No accessory muscle use. No wheezing, no crackles. ABDOMEN: Soft, bowel sounds present, right upper quadrant tenderness, no distention. Right urostomy bag with urine collection. No rebound tenderness. CENTRAL NERVOUS SYSTEM: No facial droop. Speech is clear. Obeys simple commands. Moves extremities. EXTREMITIES: No edema, no erythema seen. Results & Data Results & Data ([facility]) Vital Signs (Past 12 Hours) Vital Signs Temp Pulse Pulse Resp BP Pulse Ox 06/13/21 15:41 36.5 C 95 H 16 147/67 H 94 06/13/21 09:00 88 06/13/21 07:09 36.4 C L 87 16 145/68 H 90
[2021-06-13] MEDS: METOPROLOL SUCC 25MG EXT REL TAB PO SCH (21:13)
[2021-06-13] MEDS: CYANOCOBALAMIN 500 MCG TABLET (VITAMIN B-12) PO SCH (21:14)
[2021-06-13] MEDS: amLODIPine BESYLATE 5 MG TAB PO SCH (21:14)
[2021-06-13] MEDS: MoRPHine SULFATE 2 MG/ML CARP IV PRN (21:26)
[2021-06-14] MEDS: cefTRIAXone SODIUM 1,000 MG in DEXTROSE 5% 50 ML IV SCH (00:06)
[2021-06-14] MEDS: ALBUMIN 25% 12.5 GM/50 ML VIAL IV SCH ×4 (00:07→17:48)
[2021-06-14] MEDS: HEPARIN SOD 5,000 UNIT/0.5 ML VIAL SQ SCH ×3 (05:33→22:55)
[2021-06-14 06:10] LABS: Hematocrit (blood only) 34.3 % (37-47); Hemoglobin 11.5 g/dL (12.0-16.0); Mean Corpuscular Hgb Conc 33.5 g/dL (32-36); Mean Corpuscular Volume 89.6 fL (80-100); Mean Platelet Volume 10.9 fL (7.4-10.4); Platelet Count 369 K/uL (130-400); RDW Standard Deviation 49.3 fL (36.4-46.3); Red Blood Count 3.83 M/uL (4.2-5.4); White Blood Count 22.23 K/uL (4.8-10.8)
[2021-06-14 06:17] LABS: BUN Creatinine Ratio 39.2 (10-20); Calcium 9.2 mg/dl (8.5-10.1); Creatinine Clr Calc Pharmacy 30.7 ml/min; Est GFR (African American) 38.2 ml/min; Est GFR (Non-African American) 32.9 ml/min; Magnesium 2.4 mg/dl (1.8-2.4)
[2021-06-14 06:18] LABS: Phosphorus 1.9 mg/dl (2.5-4.9)
[2021-06-14] MEDS ORDERED: HYDROmorphone Bolus from PCA IV PRN (08:24)
[2021-06-14] MEDS ORDERED: HYDROmorphone PCA 30 MG/30 ML IV PRN (08:24)
[2021-06-14] MEDS ORDERED: SIMETHICONE 80 MG CHEW PO PRN (08:24)
[2021-06-14] MEDS ORDERED: NALOXONE HCL 0.4 MG/1 ML VIAL/CARP IV PRN (08:24)
--- NOTE | 2021-06-14 08:31 | Pain Management Consultation ---
Date of Consultation June 14, 2021 Assessment & Plan (1) Cancer related pain: (2) CKD (chronic kidney disease), stage III: (3) Complicated UTI (urinary tract infection): (4) Bladder cancer: 1. Recommend initiation of hydromorphone CONVERSION DEVELOPER to calculate opiate need. Patient was counseled on what a CONVERSION DEVELOPER is and how to utilize. Recommend consideration of fentanyl patches for basal pain relief given that patient has difficulty remembering or asking for additional opiates for breakthrough pain relief. In order for additional IV hydromorphone was written prior to activity or as need arises. 2. Recommend continued utilization of oxycodone 5 mg p.o. every 4 as needed for breakthrough pain 3. Will discontinue morphine to minimize metabolites in setting of chronic kidney disease stage III. 4. Additional bowel regimen as well as simethicone were written today to assist with opioid-induced constipation. Recommend continuation of Relistor as needed. 5. No interventional pain management options are available for this patient currently given complicated UTI status. May revisit in the future if the patient is a candidate for superior hypogastric versus ganglion impar blocks. 6. Agree with palliative care consultation to establish goals of care. 7. Thank you very much for this consultation we will follow up with the patient tomorrow. History of Present Illness Attending Physician: Luis Angel Hu MD History of Present Illness 81-year-old female who presented to [facility] through the cancer center on 06/07/2021 with a history of recurrent bladder cancer, metastasis to lung, cancer related pain, opioid induced, constipation, chronic kidney disease stage III to evaluate fevers, generalized weakness and was found to have a complicated UTI currently treated with ceftriaxone. She states that she is seeing palliative care at [facility] and had been doing relatively well on any outpatient regimen of Tylenol and oxycodone 10 mg p.o. nightly but has had increasing pain particularly over her lower abdomen but with bilateral upper quadrant pain at times as well. She notes that with the addition of Relistor and a bowel movement yesterday she has had mild relief of pain but still feels that her pain is not adequately controlled. She states that the pain is sharp and cramping rating at 9 out of 10 currently typically between 7-10 out of 10. She notes generalized weakness as well and difficulty with remembering to ask for pain medications and would like consideration of a long-acting opiate. She notes constipation, very mild sedation, nausea as a side effect of her current opiate regimen. She is scheduled for radiation therapy this a.m. Pain Assessment Full Body Front + Back: 1. [facility] Combined Pain Scale: 9-Agonizing - Cannot function. Uncontrolled screaming. Pain scale - at its best (0-10): 7 Pain scale - at its worst (0-10): 10 Allergies Allergy/AdvReac Type Severity Reaction Status Date / Time ciprofloxacin [From Cipro] Allergy Mild Unknown Verified 06/07/21 11:48 levofloxacin [From Levaquin] Allergy Mild Unknown Verified 06/07/21 11:48 methohexital [From Brevital] Allergy Mild Unknown Verified 06/09/21 20:57 Penicillins Allergy Mild Unknown Unverified 06/07/21 11:48 Sulfa (Sulfonamide Allergy Mild Unknown Unverified 06/07/21 11:48 Antibiotics) Home Medications Medication Instructions Recorded Confirmed Type cyanocobalamin (vitamin B-12) 1,000 mcg PO HS 11/26/20 06/07/21 History 1,000 mcg tablet (Vitamin B-12) losartan 100 mg tablet 100 mg PO HS 11/26/20 06/07/21 History metoprolol succinate 25 mg 25 mg PO HS tab 05/28/21 06/07/21 History tablet,extended release 24 hr oxycodone 10 mg tablet 10 mg PO Q4H PRN 05/28/21 06/07/21 History acetaminophen 500 mg tablet 500 mg PO Q6H PRN 06/07/21 06/07/21 History (Tylenol Extra Strength) amlodipine 5 mg tablet (Norvasc) 5 mg PO HS 06/07/21 06/07/21 History ondansetron HCl 8 mg tablet 8 mg PO Q8H PRN 06/07/21 06/07/21 History pantoprazole 20 mg tablet,delayed 20 mg PO DAILY 06/07/21 06/07/21 History release polyethylene glycol 3350 17 17 g PO DAILY 06/07/21 06/07/21 History gram/dose oral powder (Miralax) sennosides 8.6 mg tablet (senna) 8.6 mg PO BID 06/07/21 06/07/21 History Pain History Pain Intensity Pain scale - at its best (0-10): 7 Pain scale - at its worst (0-10): 10 Patient History Medical History Bladder cancer (~02/2018) CKD (chronic kidney disease), stage III Generalized weakness Hiatal hernia s/p Repair History of chemotherapy 07/21/2020 - 10/07/2020 - Gemcitabine + Carboplatin Local BCG + Mitomycin BCG (Intravescial) Planning - Keytruda q 21 days (with Dr. Alfie Galicia) Hypertension Port-A-Cath in place Retinal lesion "treat localized" Surgical History History of cataract extraction History of laparoscopic appendectomy History of repair of hiatal hernia (2016) History of tonsillectomy and adenoidectomy History of total hysterectomy with bilateral salpingo-oophorectomy (BSO) (11/11/20) History of transurethral destruction of bladder lesion x 5 S/P ileal conduit (11/11/20) Family History Mother , Passed age 89 of "brain bleeding" complications No problems noted. Father , Passed age 86 of natural causes Prostate cancer, Onset Age: 55 Radiation - did well after Brother , Passed age 4 of Hydrocephalus No problems noted. Brother , Passed age 21 of drug overdose No problems noted. Sister Breast cancer, Onset Age: 56 Son No problems noted. Daughter No problems noted. 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 Eyes: Pupils are equally round and reactive to light with normal size pupils, eyelids appear normal Ear, nose, mouth, and throat: Dry oral membranes, lips and tongues appear dry, no external ear abnormalities are noted. Teeth on lower jaw are in poor repair. Neck: The trachea is midline without deviation and no thyromegaly is noted Respiratory: Slightly increased work of breathing noted but do not appreciate any audible wheezes CV: Normal S1 and S2 some edema noted bilateral lower extremities Chest: Deferred GI/abdomen: Significantly tender predominantly over her absent bladder and right upper quadrant with generalized distention. Musculoskeletal: Head is normocephalic and atraumatic, gait not observed. Cervical: Lordotic curve: Normal Range of motion is normal with extension, flexion, side-bending, rotation Strength: Strength is grossly equal bilaterally with 4+ out of 5 strength in all planes Lumbar: Strength: Strength is grossly equal bilaterally with 4 out of 5 strength in all planes Sensation of lower extremities: Intact bilaterally Skin: No rashes, lesions, ulcers, or induration noted Neuro: No nystagmus noted, the tongue is midline, the patient is able to rotate their head bilaterally : Deferred Results (Pain Clinic) Diagnostic Review MRI Findings: 05/17/21 MRI OF THE BRAIN WITHOUT AND WITH IV CONTRAST CLINICAL HISTORY: Vertigo. Bladder cancer. Evaluate for intracranial metastases. COMPARISON STUDY: Head CT November 26, 2020. TECHNIQUE: Utilizing a 1.5 Arianne magnet and dedicated coil, multiplanar, multiecho imaging of the brain was performed pre and postcontrast administration . IV administration of 7 mL of Gadavist contrast was uneventful. Thin cut T1 post contrast imaging was performed with multiplanar reformats. FINDINGS: There are no foci of restricted diffusion to suggest acute infarct. No acute intracranial hemorrhage, midline shift or mass effect is present. Vent ricular system is unremarkable. Basal cisterns are patent. There is mild atrophy. White matter T2 hyperintense foci suggest small vessel disease. There are old lacunar infarcts within the bilateral basal ganglia. No intracranial mass or pathologic enhancement is present. Calvarial signal is unremarkable. Orbits are unremarkable. There is no mastoid fluid. No cerebellopontine angle mass is noted. No abnormal enhancement within the internal artery canals is present. IMPRESSION: 1. No acute intracranial findings. 2. No evidence of metastatic disease. 3. White matter T2 hyperintense foci suggestive of small vessel disease. A few old lacunar infarcts within the bilateral basal ganglia. 06/12/21 MR MRCP HISTORY: 81 years-old Female elevated LFTs, verify no choledocholithiasis acutely elevated LFTs with chronic nausea and vomiting. History of bladder cancer COMPARISON: CT abdomen and pelvis of same day and also 06/07/2021 TECHNIQUE: MRCP was obtained without the use of IV contrast according to institutional protocol. FINDINGS: The bombsight specialist localizer images demonstrate hepatomegaly. Hepatic cysts are noted along with diffuse heterogeneity of the liver and scattered hepatic lesions s uspicious for metastasis. Mild marginal nodularity of the liver. Bibasilar pulmonary metastasis with small pleural effusions. Atrophic left kidney. Body wall edema with trace abdominal pelvic ascites. Motion degraded exam. Distended gallbladder. No cholelithiasis or choledocholithiasis identified. The common bile duct is normal measuring 6 mm. The pancreatic duct measures within the upper limits of normal at 3 mm. No pancreatic divisum identified. No intrahepatic biliary ductal dilation. IMPRESSION: 1. Distended gallbladder. No cholelithiasis, biliary ductal dilation or choledocholithiasis. 2. Pulmonary and hepatic metastasis are better characterized on the CT study of same day. 3. Small pleural effusions with body wall edema and trace abdominopelvic ascites. CT Findings: 06/12/[address] WITHOUT CONTRAST CT DOSE: 1299.99 mGycm HISTORY: Acute generalized abdominal pain. Prior cystectomy with ileal conduit. History of bladder cancer acute worsening of belly pain. TECHNIQUE: Multiaxial CT images of the abdomen and pelvis were performed without contrast. A dose lowering technique was utilized adhering to the principles of ALARA. COMPARISON STUDY: MRCP of same day, CT abdomen and pelvis 06/07/2021, CT abdomen and pelvis from outside facility 05/05/2021 (images only without report). FINDINGS: Limited exam secondary to upper extremity positioning, lack of IV contrast and respiratory motion artifact. Trace pleural effusions with dependent bibasilar consolidation. Bibasilar solid pulmonary nodules measure up to 1.5 cm on the right. Small pleural effusions with mild dependent bibasilar consolidation. Mild cardiomegaly with coronary artery calcifications. Unremarkable spleen. Mild pancreatic atrophy. Unremarkable adrenal glands. Scattered hepatic cysts are redemonstrated. Additionally, there are scattered ill-defined hepatic lesions measuring up to 3 cm within the inferior right hepatic lobe and 2.1 cm within the hepatic dome which were not definitively seen on the 05/05/2021 exam. Moderately distended gallbladder with pericholecystic edema. Bilateral scattered renal hypodensities are suggestive of probable cysts. Atrophic left kidney. Cystectomy with ileal conduit. 10 mm right inguinal chain lymph node. There are a few scattered small nonenlarged perirectal lymph nodes. Rectal wall thickening with perirectal inflammatory stranding. Several additional prominent lymph nodes of the pelvic mesentery are noted as seen on image 361 series 3. Small hiatal hernia. No bowel obstruction. Rectal wall thickening as above. Colonic diverticulosis. Moderate fecal retention. The appendix is reportedly surgically absent. Mild generalized body wall edema. Degenerative changes of the spine, pelvis and hips. No acute fracture. Lumbar levoscoliosis. IMPRESSION: 1. Bibasilar solid pulmonary nodules suggestive of pulmonary metastasis have progressively worsened from 05/05/2021. There are new small pleural effusions with mild dependent bibasilar consolidation suggestive of atelectasis. 2. Numerous ill-defined scattered hypodense hepatic lesions suggestive of metastasis appear to be new from 05/05/2021. 3. Prior cystectomy with ileal conduit. There are a few prominent lower mesenteric lymph nodes which should be evaluated on follow-up to exclude lymphatic metastasis. 4. Rectal wall thickening with perirectal inflammation and prominent perirectal lymph nodes is compatible with a nonspecific proctitis. 5. Distended gallbladder with trace upper abdominal ascites. Please refer to the MRCP study of same day for additional findings.
[2021-06-14] MEDS: MoRPHine SULFATE 2 MG/ML CARP IV PRN (08:35)
[2021-06-14] MEDS: ONDANSETRON INJ 2 MG/ML 2 ML VIAL IV PRN (08:36)
[2021-06-14] MEDS ORDERED: SODIUM PHOSPHATE 3 MMOL/1 ML INFUSION IV STA (08:36)
[2021-06-14] MEDS: LIDOCAINE 5% 1 PATCH TD SCH (08:46)
[2021-06-14] MEDS: PANTOprazole 40 MG TAB PO SCH (08:47)
[2021-06-14] MEDS: SENNA 8.6 MG TAB PO SCH ×2 (08:47→21:11)
[2021-06-14] MEDS: METHYLNALTREXONE BROMIDE 12 MG/0.6 ML VIAL SQ SCH (08:49)
[2021-06-14] MEDS ORDERED: SODIUM PHOSPHATE 24 MMOL in SODIUM CHLORIDE 0.9% 500 ML IV ONE (09:00)
[2021-06-14] MEDS: LACTULOSE SYRUP 30 GM/45 ML UDP PO SCH ×3 (09:04→21:02)
[2021-06-14] MEDS: DOCUSATE SODIUM 100 MG CAP PO SCH ×2 (09:04→21:10)
[2021-06-14] MEDS: MAGNESIUM CITRATE 296 ML/BTL PO SCH (09:05)
[2021-06-14] MEDS: POLYETHYLENE (MIRALAX) 17 GM PACK PO SCH (09:06)
[2021-06-14] MEDS: metroNIDAZOLE 500 MG/100 ML BAG IV SCH ×2 (11:40→16:32)
[2021-06-14] MEDS: PILOCARPINE HCL 5 MG TABLET PO SCH ×2 (12:12→21:10)
--- NOTE | 2021-06-14 12:52 | Palliative Care Consultation ---
Date of Consultation June 14, 2021 Assessment & Plan (1) Cancer related pain: Started on hydromorphone METER TESTER PRIMARY per pain management. Given crampy nature of pain, could consider antispasmodic if needed. (2) Palliative care encounter: I spoke with her son, Jadon, on the phone. He will be sending a copy of her advance directive for review and to be scanned into her chart. 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 She has been very independent and wanting to be involved in her care. I did talk to Ольга about her goals for care. She was able to tell me that she did not want CPR but due to lethargy, was not able to have a more in depth goals of care discussion. Jadon expressed concerns about having to make difficult decisions for her care as he is concerned about her functional decline and poor appetite. We reviewed her current status, which he has also discussed with Dr. Hu. We reviewed METER TESTER PRIMARY for pain management and options for pain management moving forward, hopefully with long acting opioid and adjuvants as appropriate. Hopefully, as her symptoms are better controlled, she will be better able to participate in discussion to clarify her goals for her care. Per Jadon, she has not discussed this much with them. Palliative care will follow. (3) Bladder cancer: (4) Acute kidney injury superimposed on chronic kidney disease: (5) Complicated UTI (urinary tract infection): (6) Sepsis: History of Present Illness Reason for Consultation: goals of care Requesting Physician: Dr. Hu Attending Physician: Luis Angel Hu MD History of Present Illness 81 yo lady with bladder cancer originally diagnosed in 2018. Unfortunately, she had recurrence with cystectomy and ileal conduit in November of this year. She has been followed by Dr. Galicia at [facility] and has been on keytruda, though that has been stopped during her admission due to elevated liver enzymes. She also started palliative radiation therapy today. She has known lung metastases with bibasilar nodules and small pleural effusions, as well as hepatic metastases and mesenteric lymphadenopathy. She was admitted with increased weakness and fatigue and is being treated for UTI, sepsis and YAKELIN. She has been complaining of cramping pain in her bladder and has been seen by [facility]. She does recall seeing them and telling them that she did not want CPR but is fuzzy on further details. She has been seen by pain management today and is started on hydromorphone METER TESTER PRIMARY for pain management. She had been taking oxycodone and lidocaine patch as an outpatient. While she is able to provide information, she is lethargic and tells me that she is not able to discuss goals of care at this time. Allergies Allergy/AdvReac Type Severity Reaction Status Date / Time ciprofloxacin [From Cipro] Allergy Mild Unknown Verified 06/07/21 11:48 levofloxacin [From Levaquin] Allergy Mild Unknown Verified 06/07/21 11:48 methohexital [From Brevital] Allergy Mild Unknown Verified 06/09/21 20:57 Penicillins Allergy Mild Unknown Unverified 06/07/21 11:48 Sulfa (Sulfonamide Allergy Mild Unknown Unverified 06/07/21 11:48 Antibiotics) Home Medications Medication Instructions Recorded Confirmed Type cyanocobalamin (vitamin B-12) 1,000 mcg PO HS 11/26/20 06/07/21 History 1,000 mcg tablet (Vitamin B-12) losartan 100 mg tablet 100 mg PO HS 11/26/20 06/07/21 History metoprolol succinate 25 mg 25 mg PO HS tab 05/28/21 06/07/21 History tablet,extended release 24 hr oxycodone 10 mg tablet 10 mg PO Q4H PRN 05/28/21 06/07/21 History acetaminophen 500 mg tablet 500 mg PO Q6H PRN 06/07/21 06/07/21 History (Tylenol Extra Strength) amlodipine 5 mg tablet (Norvasc) 5 mg PO HS 06/07/21 06/07/21 History ondansetron HCl 8 mg tablet 8 mg PO Q8H PRN 06/07/21 06/07/21 History pantoprazole 20 mg tablet,delayed 20 mg PO DAILY 06/07/21 06/07/21 History release polyethylene glycol 3350 17 17 g PO DAILY 06/07/21 06/07/21 History gram/dose oral powder (Miralax) sennosides 8.6 mg tablet (senna) 8.6 mg PO BID 06/07/21 06/07/21 History Patient History Medical History Bladder cancer (~02/2018) CKD (chronic kidney disease), stage III Generalized weakness Hiatal hernia s/p Repair History of chemotherapy 07/21/2020 - 10/07/2020 - Gemcitabine + Carboplatin Local BCG + Mitomycin BCG (Intravescial) Planning - Keytruda q 21 days (with Dr. Alfie Galicia) Hypertension Port-A-Cath in place Retinal lesion "treat localized" Surgical History History of cataract extraction History of laparoscopic appendectomy History of repair of hiatal hernia (2016) History of tonsillectomy and adenoidectomy History of total hysterectomy with bilateral salpingo-oophorectomy (BSO) (11/11/20) History of transurethral destruction of bladder lesion x 5 S/P ileal conduit (11/11/20) Family History Mother , Passed age 89 of "brain bleeding" complications No problems noted. Father , Passed age 86 of natural causes Prostate cancer, Onset Age: 55 Radiation - did well after Brother , Passed age 4 of Hydrocephalus No problems noted. Brother , Passed age 21 of drug overdose No problems noted. Sister Breast cancer, Onset Age: 56 Son No problems noted. Daughter No problems noted. 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 How many Children do You have: 4 Feels Safe at Home: Yes Safety Concerns: Feels Safe At This Time Childhood Exposure to Second-Hand Smoke: Yes caffeine: Yes (1 cup of coffee/day ) during the past year weight has: decreased > 10 lbs Dental Care, Regularly: Yes Assistive Devices: None Review of Systems Review of Systems: [place] Symptom Assessment Scale Pain 1/3 Dyspnea 0/3 Fatigue 2/3 Nausea 0/3 Anxiety 1/3 Drowsiness 1/3 Palliative Performance Score 30% Physical Exam Constitutional: + ill appearing ENMT: Mouth: + dry oral mucous membranes Respiratory: normal respiratory effort; no labored breathing Cardiovascular: Rate/Rhythm: regular rate and regular rhythm Neurologic: lethargic, not confused Results & Data ([facility]) Vital Signs (Past 12 Hours) Vital Signs Temp Pulse Pulse Resp BP BP Pulse Ox 06/14/21 10:52 97.9 F 115 H 18 160/68 H 94 06/14/21 08:00 110 H 06/14/21 07:55 97.7 F 114 H 18 167/72 H 94 06/14/21 04:08 97.7 F 102 H 18 159/71 H 93 PG Care Time/CCT Total # of Minutes Spent Total Time Spent: 80 Total Time Spent with Patient: Total time spent is greater than 50% in coordination of care (as documented) at patient's floor/unit and/or counseling patient: symptom management, code status, goals of care, family education and support Coding Level of Care Code 20047 Initial Inpt Care Lvl 3 Diagnoses Cancer related pain G89.3 Palliative care encounter Z51.5 Bladder cancer C67.9 Acute kidney injury superimposed on chronic kidney disease N17.9; N18.9 Complicated UTI (urinary tract infection) N39.0 Sepsis A41.9
--- NOTE | 2021-06-14 16:39 | Hospitalist Progress Note ---
Date of Service June 14, 2021 Assessment & Plan (1) Sepsis: (2) Complicated UTI (urinary tract infection): (3) Bladder cancer: Plan: 81yo F with a PMH of recurrent bladder cancer, metastasis to lung, cancer related pain, opioid induced, constipation, CKD III, HTN was sent 06/07 from [facility] for further evaluation of subjective fevers, generalized weakness. Follows with Dr. Paul Galicia of medical oncology and Dr. Amrita Galicia for rad onc. She is being managed for the following: #. Sepsis: #. Complicated UTI (urinary tract infection)/ureteral ileal conduit associated UTI Sent from [facility] 06/07 for further evaluation of subjective fevers, generalized weakness and was found to have sepsis 2/2 complicated UTI in the ED. Pt has urostomy bag in situ. At presentation - Afebrile, BP stable, wbc 16.88k, procal 2.01, lactate 2.1 -> 1.9 Sepsis resolved, patient was doing better, WBC started uptrending, right upper quadrant pain, suspect bowel infection though imaging negative, pro-Ben elevated, continue with Rocephin and metronidazole Patient recently treated for UTI sepsis with Rocephin and improved and then WBC/procalcitonin started uptrending CXR and CT abd/pelvis without acute changes or evidence of infection. 06/12 CTAP positive for distended gallbladder with trace upper abdominal ascites 06/12 ERCP showed distended gallbladder but no cholelithiasis/biliary duct dilation or choledocholithiasis. #. Acute kidney injury superimposed on chronic kidney disease: Cr 1.9 (baseline ~1 but trending upwards for past month) in setting of poor PO intake, recently started on Keytruda Creatinine downtrending, monitor off of IV fluids. Held losartan. Continue to monitor BMP daily. #. Dry mouth She reports dry mouth since coming to the hospital this time. Awaiting LEONARDA, suspect immunologic process versus environmental [patient does not have a problem with swallowing food and does not complain of dry eyes]. Patient will need follow-up with PCP as an outpatient. We will start her on pilocarpine while inpatient and see if it improves her symptoms of dry mouth. #. Bladder cancer: Diagnosed in 2018 with recurrence S/p cystectomy with ureteroileal conduit [place] [facility] [place] [address] Paul Galicia of medical oncology and Dr. Amrita Galicia for rad onc Started Keytruda 3 weeks ago and was scheduled for first palliative external beam radiation therapy to recurrent pelvic mass on the day of presentation Recently established with [facility] palliative care as well to readdress goals Radiation oncology consulted, patient undergoing palliative radiation while inpatient. GI recommending stopping Keytruda given her continuous elevation in LFTs. Will communicate this to her oncologist Dr. Galicia. Patient is having increasing pain, I believe that she will get more improvement after few series of palliative radiation and palliative care has been consulted while in hospital per patient wish due to worsening condition. #. Cancer related pain: #. Constipation due to opiates Continue oxycodone 10mg Q4H PRN, adding lidocaine patch Family interested in medical marijuana - will discuss with OP palliative care Avoiding Tylenol given worsening transaminitis, nsaids given YAKELIN Will consider Relistor if patient continues to be constipated despite adequate oral intake. 06/12, patient reported increased right belly pain, CT abdomen pelvis ordered, formal read pending IV as needed pain meds, consult pain management. Trial of Relistor for 3 to 4 days. Patient reports having bowel movement. Continue with pain medication. #. Elevated LFTs: Up trending LFTs over the past month - patient inadvertently taking too much tylenol (1,000mg Q6H) but recently decreased to 500mg Q6H At presentation - tbili 1.3, AST 133, ALT 106, alk phos 479 Keytruda possibly contributing GI consulted: Likely Keytruda contributing on background of metastatic disease, recommends discontinuing Keytruda, MRCP to verify no ductal abnormalities. Viral and autoimmune serology to follow. LEONARDA pending Hold tylenol for now, trend CMP 06/12 MRCP: Distended gallbladder. No cholelithiasis, biliary ductal dilation or choledocholithiasis. #. Hypertension: Fairly under control Continue Amlodipine, Toprol and hold losartan until YAKELIN resolves DVT Ppx: SQ heparin Code status: DNR/DNI PCP: Sherin Rivera Dispo: Admitted to PCU. Discharge planning ordered. OT recommending 24/7 supervision and home health OT. Patient reports that her son has just come out of rehab, and She won't get enough care at her home. Indicated that she wants to go to rehab. CM working on [employer]. 06/14 patient's son Everton updated about patient's status over the phone, answered all his questions, discussed plan of care going forward, he voiced understanding and was agreeable. Palliative care enters with family and the patient, will follow. Admission and Anticipated Discharge Date Admission Date: June 07, 2021 Subjective Patient was lying in bed, on room air, in mild distress, no new acute events overnight. Patient reporting constant pelvic/perineal pain and right belly pain. She has been getting inpatient radiation during the weekdays. Denies headache/dizziness/other review of symptoms. Called her son Everton ([phone]] today morning, updated about the current status of the patient, answered all of his questions, he voiced understanding and agreeable. Physical Exam Physical Exam: GENERAL: Alert and oriented x3. mild distress, on RA. HEENT: No pallor, no icterus. Pupils equal, round and reactive to light. Oral mucosa moist. NECK: No JVD, no neck masses. HEART: S1 and S2 heard. Regular rate and rhythm. Systolic murmur at pulmonic area, no gallop. RESPIRATORY SYSTEM: Normal AP diameter. No accessory muscle use. No wheezing, no crackles. ABDOMEN: Soft, bowel sounds present, right upper quadrant tenderness, no distention. Right urostomy bag with urine collection. No rebound tenderness. CENTRAL NERVOUS SYSTEM: No facial droop. Speech is clear. Obeys simple commands. Moves extremities. EXTREMITIES: No edema, no erythema seen. Results & Data Results & Data ([facility]) Vital Signs (Past 12 Hours) Vital Signs Temp Pulse Pulse Resp BP Pulse Ox 06/14/21 16:00 110 H 06/14/21 15:31 36.6 C 114 H 18 152/67 H 93 06/14/21 10:52 36.6 C 115 H 18 160/68 H 94 06/14/21 08:00 110 H 06/14/21 07:55 36.5 C 114 H 18 167/72 H 94
[2021-06-14] MEDS: SODIUM CHLORIDE 0.9% 1000ML 1,000 ML IV SCH (20:26)
[2021-06-14] MEDS: METOPROLOL SUCC 25MG EXT REL TAB PO SCH (21:03)
[2021-06-14] MEDS: amLODIPine BESYLATE 5 MG TAB PO SCH (21:03)
[2021-06-14] MEDS: CYANOCOBALAMIN 500 MCG TABLET (VITAMIN B-12) PO SCH (21:10)
[2021-06-14] MEDS: oxyCODONE HCL IR 5 MG TAB (IMMEDIATE RELEASE) PO PRN (21:12)
[2021-06-14] MEDS: MoRPHine SULFATE 4 MG/ML 1 ML CARP\\VIAL IV PRN (22:55)
[2021-06-15] MEDS: ALBUMIN 25% 12.5 GM/50 ML VIAL IV SCH ×4 (00:21→20:22)
[2021-06-15] MEDS: cefTRIAXone SODIUM 1,000 MG in DEXTROSE 5% 50 ML IV SCH (00:44)
[2021-06-15] MEDS: metroNIDAZOLE 500 MG/100 ML BAG IV SCH ×3 (01:36→17:11)
[2021-06-15] MEDS: MoRPHine SULFATE 4 MG/ML 1 ML CARP\\VIAL IV PRN (02:26)
[2021-06-15] MEDS: HEPARIN SOD 5,000 UNIT/0.5 ML VIAL SQ SCH ×3 (05:29→23:34)
[2021-06-15 05:41] LABS: Hematocrit (blood only) 35.3 % (37-47); Hemoglobin 11.6 g/dL (12.0-16.0); Mean Corpuscular Hemoglobin 29.9 pg (25-34); Mean Corpuscular Hgb Conc 32.9 g/dL (32-36); Platelet Count 296 K/uL (130-400); RDW Coefficient of Variation 15.1 % (11.5-14.5); RDW Standard Deviation 50.5 fL (36.4-46.3); Red Blood Count 3.88 M/uL (4.2-5.4); White Blood Count 22.78 K/uL (4.8-10.8)
[2021-06-15 06:01] LABS: BUN Creatinine Ratio 39.9 (10-20); Calcium 8.8 mg/dl (8.5-10.1); Creatinine Clr Calc Pharmacy 30.8 ml/min; Est GFR (African American) 39.5 ml/min; Est GFR (Non-African American) 34.1 ml/min; Potassium 3.8 mmol/L (3.5-5.1)
[2021-06-15] MEDS ORDERED: MoRPHine SULFATE 4 MG/ML 1 ML CARP\\VIAL IV PRN (08:02)
[2021-06-15] MEDS: PILOCARPINE HCL 5 MG TABLET PO SCH ×2 (08:41→23:03)
[2021-06-15] MEDS: LIDOCAINE 5% 1 PATCH TD SCH (08:41)
[2021-06-15] MEDS: PANTOprazole 40 MG TAB PO SCH (08:41)
[2021-06-15] MEDS: SENNA 8.6 MG TAB PO SCH ×2 (08:41→23:04)
[2021-06-15] MEDS: LACTULOSE SYRUP 30 GM/45 ML UDP PO SCH ×3 (08:46→23:03)
[2021-06-15] MEDS: DOCUSATE SODIUM 100 MG CAP PO SCH ×2 (08:46→23:03)
[2021-06-15] MEDS: METHYLNALTREXONE BROMIDE 12 MG/0.6 ML VIAL SQ SCH (08:46)
[2021-06-15] MEDS: POLYETHYLENE (MIRALAX) 17 GM PACK PO SCH (08:47)
[2021-06-15] MEDS: MAGNESIUM CITRATE 296 ML/BTL PO SCH (08:47)
--- NOTE | 2021-06-15 08:57 | Pain Management Progress Note ---
Date of Service June 15, 2021 Assessment & Plan (1) Cancer related pain: Plan: 1. IV Morphine was decreased from 3mg to 1mg due to over sedation and confusion. Use sparingly. 2. Continue oral Oxycodone 5mg x 4 hours PRN pain. 3. Patient does have Narcan prescribed. 4. No interventional procedures to offer at this time given her current UTI. 5. Will sign off on the patient given that palliative care is involved and can take over medication management. Please call with any questions or concerns. Admission and Anticipated Discharge Date Admission Date: June 07, 2021 Subjective Mrs. Tucker is an 81 year old female with a history of recurrent bladder cancer with metastasis to the lung. She has been confused and lethargic since yesterday. [employer] was never initiated due to this. Patient is confused and frequently asking for her cell phone and then when put in her hand continues to ask for her cell phone. She did receive Morphine 3mg IV x 2 last evening and one dose of Oxycodone 5mg PO. She is reporting improved pain relief this morning. Physical Exam Physical Exam: GENERAL: This is an 81 year old female. Difficult to communicate with due to lethargy and confusion. HEAD/FACE: Normocephalic and atraumatic. EYES: No drainage or conjunctival injection. ENT: Dry oral mucosa. NECK: Full ROM without apparent pain. No swelling or masses noted. RESPIRATORY: Patient with unlabored breathing. No signs of respiratory distress. CHEST/AXILLA: Chest movement symmetrical. No deformities noted. SKIN: Ocean, warm and dry. No rash noted. MS/EXTREMITY: No swelling, no deformities. Moving extremities appropriately. NEURO: Patient is awake. Speech is mumbled and difficult to understand.
[2021-06-15] MEDS: SODIUM CHLORIDE 0.9% 1000ML 1,000 ML IV SCH (09:47)
--- NOTE | 2021-06-15 11:20 | Palliative Care Progress Note ---
Date of Service June 15, 2021 Assessment & Plan (1) Cancer related pain: Plan: She remains quite sedated with pain medication. She tells me that oxycodone was effective for pain at home. She also notes that pain has improved after BM x 2. Her renal function has improved somewhat but GFR is still in low 30s. Even at low dose, she may be having effects from morphine metabolites. Will d/c morphine and use oxycodone prn with scheduled dose prior to radiation. Discussed with Rn. (2) Palliative care encounter: Plan: Ольга has said that she wants to discuss the plan for her care moving forward and recognizes that she is very ill. Unfortunately, she is still very sedated and does not feel able to have that conversation today. Her son, Jadon, was at bedside. Plan to discuss goals of care further tomorrow when hopefully she will be more clear. Jadon will call with questions or concerns. (3) CKD (chronic kidney disease), stage III: (4) Acute kidney injury superimposed on chronic kidney disease: (5) Complicated UTI (urinary tract infection): (6) Sepsis: (7) Bladder cancer: Admission and Anticipated Discharge Date Admission Date: June 07, 2021 Subjective Confused at times. Still lethargic. She feels that she is more clear today but having difficulty completing sentences and fell asleep mid transfer to the [facility] for transport radiation oncology. She denies pain at this time. Last morphine dose of 1mg at 830 prior to radiation. She tells me that she was taking oxycodone once a day at night prior to admission. Review of Systems Review of Systems: Unobtainable due to reduced consciousness [place] Symptom Assessment Scale Pain 0/3 Dyspnea 0/3 Anxiety 1/3 Fatigue 2/3 Drowsiness 2/3 Palliative Performance Score 20% Physical Exam Constitutional: + ill appearing ENMT: Mouth: + dry oral mucous membranes Respiratory: normal respiratory effort tracheal secretions Cardiovascular: Rate/Rhythm: regular rate and regular rhythm Neurologic: mild confusion Results & Data ([facility]) Vital Signs (Past 12 Hours) Vital Signs Temp Pulse Pulse Resp BP Pulse Ox 06/15/21 08:00 105 H 06/15/21 07:06 97.9 F 110 H 20 146/70 H 92 06/15/21 03:37 97.3 F L 106 H 22 133/75 96 PG Care Time/CCT Total # of Minutes Spent Total Time Spent: 38 Total Time Spent with Patient: Total time spent is greater than 50% in coordination of care (as documented) at patient's floor/unit and/or counseling patient: goals of care, symptom management, coordination of care Coding Level of Care Code 96544 Subseq Hosp Care Lvl 3 Diagnoses Cancer related pain G89.3 Palliative care encounter Z51.5 CKD (chronic kidney disease), stage III N18.30 Acute kidney injury superimposed on chronic kidney disease N17.9; N18.9 Complicated UTI (urinary tract infection) N39.0 Sepsis A41.9 Bladder cancer C67.9
[2021-06-15 12:19] LABS: Anti Nuclear Antibody Screen POSITIVE (NEGATIVE)
--- NOTE | 2021-06-15 15:13 | Hospitalist Progress Note ---
Date of Service June 08, 2021 (late entry) Assessment & Plan (1) Sepsis: (2) Complicated UTI (urinary tract infection): Plan: This is an 81yo F with a PMH of recurrent bladder cancer, metastasis to lung, cancer related pain, opioid induced, constipation, CKD III, HTN and other medical problems listed below who [facility] evaluation of subjective fevers, generalized weakness and was found to have sepsis 2/2 complicated UTI. Afebrile, BP stable, wbc 16.88k, procal 2.01, lactate 2.1 -> 1.9 UA grossly abnormal, started on empiric Rocephin which will be continued Follow urine, blood cultures CXR and CT abd/pelvis without acute changes or evidence of infection IV fluids (3) Acute kidney injury superimposed on chronic kidney disease: Plan: Cr 1.9 (baseline ~1 but trending upwards for past month) in setting of poor PO intake, recently started on Keytruda Urine studies pending Continue IV fluids Holding losartan Repeat renal labs (4) Bladder cancer: Plan: Diagnosed in 2018 with recurrence S/p cystectomy with ureteroileal conduit at [facility] [place] in November [address] Paul Galicia of medical oncology and Dr. Amrita Galicia for rad onc Started Keytruda 3 weeks ago and was scheduled for first palliative external beam radiation therapy to recurrent pelvic mass on day of presentation Recently established with [facility] palliative care as well to readdress goals (see HPI) Contacted this AM by outpt provider about POLST - printed POLST from [employer] - will be scanned to [facility]. record (5) Cancer related pain: Plan: Continue oxycodone 10mg Q4H PRN, adding lidocaine patch Family interested in medical marijuana - will discuss with OP palliative care Avoiding Tylenol given worsening transaminitis, nsaids given YAKELIN (6) Elevated LFTs: Plan: Up trending LFTs over the past month - patient inadvertently taking too much tylenol (1,000mg Q6H) but recently decreased to 500mg Q6H On day of admission - tbili 1.3, AST 133, ALT 106, alk phos 479 Keytruda possibly contributing ? Hold tylenol for now, trend CMP No RUQ pain at this time, but will consider US if not improving or if pain develops (7) Hypertension: Plan: BP currently 123/50 Continue Amlodipine, Toprol Holding losartan in setting of YAKELIN DVT Ppx: SQ heparin Code status: DNR/DNI PCP: Sherin Rivera Dispo: Admitted to PCU. Discharge planning ordered Admission and Anticipated Discharge Date Admission Date: June 07, 2021 Subjective Pt seen in follow up of UTI Contacted by pt's outpt provider this AM about completed POLST - POLST printed out from [employer] and will be scanned to [facility] [employer]. record Pt is currently sitting up in bed in NAD Has some nausea and would like some broth instead of regular food, otherwise she actually reports feeling better than yesterday No fever, chills, chest pain, shortness of breath Reports some chronic pelvic discomfort Review of Systems Review of Systems: All systems reviewed & are unremarkable except as noted in Subjective Physical Exam Physical Exam: General: elderly, chronically ill appearing F in NAD Head: normocephalic, atraumatic Eyes: normal inspection, PERRL, EOMI, conjunctivae normal, anicteric sclerae ENT: external ear and nose normal, oropharynx normal Neck: normal visual inspection Respiratory: normal respiratory effort, lungs clear to auscultation, no wheeze, rales, rhonchi. No accessory muscle use Cardiovascular: regular rate, rhythm, no murmur, no LE edema. Chest: normal inspection of chest Abdomen/GI: normal bowel sounds, soft, mildly tender suprapubic area : +Ileal conduit opening RLQ Extremities/MSK: extremities motor strength 5/5 Neurologic: PERRL, EOMI, no face palsy, no dysarthria, moves all extremities Psychiatric: A+Ox3, euthymic affect Skin: no rashes, normal color, warm/dry
[2021-06-15] MEDS: oxyCODONE HCL IR 5 MG TAB (IMMEDIATE RELEASE) PO PRN (16:08)
--- NOTE | 2021-06-15 18:27 | Hospitalist Progress Note ---
Date of Service June 15, 2021 Assessment & Plan (1) Sepsis: (2) Complicated UTI (urinary tract infection): (3) Proctitis: Plan: 81yo F with a PMH of recurrent bladder cancer, metastasis to lung, cancer related pain, opioid induced, constipation, CKD III, HTN was sent 06/07 from [facility] for further evaluation of subjective fevers, generalized weakness. Follows with Dr. Paul Galicia of medical oncology and Dr. Amrita Galicia for rad onc. She is being managed for the following: #. Sepsis: #. 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 Pt has urostomy bag in situ. At presentation - Afebrile, BP stable, wbc 16.88k, procal 2.01, lactate 2.1 -> 1.9 Sepsis resolved, patient was doing better, WBC started uptrending, right upper quadrant pain, suspect bowel infection though imaging negative, pro-Ben elevated, continue with Rocephin and metronidazole Patient recently treated for UTI sepsis with Rocephin and improved and then WBC/procalcitonin started uptrending CXR and 06/07 CT abd/pelvis without acute changes or evidence of infection. Repeat CT abdomen pelvis 06/12: Rectal wall thickening with perirectal inflammation and prominent perirectal lymph nodes suggestive of nonspecific proctitis along with distended gallbladder with trace upper abdominal ascites. 06/12 ERCP showed distended gallbladder but no cholelithiasis/biliary duct dilation or choledocholithiasis. Follow-up with urinalysis and blood culture. Continue with Rocephin and metronidazole. #. Acute kidney injury superimposed on chronic kidney disease: Cr 1.9 (baseline ~1 but trending upwards for past month) in setting of poor PO intake, recently started on Keytruda Creatinine downtrending, monitor off of IV fluids. Held losartan. Continue to monitor BMP daily. #. Dry mouth She reports dry mouth since coming to the hospital this time. Awaiting LEONARDA, suspect immunologic process versus environmental [patient does not have a problem with swallowing food and does not complain of dry eyes]. Patient will need follow-up with PCP as an outpatient. Patient reporting improvement in her dry mouth with pilocarpine and wishes to continue with it. #. Bladder cancer: Diagnosed in 2018 with recurrence S/p cystectomy with [place]teroileal [place] [facility] [place] [address] Paul Galicia of medical oncology and Dr. Amrita Galicia for rad onc Started Keytruda 3 weeks ago and was scheduled for first palliative external beam radiation therapy to recurrent pelvic mass on the day of presentation Recently established with [facility] palliative care as well to readdress goals Radiation oncology consulted, patient undergoing palliative radiation while inpatient. GI recommending stopping Keytruda given her continuous elevation in LFTs. Dr. Alfie Galicia updated 06/15 and will decide on this upon evaluation as an outpatient. Patient is having increasing pain, I believe that she will get more improvement in the pain after few series of palliative radiation and palliative care is on board. #. Cancer related pain: #. Constipation due to opiates Continue oxycodone 10mg Q4H PRN, adding lidocaine patch Family interested in medical marijuana - will discuss with OP palliative care Avoiding Tylenol given worsening transaminitis, nsaids given YAKELIN Will consider Relistor if patient continues to be constipated despite adequate oral intake. 06/12, patient reported increased right belly pain, CT abdomen pelvis ordered, formal read pending IV as needed pain meds, consult pain management. Trial of Relistor for 3 to 4 days. Patient reports having bowel movement. Continue with pain medication. #. Elevated LFTs: Up trending LFTs over the past month - patient inadvertently taking too much tylenol (1,000mg Q6H) but recently decreased to 500mg Q6H At presentation - tbili 1.3, AST 133, ALT 106, alk phos 479 Keytruda possibly contributing GI consulted: Likely Keytruda contributing on background of metastatic disease, recommends discontinuing Keytruda, MRCP to verify no ductal abnormalities. Viral and autoimmune serology to follow. LEONARDA pending Hold tylenol for now, trend CMP 06/12 MRCP: Distended gallbladder. No cholelithiasis, biliary ductal dilation or choledocholithiasis. #. Hypertension: Fairly under control Continue Amlodipine, Toprol and hold losartan until YAKELIN resolves DVT Ppx: SQ heparin Code status: DNR/DNI PCP: Sherin Rivera Dispo: Admitted to PCU. Discharge planning ordered. OT recommending 24/7 supervision and home health OT. Patient reports that her son has just come out of rehab, and She won't get enough care at her home. Indicated that she wants to go to rehab. CM working on [employer]. 06/14 patient's son Everton updated about patient's status over the phone, answered all his questions, discussed plan of care going forward, he voiced understanding and was agreeable. Palliative care enters with family and the patient, will follow. 06/15 patient's son Everton updated in person at bedside, answered all his questions, he voiced understanding and was agreeable to the plan of care. Admission and Anticipated Discharge Date Admission Date: June 07, 2021 Subjective Patient was lying in bed, lethargic, AOx3. Patient has moved 2 bowels yesterday and feeling better with her belly pain. But she still has pain with movement. Patient reports improvement in her dry mouth due to pilocarpine. Patient denies headache/dizziness/other review of symptoms. Patient's son Everton was present at bedside, we discussed her status and plan of care, he voiced understanding and was agreeable. Physical Exam Physical Exam: GENERAL: Alert and oriented x3. mild distress, on RA. HEENT: No pallor, no icterus. Pupils equal, round and reactive to light. Oral mucosa moist. NECK: No JVD, no neck masses. HEART: S1 and S2 heard. Regular rate and rhythm. Systolic murmur at pulmonic area, no gallop. RESPIRATORY SYSTEM: Normal AP diameter. No accessory muscle use. No wheezing, no crackles. ABDOMEN: Soft, bowel sounds present, right upper quadrant tendernessimproved, no distention. Right urostomy bag with urine collection. No rebound tenderness. CENTRAL NERVOUS SYSTEM: No facial droop. Speech is clear. Obeys simple commands. Moves extremities. EXTREMITIES: No edema, no erythema seen. Results & Data Results & Data ([facility]) Vital Signs (Past 12 Hours) Vital Signs Temp Pulse Pulse Resp BP Pulse Ox 06/15/21 16:08 36.4 C L 102 H 18 123/52 L 95 06/15/21 15:08 101 H 06/15/21 11:43 35.7 C L 100 H 18 122/57 L 96 06/15/21 08:00 105 H 06/15/21 07:06 36.6 C 110 H 20 146/70 H 92
[2021-06-15 18:54] LABS: Appearance Urine Clear (Clear); Bacteria Urine Automated 1+ (Negative); Bilirubin Urine 1+ (Negative); Blood Urine Negative (Negative); Color Urine Dark Yellow; Epithelial Cell Urine Auto >30 /lpf (0-5); Glucose Urine UA Negative (Negative); Ketones Urine Trace (Negative); Leukocyte Esterase Urine Trace (Negative); Nitrite Urine Positive (Negative); Protein Urine 1+ (Negative); RBC Urine Automated 0-4 /hpf (0-4); Specific Gravity Urine 1.018 (1.000-1.030); Urobilinogen Urine Negative (Negative); pH Urine 6.5 (4.5-7.5)
[2021-06-15] MEDS: CYANOCOBALAMIN 500 MCG TABLET (VITAMIN B-12) PO SCH (23:02)
[2021-06-15] MEDS: amLODIPine BESYLATE 5 MG TAB PO SCH (23:02)
[2021-06-15] MEDS: METOPROLOL SUCC 25MG EXT REL TAB PO SCH (23:03)
[2021-06-16] MEDS: ALBUMIN 25% 12.5 GM/50 ML VIAL IV SCH (00:24)
[2021-06-16 00:42] VITALS: O2SAT 95
[2021-06-16] MEDS: cefTRIAXone SODIUM 1,000 MG in DEXTROSE 5% 50 ML IV SCH (00:54)
[2021-06-16] MEDS: metroNIDAZOLE 500 MG/100 ML BAG IV SCH ×2 (01:35→08:08)
[2021-06-16 04:58] VITALS: TEMP 97.7
[2021-06-16] MEDS: HEPARIN SOD 5,000 UNIT/0.5 ML VIAL SQ SCH (05:40)
[2021-06-16 06:25] LABS: Hematocrit (blood only) 33.4 % (37-47); Hemoglobin 10.9 g/dL (12.0-16.0); Mean Corpuscular Hgb Conc 32.6 g/dL (32-36); Mean Corpuscular Volume 88.8 fL (80-100); Mean Platelet Volume 11.2 fL (7.4-10.4); Platelet Count 208 K/uL (130-400); RDW Coefficient of Variation 15.3 % (11.5-14.5); RDW Standard Deviation 49.7 fL (36.4-46.3); Red Blood Count 3.76 M/uL (4.2-5.4); White Blood Count 23.58 K/uL (4.8-10.8)
[2021-06-16] MEDS: SODIUM CHLORIDE 0.9% 1000ML 1,000 ML IV SCH (06:57)
[2021-06-16] MEDS: DOCUSATE SODIUM 100 MG CAP PO SCH (06:57)
[2021-06-16 07:19] LABS: BUN Creatinine Ratio 37.3 (10-20); Calcium 9.4 mg/dl (8.5-10.1); Creatinine Clr Calc Pharmacy 21.5 ml/min; Est GFR (African American) 25.6 ml/min; Est GFR (Non-African American) 22.1 ml/min; Potassium 3.8 mmol/L (3.5-5.1)
[2021-06-16 07:37] VITALS: BP 111/63
[2021-06-16] MEDS: METHYLNALTREXONE BROMIDE 12 MG/0.6 ML VIAL SQ SCH (08:07)
[2021-06-16] MEDS: LIDOCAINE 5% 1 PATCH TD SCH (08:08)
[2021-06-16] MEDS: oxyCODONE HCL SOLN 5 MG/5 ML UDC PO SCH ×2 (08:44→08:48)
[2021-06-16] MEDS: LACTULOSE SYRUP 30 GM/45 ML UDP PO SCH (08:47)
[2021-06-16] MEDS: MAGNESIUM CITRATE 296 ML/BTL PO SCH (08:47)
[2021-06-16] MEDS: PANTOprazole 40 MG TAB PO SCH (08:47)
[2021-06-16] MEDS: POLYETHYLENE (MIRALAX) 17 GM PACK PO SCH (08:48)
[2021-06-16] MEDS: PILOCARPINE HCL 5 MG TABLET PO SCH (08:48)
[2021-06-16] MEDS: SENNA 8.6 MG TAB PO SCH (08:48)
[2021-06-16 09:44] VITALS: PULSE 103
[2021-06-16] MEDS ORDERED: DEXTROSE 5% 500 ML IV SCH (10:00)
--- NOTE | 2021-06-16 11:09 | Palliative Care Progress Note ---
Date of Service June 16, 2021 Assessment & Plan (1) Cancer related pain: Plan: Continue prn oxycodone which has been effective for her. She is not able to swallow medications. Will change order to oxycodone oral concentrate to avoid any excessive sedation as family is at bedside. (2) Palliative care encounter: Plan: I met with Ольга's two sons and daughter and updated them. Despite treatment she has progressive leukocytosis and renal failure. She has declining functional and mental status independent of medications. Unfortunately, her prognosis is poor. I talked with them about options for her care moving forward. Unfortunately, she is not able to participate in goals of care conversation. They are with her at bedside and have asked for pastoral care support. After further discussion with Jadon, they would prefer to focus on comfort directed care at this time. Discussed with Dr. Ayers and RN. Orders adjusted. (3) Sepsis: (4) Bladder cancer: (5) Acute kidney injury superimposed on chronic kidney disease: Admission and Anticipated Discharge Date Admission Date: June 07, 2021 Subjective Remains lethargic. Does respond and has consistently indicated that she has not had pain this morning. No opioids since yesterday at 8am. Had delirium in radiation oncology per provider. Review of Systems Review of Systems: Unobtainable due to reduced consciousness Gilchrist Symptom Assessment Scale Pain 0/3 Dyspnea by observation 0/3 Drowsiness 2/3 Palliative Performance Score 20% Physical Exam Constitutional: + lethargic restless ENMT: Mouth: + dry oral mucous membranes Respiratory: no labored breathing Cardiovascular: Rate/Rhythm: regular rate and regular rhythm Gastrointestinal (Abdomen): soft Musculoskeletal: extremities cool to touch Results & Data ([facility]) Vital Signs (Past 12 Hours) Vital Signs Temp Pulse Pulse Resp BP BP Pulse Ox 06/16/21 08:00 103 H 06/16/21 07:37 97.7 F 106 H 14 111/63 95 06/16/21 04:47 97.7 F 100 H 16 137/68 95 06/16/21 00:20 98.4 F 110 H 18 145/72 H 95 PG Care Time/CCT Total # of Minutes Spent Total Time Spent: 45 Total Time Spent with Patient: Total time spent is greater than 50% in coordination of care (as documented) at patient's floor/unit and/or counseling patient:symptom management, goals of care, family education and support Coding Level of Care Code 27883 Subseq Hosp Care Lvl 3 Diagnoses Cancer related pain G89.3 Palliative care encounter Z51.5 Sepsis A41.9 Bladder cancer C67.9 Acute kidney injury superimposed on chronic kidney disease N17.9; N18.9
[2021-06-16] MEDS ORDERED: LORazepam 0.5 MG/1 ML VIAL IV PRN (12:26)
[2021-06-16] MEDS ORDERED: GLYCOPYRROLATE 0.2 MG/ML VIAL IV PRN (12:26)
[2021-06-16] MEDS: oxyCODONE HCL SOLN 5 MG/5 ML UDC PO PRN ×2 (14:41→18:32)
--- NOTE | 2021-06-16 15:27 | Nephrology Consultation ---
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 Allergies Allergy/AdvReac Type Severity Reaction Status Date / Time ciprofloxacin [From Cipro] Allergy Mild Unknown Verified 06/07/21 11:48 levofloxacin [From Levaquin] Allergy Mild Unknown Verified 06/07/21 11:48 methohexital [From Brevital] Allergy Mild Unknown Verified 06/09/21 20:57 Penicillins Allergy Mild Unknown Unverified 06/07/21 11:48 Sulfa (Sulfonamide Allergy Mild Unknown Unverified 06/07/21 11:48 Antibiotics) Home Medications Medication Instructions Recorded Confirmed Type cyanocobalamin (vitamin B-12) 1,000 mcg PO HS 11/26/20 06/07/21 History 1,000 mcg tablet (Vitamin B-12) losartan 100 mg tablet 100 mg PO HS 11/26/20 06/07/21 History metoprolol succinate 25 mg 25 mg PO HS tab 05/28/21 06/07/21 History tablet,extended release 24 hr oxycodone 10 mg tablet 10 mg PO Q4H PRN 05/28/21 06/07/21 History acetaminophen 500 mg tablet 500 mg PO Q6H PRN 06/07/21 06/07/21 History (Tylenol Extra Strength) amlodipine 5 mg tablet (Norvasc) 5 mg PO HS 06/07/21 06/07/21 History ondansetron HCl 8 mg tablet 8 mg PO Q8H PRN 06/07/21 06/07/21 History pantoprazole 20 mg tablet,delayed 20 mg PO DAILY 06/07/21 06/07/21 History release polyethylene glycol 3350 17 17 g PO DAILY 06/07/21 06/07/21 History gram/dose oral powder (Miralax) sennosides 8.6 mg tablet (senna) 8.6 mg PO BID 06/07/21 06/07/21 History Patient History Medical History Bladder cancer (~02/2018) CKD (chronic kidney disease), stage III Generalized weakness Hiatal hernia s/p Repair History of chemotherapy 07/21/2020 - 10/07/2020 - Gemcitabine + Carboplatin Local BCG + Mitomycin BCG (Intravescial) Planning - Keytruda q 21 days (with Dr. Alfie Galicia) Hypertension Port-A-Cath in place Retinal lesion "treat localized" Surgical History History of cataract extraction History of laparoscopic appendectomy History of repair of hiatal hernia (2016) History of tonsillectomy and adenoidectomy History of total hysterectomy with bilateral salpingo-oophorectomy (BSO) (11/11/20) History of transurethral destruction of bladder lesion x 5 S/P ileal conduit (11/11/20) Family History Mother , Passed age 89 of "brain bleeding" complications No problems noted. Father , Passed age 86 of natural causes Prostate cancer, Onset Age: 55 Radiation - did well after Brother , Passed age 4 of Hydrocephalus No problems noted. Brother , Passed age 21 of drug overdose No problems noted. Sister Breast cancer, Onset Age: 56 Son No problems noted. Daughter No problems noted. 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
--- NOTE | 2021-06-16 16:50 | Hospitalist Progress Note ---
Date of Service June 16, 2021 Assessment & Plan (1) Sepsis: (2) Complicated UTI (urinary tract infection): (3) Proctitis: Plan: per Dr. uH's notes with addendum: 81yo F with a PMH of recurrent bladder cancer, metastasis to lung, cancer related pain, opioid induced, constipation, CKD III, HTN was sent 06/07 from [facility] for further evaluation of subjective fevers, generalized weakness. Follows with Dr. Paul Galicia of medical oncology and Dr. Amrita Galicia for rad onc. She is being managed for the following: #. Sepsis: #. Complicated UTI (urinary tract infection)/ureteral ileal conduit associated UTI #. Proctitis Sent from [facility] 06/07 for further evaluation of subjective fevers, generalized weakness and was found to have sepsis 2/2 complicated UTI in the ED. Pt has urostomy bag in situ. At presentation - Afebrile, BP stable, wbc 16.88k, procal 2.01, lactate 2.1 -> 1.9 Sepsis resolved, patient was doing better, WBC started uptrending, right upper quadrant pain, suspect bowel infection though imaging negative, pro-Ben elevated, continue with Rocephin and metronidazole Patient recently treated for UTI sepsis with Rocephin and improved and then WBC/procalcitonin started uptrending CXR and 06/07 CT abd/pelvis without acute changes or evidence of infection. Repeat CT abdomen pelvis 06/12: Rectal wall thickening with perirectal inflammation and prominent perirectal lymph nodes suggestive of nonspecific pro ctitis along with distended gallbladder with trace upper abdominal ascites. 06/12 ERCP showed distended gallbladder but no cholelithiasis/biliary duct dilation or choledocholithiasis. Follow-up with urinalysis and blood culture. Continue with Rocephin and metronidazole. 06/16 patient has become lethargic, confused,weak Na lower, renal function worsening Dr. House discussed case and goals of care with family they have decided to proceed with comfort measures #. Acute kidney injury superimposed on chronic kidney disease: Cr 1.9 (baseline ~1 but trending upwards for past month) in setting of poor PO intake, recently started on Keytruda Creatinine downtrending, monitor off of IV fluids. Held losartan. #. Bladder cancer: Diagnosed in 2018 with recurrence S/[place]tero[place] [facility] Palliative Care service consulted #. Cancer related pain: #. Constipation due to opiates Trial of Relistor provided with pain medications #. Elevated LFTs: Up trending LFTs over the past month - patient inadvertently taking too much tylenol (1,000mg Q6H) but recently decreased to 500mg Q6H At presentation - tbili 1.3, AST 133, ALT 106, alk phos 479 Keytruda possibly contributing GI consulted: Likely Keytruda contributing on background of metastatic disease, recommends discontinuing Keytruda, MRCP to verify no ductal abnormalities. Viral and autoimmune serology to follow. LEONARDA pending 06/12 MRCP: Distended gallbladder. No cholelithiasis, biliary ductal dilation or choledocholithiasis. #. Hypertension: Amlodipine, Toprol Admission and Anticipated Discharge Date Admission Date: June 07, 2021 Subjective ff up for sepsis, uti, etc seen resting in bed, very lethargic not in distress has been confused, lethargic since the night before per RN no other issues discussed with Dr. House she has discussed case with patient's family, they have decided to proceed with comfort measures Review of Systems Review of Systems: Unobtainable due to cognitive status Results & Data Results & Data ([facility]) Vital Signs (Past 12 Hours) Vital Signs Temp Pulse Pulse Resp BP Pulse Ox 06/16/21 08:00 103 H 06/16/21 07:37 36.5 C 106 H 14 111/63 95 all noted and reviewed including below
[2021-06-16] MEDS: HYDROmorphone INJ 0.5 MG/0.5 ML SYR IV PRN ×2 (16:55→18:16)
[2021-06-17 01:52] LABS: Alpha 1 Antitrypsin 255 mg/dL (83-199); Anti Mitochondrial Antibody NEGATIVE (NEGATIVE); CMV IgM Antibody <30.00 AU/mL; Ceruloplasmin 46 mg/dL (18-53); Parvovirus IgG 0.1 (<0.9); Parvovirus IgM 0.1 (<0.9); Smooth Muscle Antibody NEGATIVE (NEGATIVE)
--- NOTE | 2021-06-17 08:03 | Death Pronouncement Note ---
Date of Service June 16, 2021 Pronouncement Note Admission Date Admission Date: June 07, 2021 Date and Time of Date of : 06/16/21 Time of : 19:35 Contributing Factors (1) Sepsis: (2) Complicated UTI (urinary tract infection): (3) Proctitis: Additional Data Confirmation of : no pulse, no respirations, no heart sounds and pupils fixed and dilated Family: at bedside Attending physician: Alton Ayers MD
--- NOTE | 2021-06-28 11:22 | Discharge Summary ---
Date of Service June 28, 2021 Admission HPI Per Admitting Provider This is an 81yo F with a PMH of recurrent bladder cancer, metastasis to lung, cancer related pain, opioid induced, constipation, CKD III, HTN and other medical problems listed below who was sent from [facility] for further evaluation of subjective fevers, generalized weakness. Follows with Dr. Paul Galicia of medical oncology and Dr. Amrita Galicia for rad onc. Started Keytruda 3 weeks ago and was scheduled for first palliative external beam radiation therapy to recurrent pelvic mass today but was feeling poorly and was sent over by [facility] for further evaluation in ED. Has been feeling progressively more weak an d fatigued over the past 2 weeks. Ongoing pelvic pain. Denies any fever or chills. No headache, lightheadedness, chest pain, SOB, nausea, vomiting, abdominal pain. Poor appetite over the past 3 weeks with decreased PO intake. Issues with constipation on opioids. Adjusted bowel regimen in past few weeks. Recently established with outpatient [facility] palliative care to better address goals of addressing pain and improving quality of life. Is a DNR/DNI but agreeable to IV antibiotics. Admission Exam (Per Admitting) Constitutional General Appearance: WD/WN, vitals as above, NAD, sitting up in bed, pleasant, conversing easily Head: normocephalic, atraumatic Eyes: normal inspection, PERRL, conjunctivae normal, anicteric sclerae ENT: external ear and nose normal, oropharynx normal Neck: normal visual inspection, trachea midline, no thyromegaly Respiratory: normal respiratory effort, lungs clear to auscultation, no wheeze, rales, rhonchi. No accessory muscle use Cardiovascular: regular rate, rhythm, no murmur, normal peripheral pulses, no BLE edema. Vessels: no JVD Chest: normal inspection of chest Abdomen/GI: normal bowel sounds, soft, nontender, no hepatosplenomegaly : +Ileal conduit opening RLQ Extremities/Musculoskeletal: no cyanosis or clubbing, extremities motor strength 5/5 Neurologic: PERRL, EOMI, accommodation nl, no face palsy, no dysarthria, CN's II-XI intact bilaterally and moves all extremities Psychiatric: A+Ox3, euthymic affect Skin: no rashes, normal color, warm/dry Discharge Data Consultations 06/07/21 13:39 ED Decision to Admit Stat 06/09/21 17:09 Consult Radiation Oncology Routine 06/10/21 09:54 Consult Gastroenterology Routine 06/12/21 10:08 Consult Pain Management Routine 06/13/21 10:16 Consult Palliative Care Routine 06/16/21 09:58 Consult Nephrology Routine Hospital Course (1) Sepsis: (2) Complicated UTI (urinary tract infection): (3) Proctitis: per Dr. Hu's notes with addendum: 81yo F with a PMH of recurrent bladder cancer, metastasis to lung, cancer related pain, opioid induced, constipation, CKD III, HTN was sent 06/[address] [facility] for further evaluation of subjective fevers, generalized weakness. Follows with Dr. Paul Galicia of medical oncology and Dr. Amrita Galicia for rad onc. She is being managed for the following: #. Sepsis: #. Complicated UTI (urinary tract infection)/ureteral ileal conduit associated UTI #. Proctitis Sent from [facility] 06/07 for further evaluation of subjective fevers, generalized weakness and was found to have sepsis 2/2 complicated UTI in the ED. Pt has urostomy bag in situ. At presentation - Afebrile, BP stable, wbc 16.88k, procal 2.01, lactate 2.1 -> 1.9 Sepsis resolved, patient was doing better, WBC started uptrending, right upper quadrant pain, suspect bowel infection though imaging negative, pro-Ben elevated, continue with Rocephin and metronidazole Patient recently treated for UTI sepsis with Rocephin and improved and then WBC/procalcitonin started uptrending CXR and 06/07 CT abd/pelvis without acute changes or evidence of infection. Repeat CT abdomen pelvis 06/12: Rectal wall thickening with perirectal inflammation and prominent perirectal lymph nodes suggestive of nonspecific proctitis along with distended gallbladder with trace upper abdominal ascites. 06/12 ERCP showed distended gallbladder but no cholelithiasis/biliary duct dilation or choledocholithiasis. Follow-up with urinalysis and blood culture. Continue with Rocephin and metronidazole. 06/16 patient has become lethargic, confused,weak Na lower, renal function worsening Dr. House discussed case and goals of care with family they have decided to proceed with comfort measures #. Acute kidney injury superimposed on chronic kidney disease: Cr 1.9 (baseline ~1 but trending upwards for past month) in setting of poor PO intake, recently started on Keytruda Creatinine downtrending, monitor off of IV fluids. Held losartan. #. Bladder cancer: Diagnosed in 2018 with recurrence S/p cystectomy with [place]al [place] [facility] [place] Palliative Care service consulted #. Cancer related pain: #. Constipation due to opiates Trial of Relistor provided with pain medications #. Elevated LFTs: Up trending LFTs over the past month - patient inadvertently taking too much tylenol (1,000mg Q6H) but recently decreased to 500mg Q6H At presentation - tbili 1.3, AST 133, ALT 106, alk phos 479 Keytruda possibly contributing GI consulted: Likely Keytruda contributing on background of metastatic disease, recommends discontinuing Keytruda, MRCP to verify no ductal abnormalities. Viral and autoimmune serology to follow. LEONARDA pending 06/12 MRCP: Distended gallbladder. No cholelithiasis, biliary ductal dilation or choledocholithiasis. #. Hypertension: Amlodipine, Toprol
== END 2021-06-16 19:35 | disposition expired | DRG 698 ==
LOC: ED 10:21 → 2S 14:13 → SUATTDRO 14:13 → 2S 19:52 → 3E 06-16 18:15